=== PATIENT | female | born 1970 | race Caucasian/White ===

== ENCOUNTER 2018-03-23 13:20 | Emergency (ER) | payer MEDICAID, SELFPAY ==
--- NOTE | 2018-03-23 13:20 | DT_ITS ---
This patient was seen during an EMR downtime March 22, 2018 - March 29, 2018. This patient may have a combination of paper and electronic documentation or all paper documentation. All documentation is viewable within the e-chart portion of [employer] [facility] for each patient visit.
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
[2018-03-26 09:31] LABS: Anion Gap 4 (5-15); BUN 12 mg/dL (7-18); BUN/Creat Ratio 16.7 RATIO (10-20); Calcium,Total 8.9 mg/dL (8.5-10.1); Chloride 103 mmol/L (98-107); Creatinine, Serum 0.72 mg/dL (0.55-1.02); EST Glomerular Filtration Rate 91 mL/min (>60); Est Glom Filt Rate - Afr Amer 110 mL/min (>60); Glucose 98 mg/dL (74-106); Potassium 3.9 mmol/L (3.5-5.1); Sodium Level 139 mmol/L (136-145)
[2018-03-26 12:17] LABS: Hemoglobin 12.9 g/dl (12.0-15.0); Mean Corp Hgb Conc 32.3 g/gl (32-36); Mean Corpuscular Hgb 31.7 pg (27.0-32.0); Mean Corpuscular Volume 98.3 fL (81-99); Mean Platelet Vol. 9.1 fl (6.2-12.0); Platelet Count 253 K/mm3 (150-450); RBC Distribution Width CV 15.8 % (11.6-14.6); RBC Distribution Width SD 56.5 fl (35.1-43.9); Red Blood Count 4.07 M/mm3 (4.2-5.4); Scan Indicated on CBC? Y/N NO; White Blood Count 8.8 K/mm3 (4.4-11.0)
[2018-03-26 12:19] LABS: Partial Thromboplast Time 26.7 Seconds (24.1-36.2)
== END 2018-03-23 18:45 | disposition home or self-care (01) ==
LOC: ED 03-25 07:21
PROVIDERS: Emergency Provider Emergency Medicine
DX: S20.211A Contusion of right front wall of thorax, initial encounter (principal); S50.11XA Contusion of right forearm, initial encounter; Y04.0XXA Assault by unarmed brawl or fight, initial encounter; Y93.9 Activity, unspecified; Y92.009 Unspecified place in unspecified non-institutional (private) residence as the place of occurrence of the external cause; J44.9 Chronic obstructive pulmonary disease, unspecified; Z86.73 Personal history of transient ischemic attack (TIA), and cerebral infarction without residual deficits; E11.9 Type 2 diabetes mellitus without complications; I11.0 Hypertensive heart disease with heart failure; I50.9 Heart failure, unspecified; F17.210 Nicotine dependence, cigarettes, uncomplicated; Z79.899 Other long term (current) drug therapy; K21.9 Gastro-esophageal reflux disease without esophagitis; F41.9 Anxiety disorder, unspecified; F32.9 Major depressive disorder, single episode, unspecified; F10.20 Alcohol dependence, uncomplicated; Z99.81 Dependence on supplemental oxygen
CPT/HCPCS: 71101; 73030; 73090; 80048; 84484; 85027; 85610; 85730; 94640; 96374; 99285; A4216

== ENCOUNTER → 2019-10-17 11:47 | Outpatient (CLI) | payer MEDICAID, SELFPAY | PROVIDERS: Family Provider Family Medicine; PCP Family Medicine; Referring Provider Internal Medicine Pulmonary Disease; Visit Provider Internal Medicine Pulmonary Disease | DX: J40 Bronchitis, not specified as acute or chronic (principal); J45.909 Unspecified asthma, uncomplicated | CPT/HCPCS: 87070; 87205 ==

== ENCOUNTER → 2020-06-05 15:21 | Outpatient (CLI) | payer MEDICAID, SELFPAY ==
[2020-06-05 17:06] LABS: Absolute Lymphocyte Count 2.16 X10^3/uL (0.83-4.51); Absolute Neutrophil Count 5.8 X10^3/uL (2.0-7.7); Basophil# 0.05 X10^3/uL; Basophil% 0.6 % (0-1); Eosinophil# 0.42 X10^3/uL; Eosinophils% 4.7 % (0-5); Hematocrit 39.7 % (37-47); Lymphocyte # 2.16 X10^3/ul (4.0); Lymphocyte % 24.1 % (19-41); Mean Corp Hgb Conc 32.7 g/dL (32-36); Mean Corpuscular Volume 94.7 fL (81-99); Mean Platelet Vol. 9.2 fl (6.2-12.0); Monocyte# 0.48 X10^3/uL; Monocyte% 5.4 % (0-10); NRBC Flagged by Analyzer 0 % (0-5); Neutrophil # 5.81 X10^3/uL (2.7-7.7); Neutrophil % 64.9 % (47-70); Platelet Count 268 K/mm3 (150-450); RBC Distribution Width CV 16.4 % (11.6-14.6); RBC Distribution Width SD 57.1 fl (35.1-43.9); Red Blood Count 4.19 M/mm3 (4.2-5.4)
[2020-06-05 17:30] LABS: AST(SGOT) 13 U/L (15-37); Alanine Aminotransfer ALT/SGPT 19 U/L (13-56); Albumin, Serum 3.7 g/dL (3.2-5.0); Alkaline Phosphatase 62 U/L (45-117); Anion Gap 4 (5-15); BUN 14 mg/dL (7-18); BUN/Creat Ratio 17.3 RATIO (10-20); Calcium,Total 9.1 mg/dL (8.5-10.1); Chloride 102 mmol/L (98-107); Creatinine, Serum 0.81 mg/dL (0.55-1.02); EST Glomerular Filtration Rate 79 mL/min (>60); Est Glom Filt Rate - Afr Amer 95 mL/min (>60); Globulin 3.7 g/dL (2.2-4.2); Glucose 86 mg/dL (74-106); Potassium 3.9 mmol/L (3.5-5.1); Protein, Total 7.4 g/dL (6.4-8.2); Sodium Level 137 mmol/L (136-145); Thyroid Stim Hormone (TSH) 0.49 uIU/mL (0.358-3.74)
== END ==
PROVIDERS: PCP Family Medicine; Visit Provider Family Medicine
DX: E11.9 Type 2 diabetes mellitus without complications (principal); E03.9 Hypothyroidism, unspecified; I50.810 Right heart failure, unspecified
CPT/HCPCS: 36415; 80053; 84443; 85025

== ENCOUNTER 2021-03-16 22:48 | Observation (INO) | payer MEDICAID, SELFPAY ==
[2021-03-16 22:49] VITALS: BP 121/71; PULSE 94; RESP 20; TEMP 37.5; O2SAT 92; BMI 38.9
--- NOTE | 2021-03-16 23:08 | EKG12_ITS ---
Test Reason : SOB Blood Pressure : / mmHG Vent. Rate : 077 BPM Atrial Rate : 077 BPM P-R Int : 126 ms QRS Dur : 108 ms QT Int : 388 ms P-R-T Axes : 012 042 027 degrees QTc Int : 439 ms Normal sinus rhythm Low voltage QRS Right bundle branch block Abnormal ECG Confirmed by ELIZABETH MELO, CITLALY ([id number]), film editor supervisor MARIA SIFUENTES ([id number]) on 03/19/2021 1:50:40 PM Referred By: Confirmed By:CITLALY JOHNSON MD
[2021-03-16] MEDS: Ipratropium/Albuterol Sulfate 3 ML AMPUL.NEB INHALATION (23:14)
--- NOTE | 2021-03-16 23:15 | EDS_ITS ---
HPI History of Present Illness Chief Complaint: Shortness of Breath Informant: patient Narrative Narrative: 50-year-old female notes worsening shortness of breath over the past 3 days. Until recently patient will get most of her care at [facility]. She moved to [place]. She notes a history of COPD and CHF. She states that she started to have a runny nose developed cough and shortness of breath. Is progressively worsened. She notes subjective fever for which she has been taking Tylenol. She has had one Covid vaccination. She does wear home oxygen. She notes significant dyspnea on exertion. [facility] Medical History Chronic obstructive lung disease Chronic respiratory failure Congestive heart failure Coronary atherosclerosis of [place] coronary vessel Diabetes mellitus Dysthymic disorder Hypertension Obesity Tobacco use disorder Home Medications albuterol sulfate 2 puff INHALATION Q4H PRN 03/17/21 [History Last Taken Unknown] aspirin 81 mg DAILY 03/17/21 [History Last Taken Unknown] buspirone 30 mg BID 03/17/21 [History Last Taken Unknown] calcium carbonate [Calcium 600] 600 mg DAILY 03/17/21 [History Last Taken Unknown] cetirizine 10 mg DAILY 03/17/21 [History Last Taken Unknown] clopidogrel 75 mg DAILY 03/17/21 [History Last Taken Unknown] fluoxetine 40 mg DAILY 03/17/21 [History Last Taken Unknown] folic acid 1 mg PO DAILY 03/17/21 [History Last Taken Unknown] furosemide 40 mg PO DAILY 03/17/21 [History Last Taken Unknown] gabapentin 600 mg PO TID 03/17/21 [History Last Taken Unknown] ipratropium-albuterol [DuoNeb] 3 ml INHALATION TID 03/17/21 [History Last Taken Unknown] levothyroxine 75 mcg PO DAILY 03/17/21 [History Last Taken Unknown] losartan 25 mg PO DAILY 03/17/21 [History Last Taken Unknown] metformin 500 mg PO BID 03/17/21 [History Last Taken Unknown] mometasone-formoterol [Dulera] 1 inh INHALATION BID 03/17/21 [History Last Taken Unknown] montelukast 10 mg PO QHS 03/17/21 [History Last Taken Unknown] omeprazole 20 mg DAILY 03/17/21 [History Last Taken Unknown] pravastatin 10 mg PO DAILY 03/17/21 [History Last Taken Unknown] trazodone 200 mg QHS 03/17/21 [History Last Taken Unknown] umeclidinium [Incruse Ellipta] 1 inh INHALATION DAILY 03/17/21 [History Last Taken Unknown] Allergy/AdvReac Type Severity Reaction Status Date / Time alprazolam [From Xanax] AdvReac Other Verified 03/16/21 22:55 no surgical history (Noncontributory) Social History (Updated 03/16/21 @ 23:[address] [place] Mackey, DO) Smoking Status: Current every day smoker tobacco type: cigarettes substance use type: does not use ROS ROS ED Constitutional Constitutional ED: Reports chills and fever(s); Denies weight loss Eyes Eyes: Denies change in vision or diplopia ENT ENT ED: Denies ear pain, rhinorrhea or sore throat Cardiovascular Cardiovascular: Denies chest pain, orthopnea, palpitations or racing heartbeat Respiratory/Chest Respiratory/Chest: Reports cough, dyspnea, dyspnea on exertion and sputum; Denies orthopnea Gastrointestinal Gastrointestinal: Reports abdominal pain and nausea; Denies diarrhea or vomiting Genitourinary Genitourinary ED: Denies dysuria, hematuria or urinary frequency Musculoskeletal Musculoskeletal: Reports myalgias and other Details: Patient notes leg swelling 2 days ago but has improved ; Denies arthralgias Integumentary Denies abscess or rash Neurologic Neurologic: Denies headache(s) or weakness Psychiatric Psychiatric: Denies anxiety, depression, suicidal ideation or suicidal thoughts Endocrine Endocrinology: Denies polydipsia, polyphagia or polyuria Allergic/Immunologic Allergic/Immunologic ED: Denies mouth swelling, tongue swelling or urticaria EXAM Physical Exam Const Vital Signs: 03/16/21 22:49 03/16/21 23:23 03/16/21 23:51 Temperature 99.5 F H 100.0 F H Temperature Source Temporal Temporal Pulse Rate 94 99 87 Respiratory Rate 20 H 20 H 20 H Respiratory Effort Blood Pressure 121/71 H 110/67 Blood Pressure Mean 87 81 Pulse Ox 92 96 Oxygen Delivery Method Nasal Cannula Nasal Cannula Oxygen Flow Rate (L/min) 3 3 Fraction of Inspired Oxygen (FIO2) 03/17/21 00:11 03/17/21 00:15 03/17/21 00:49 Temperature 100.0 F H 101.5 F H Temperature Source Temporal Temporal Pulse Rate 88 87 Respiratory Rate 19 H 20 H Respiratory Effort Short of Breath Labored Blood Pressure 114/65 105/95 H Blood Pressure Mean 81 98 Pulse Ox 96 96 Oxygen Delivery Method Nasal Cannula Nasal Cannula Nasal Cannula Oxygen Flow Rate (L/min) 3 3 Fraction of Inspired Oxygen (FIO2) 3 03/17/21 01:07 03/17/21 02:20 Temperature 101.5 F H 98.9 F Temperature Source Temporal Temporal Pulse Rate 80 64 Respiratory Rate 22 H 16 Respiratory Effort Blood Pressure 109/59 L 103/67 Blood Pressure Mean 75 79 Pulse Ox 95 97 Oxygen Delivery Method Nasal Cannula Nasal Cannula Oxygen Flow Rate (L/min) 3 3 Fraction of Inspired Oxygen (FIO2) Positive well nourished, well developed and obese General Appearance ED: well developed Nutritional Appearance: obese HEENT Reports normocephalic, head/scalp atraumatic and moist mucous membranes HEENT Narrative: Rhinorrhea Eyes PERRL and EOMs intact bilaterally Neck no lymphadenopathy, supple and no JVD Resp Effort and Inspection: other Patient is tachypneic Auscultation: rhonchi and wheezes Cardio regular rate, regular rhythm and no murmurs GI normal to inspection, nondistended, normoactive bowel sounds and non-tender Palpation: soft Back/Spine no CVA tenderness and normal ROM Extremity normal to inspection General Extremety ED: Negative for edema General Extremity: Negative for edema Neuro oriented x3 and CN's II-XII intact bilaterally Sensorium / Orientation: alert Motor Exam: strength 5/5 throughout Psych mental status grossly normal Mood & Affect: Negative for depressed or tearful Skin no rashes or lesions noted and no wounds MDM MDM MDM Narrative Medical decision making narrative: My interpretation of the chest x-ray is no acute process. Patient's white count is 8.5 hemoglobin 11.9. Lactic acid is normal. Troponin is negative. Her temperature continued to rise now up to 101.5. With simple ambulation from the bed to bedside commode even while on supplemental oxygen she desaturates to around 84%. Patient received Solu-Medrol and breathing treatments. Rapid Covid and influenza were negative. Covid PCR was sent and negative. After her Covid PCR was negative we ambulated the patient on 3 L 1 L above her baseline of 2. Heart rate increased from 70-102. Respirations were 30 and her pulse ox 76%. Her lung sounds continue to be wheezing and rhonchorous. I will speak with her hospitalist regarding admission Lab Data Labs: Laboratory Results - last 24 hr 03/16/21 03/16/21 03/16/21 23:40 23:40 23:40 WBC 8.5 RBC 4.03 L Hgb 11.9 L Hct 37.8 MCV 93.8 MCH 29.5 MCHC 31.5 L RDW Std Deviation 59.1 H RDW Coeff of Kirstie 17.2 H Plt Count 265 MPV 8.7 Immature Gran % (Auto) 0.200 Neut % (Auto) 74.5 H Lymph % (Auto) 14.3 L [place] % (Auto) 7.6 Eos % (Auto) 2.9 Baso % (Auto) 0.5 Absolute Neuts (auto) 6.3 Absolute Lymphs (auto) 1.22 Nucleated RBC % 0 PT INR APTT Sodium 138 Potassium 3.8 Chloride 102 Carbon Dioxide 31.0 Anion Gap 5 BUN 7 Creatinine 0.83 Estim Creat Clear Calc 65.59 Est GFR (MDRD) Af Amer 92 Est GFR (MDRD) Non-Af 76 BUN/Creatinine Ratio 8.4 L Glucose 97 Lactic Acid 1.8 Calcium 9.2 Total Bilirubin 0.50 AST 16 ALT 14 Alkaline Phosphatase 88 Troponin I < 0.015 B-Natriuretic Peptide Total Protein 7.2 Albumin 3.3 Globulin 3.9 Albumin/Globulin Ratio 0.8 L Urine Color Urine Clarity Urine pH Ur Specific [place] Urine Protein Urine Glucose (UA) Urine Ketones Urine Occult Blood Urine Nitrite Urine Bilirubin Urine Urobilinogen Ur Leukocyte Esterase Urine RBC Urine WBC Ur Squamous Epith Cells Urine Bacteria Urine Mucus COVID-19 (ROSALIND) 03/16/21 03/16/21 03/17/21 23:40 23:40 00:25 WBC RBC Hgb Hct MCV MCH MCHC RDW Std Deviation RDW Coeff of Kirstie Plt Count MPV Immature Gran % (Auto) Neut % (Auto) Lymph % (Auto) [place] % (Auto) Eos % (Auto) Baso % (Auto) Absolute Neuts (auto) Absolute Lymphs (auto) Nucleated RBC % PT 12.9 INR 1.0 APTT 27.0 Sodium Potassium Chloride Carbon Dioxide Anion Gap BUN Creatinine Estim Creat Clear Calc Est GFR (MDRD) Af Amer Est GFR (MDRD) Non-Af BUN/Creatinine Ratio Glucose Lactic Acid Calcium Total Bilirubin AST ALT Alkaline Phosphatase Troponin I B-Natriuretic Peptide 46.3 Total Protein Albumin Globulin Albumin/Globulin Ratio Urine Color Yellow Urine Clarity Clear Urine pH 6.0 Ur Specific [place] 1.010 Urine Protein Negative Urine Glucose (UA) Normal Urine Ketones Negative Urine Occult Blood Negative Urine Nitrite Negative Urine Bilirubin Negative Urine Urobilinogen Normal Ur Leukocyte Esterase Negative Urine RBC 0 SEEN Urine WBC 0 SEEN Ur Squamous Epith Cells 0-5 SEEN Urine Bacteria 0 SEEN Urine Mucus 0 SEEN COVID-19 (ROSALIND) 03/17/21 01:05 WBC RBC Hgb Hct MCV MCH MCHC RDW Std Deviation RDW Coeff of Kirstie Plt Count MPV Immature Gran % (Auto) Neut % (Auto) Lymph % (Auto) [place] % (Auto) Eos % (Auto) Baso % (Auto) Absolute Neuts (auto) Absolute Lymphs (auto) Nucleated RBC % PT INR APTT Sodium Potassium Chloride Carbon Dioxide Anion Gap BUN Creatinine Estim Creat Clear Calc Est GFR (MDRD) Af Amer Est GFR (MDRD) Non-Af BUN/Creatinine Ratio Glucose Lactic Acid Calcium Total Bilirubin AST ALT Alkaline Phosphatase Troponin I B-Natriuretic Peptide Total Protein Albumin Globulin Albumin/Globulin Ratio Urine Color Urine Clarity Urine pH Ur Specific [place] Urine Protein Urine Glucose (UA) Urine Ketones Urine Occult Blood Urine Nitrite Urine Bilirubin Urine Urobilinogen Ur Leukocyte Esterase Urine RBC Urine WBC Ur Squamous Epith Cells Urine Bacteria Urine Mucus COVID-19 (ROSALIND) Not Detected Radiography Diagnostic Testing: Radiology Impression Chest X-Ray 03/16/21 23:49 IMPRESSION: Normal x-ray examination of the chest. Electronically Signed: Martin Yao MD at 0:50 EDT , Service support , EKG Initial EKG: Attestation: I personally reviewed and interpreted this EKG as follows: Comments: EKG demonstrates a normal sinus rhythm at a rate of 77. Noted right bundle anselmo block. Discharge Plan Dx/Rx/DC Orders Clinical Impression: Acute febrile illness, Asthma exacerbation in COPD, Acute on chronic respiratory failure with hypoxemia Disposition Disposition: [facility]
[2021-03-16] MEDS: Albuterol 2.5 MG/3 ML VIAL.NEB. INHALATION ×3 (23:16)
[2021-03-16 23:23] VITALS: PULSE 99; RESP 20
--- NOTE | 2021-03-16 23:49 | RAD_ITS ---
STUDY: X-RAY CHEST REASON FOR EXAM: Female, 50 years old. cough TECHNIQUE: AP portable chest. COMPARISON: March 23, 2018. FINDINGS: No focal infiltrates or effusions. No pneumothorax. Normal size heart. Normal mediastinum and lonny. Normal visualized pulmonary arteries. Normal visualized aortic arch and descending thoracic aorta. Normal visualized thoracic spine. Normal visualized ribs, clavicles, and shoulders. There is no demonstrated abnormality of the visualized soft tissue structures of the upper abdomen. RAD/Chest 1 View (Portable) IMPRESSION: Normal x-ray examination of the chest. Electronically Signed: Martin Yao MD at 0:50 EDT , Service support ,
[2021-03-16 23:51] VITALS: BP 110/67; PULSE 87; RESP 20; TEMP 37.8; O2SAT 96
[2021-03-16 23:56] LABS: Absolute Lymphocyte Count 1.22 X10^3/uL (0.83-4.51); Absolute Neutrophil Count 6.3 X10^3/uL (2.0-7.7); Basophil# 0.04 X10^3/uL; Basophil% 0.5 % (0-1); Eosinophil# 0.25 X10^3/uL; Eosinophils% 2.9 % (0-5); Hematocrit 37.8 % (37-47); Hemoglobin 11.9 g/dL (12.0-15.0); Lymphocyte # 1.22 X10^3/ul (0.83-4.51); Lymphocyte % 14.3 % (19-41); Mean Corp Hgb Conc 31.5 g/dL (32-36); Mean Corpuscular Hgb 29.5 pg (27.0-32.0); Mean Corpuscular Volume 93.8 fL (81-99); Mean Platelet Vol. 8.7 fl (6.2-12.0); Monocyte# 0.65 X10^3/uL; Monocyte% 7.6 % (0-10); NRBC Flagged by Analyzer 0 % (0-5); Neutrophil # 6.33 X10^3/uL (2.7-7.7); Neutrophil % 74.5 % (47-70); Platelet Count 265 K/mm3 (150-450); RBC Distribution Width CV 17.2 % (11.6-14.6); RBC Distribution Width SD 59.1 fl (35.1-43.9); Red Blood Count 4.03 M/mm3 (4.2-5.4); White Blood Count 8.5 K/mm3 (4.4-11.0)
[2021-03-17] VITALS (19 sets, daily range): BP systolic 89–114; BP diastolic 45–95; PULSE 55–88; RESP 15–22; TEMP 36.6–38.6; O2SAT 92–98; BMI 38.6
[2021-03-17 00:01] LABS: Prothrombin Time (Protime)PT. 12.9 SECONDS (11.7-14.9)
[2021-03-17] MEDS: MethylPREDNISolone 125 MG/2 ML Vial IV (00:09)
[2021-03-17 00:22] LABS: BNP,B-Type NATRIURETIC PEPTIDE 46.3 pg/mL (0-100)
[2021-03-17 00:25] LABS: ALB/GLOB Ratio 0.8 RATIO (0.9-2.4); AST(SGOT) 16 U/L (15-37); Alanine Aminotransfer ALT/SGPT 14 U/L (13-56); Albumin, Serum 3.3 g/dL (3.2-5.0); Alkaline Phosphatase 88 U/L (45-117); Anion Gap 5 (5-15); BUN 7 mg/dL (7-18); BUN/Creat Ratio 8.4 RATIO (10-20); Calcium,Total 9.2 mg/dL (8.5-10.1); Chloride 102 mmol/L (98-107); Creatinine, Serum 0.83 mg/dL (0.55-1.02); EST Glomerular Filtration Rate 76 mL/min (>60); Est Glom Filt Rate - Afr Amer 92 mL/min (>60); Estimated Creatinine Clearance 65.59 ml/min; Globulin 3.9 g/dL (2.2-4.2); Glucose 97 mg/dL (74-106); Lactic Acid 1.8 mmol/L (0.4-1.9); Potassium 3.8 mmol/L (3.5-5.1); Protein, Total 7.2 g/dL (6.4-8.2); Sodium Level 138 mmol/L (136-145)
--- NOTE | 2021-03-17 00:52 | NURSING ---
Patient up to bsc that was placed next to the bed. She became very labored with breathing while ambulating and taking her pants up and down and pulse ox dropped to 88% on 3L NC. Dr Mackey is aware. She was back to 94% in less than 4 minutes.
[2021-03-17] MEDS: Ketorolac 30 MG/ML Syringe IV (01:03)
[2021-03-17] MEDS: Acetaminophen 500 MG Tablet 1000 MG PO (01:03)
[2021-03-17 01:14] LABS: Bacteria 0 SEEN /hpf (None Seen); Mucous, Urine 0 SEEN /hpf (<or=2+); Red Blood Cells-Urine 0 SEEN /hpf (0-5); White Blood Cells 0 SEEN /hpf (0-5)
[2021-03-17 01:16] LABS: Color, Urine Yellow (Yellow); Glucose, Dipstick Normal (Normal); Ketone-Dipstick Negative (Negative); Leukocyte Esterase-Dipstick Negative /ul (Negative); Nitrite-Dipstick Negative (Negative); Occult Blood-Urine Negative /ul (Negative); Protein-Dipstick Negative (Negative); Urine Bilirubin Dipstick Negative (Negative); Urine Clarity Clear (Clear); Urine Urobilinogen Normal (Normal)
[2021-03-17 01:22] LABS: Squamous Epithelial Cells - UA 0-5 SEEN /hpf (5-10)
--- NOTE | 2021-03-17 03:48 | ED.RN ---
PT HR STARTED AT 75 AND ENDED AT 103 BY THE END OF AMBULATION WITH INCREASE IN WHEEZING/ SOB.
[2021-03-17] MEDS: Ipratropium/Albuterol Sulfate 3 ML AMPUL.NEB INHALATION ×6 (03:58→23:35)
--- NOTE | 2021-03-17 04:06 | PCM.HP.STD ---
HPI - General General Date of Admission: 03/17/21 Date of Service: 03/17/21 Chief Complaint: Shortness of breath. HPI Narrative TJ BIGGS, is a 51 F with past medical history as mentioned above presented to the emergency room because of shortness of breath. Her symptoms started 3 to 4 days ago, increasing shortness of breath, both at exertion and with rest, associated with dry cough, runny nose and significant wheezing, she need to go up on her oxygen up to 4 L without improvement and without aggravating or relieving factors. Also, she reported subjective fever. She received her cough vaccine first dose beginning of February and she is supposed to go for the second dose soon. In the emergency department, patient was febrile, blood pressure and heart rate were stable, she required oxygen of up to 3 L. Routine blood work was unremarkable. EKG revealed normal sinus rhythm, RBBB, no acute changes. Troponin was negative. Chest x-ray showed no acute findings. COVID-19 antigen and PCR both came back negative. Nasal swab for influenza a and B were negative. She received IV Solu-Medrol, DuoNeb x2 and albuterol x1 and she remained dyspneic, tachypneic and wheezing. Reportedly, pulse ox after treatment went down to mid 70s with ambulation. She is being admitted for acute COPD exacerbation and acute febrile illness. [facility] Medical History (Updated 03/17/21 @ 04:[address] Mckenna Dudley MD) Congestive heart failure Coronary atherosclerosis of [place] coronary vessel Dysthymic disorder Obesity Tobacco use disorder Home Medications albuterol sulfate 2 puff INHALATION Q4H PRN 03/17/21 [History Last Taken Unknown] aspirin 81 mg DAILY 03/17/21 [History Last Taken Unknown] buspirone 30 mg BID 03/17/21 [History Last Taken Unknown] calcium carbonate [Calcium 600] 600 mg DAILY 03/17/21 [History Last Taken Unknown] cetirizine 10 mg DAILY 03/17/21 [History Last Taken Unknown] clopidogrel 75 mg DAILY 03/17/21 [History Last Taken Unknown] fluoxetine 40 mg DAILY 03/17/21 [History Last Taken Unknown] folic acid 1 mg PO DAILY 03/17/21 [History Last Taken Unknown] furosemide 40 mg PO DAILY 03/17/21 [History Last Taken Unknown] gabapentin 600 mg PO TID 03/17/21 [History Last Taken Unknown] ipratropium-albuterol [DuoNeb] 3 ml INHALATION TID 03/17/21 [History Last Taken Unknown] levothyroxine 75 mcg PO DAILY 03/17/21 [History Last Taken Unknown] losartan 25 mg PO DAILY 03/17/21 [History Last Taken Unknown] metformin 500 mg PO BID 03/17/21 [History Last Taken Unknown] mometasone-formoterol [Dulera] 1 inh INHALATION BID 03/17/21 [History Last Taken Unknown] montelukast 10 mg PO QHS 03/17/21 [History Last Taken Unknown] omeprazole 20 mg DAILY 03/17/21 [History Last Taken Unknown] pravastatin 10 mg PO DAILY 03/17/21 [History Last Taken Unknown] trazodone 200 mg QHS 03/17/21 [History Last Taken Unknown] umeclidinium [Incruse Ellipta] 1 inh INHALATION DAILY 03/17/21 [History Last Taken Unknown] Allergy/AdvReac Type Severity Reaction Status Date / Time alprazolam [From Xanax] AdvReac Other Verified 03/16/21 22:55 no significant family history Surgical History (Updated 03/17/21 @ 04:[address] Mckenna Dudley MD) H/O tubal ligation History of cholecystectomy History of salpingo-oophorectomy Social History (Updated 03/16/21 @ 23:[address] Indio Mackey DO) Smoking Status: Current every day smoker tobacco type: cigarettes substance use type: does not use ROS Constitutional Constitutional: Reports fever(s); Denies anorexia, chills, fatigue or malaise Eyes Eyes: Denies blurry vision, change in eye color, change in vision, double vision or eye pain ENT HEENT: Reports other Details: Runny nose. ; Denies ear pain, epistaxis, headache(s), nasal congestion, post nasal drip or sore throat Cardiovascular Cardiovascular: Denies chest pain, dyspnea on exertion, edema, lightheadedness, orthopnea, palpitations, paroxysmal nocturnal dyspnea or syncope Respiratory/Chest Respiratory/Chest: Reports cough, shortness of breath at rest, shortness of breath with exertion and wheezing; Denies dyspnea, hemoptysis or productive cough Gastrointestinal Gastrointestinal: Denies abdominal pain, constipation, diarrhea, hematemesis, hematochezia, melena, nausea or vomiting Genitourinary Genitourinary: Denies burning urination, dysuria, hematuria, urinary hesitancy or urinary urgency Musculoskeletal Musculoskeletal: Denies arthralgias, back pain, joint pain, joint swelling, myalgias or neck pain Neurologic Neurologic: Denies confusion, dizziness, focal weakness, headache(s), numbness, paresthesias, seizures, tingling or tremor(s) Psychiatric Psychiatric: Reports depression; Denies anxiety, hallucinations, homicidal ideation or suicidal ideation Endocrine Endocrinology: Denies change in body appearance, cold intolerance, heat intolerance, polydipsia or polyuria Hematologic/Lymphatic Hematologic/Lymphatic: Denies easy bleeding, easy bruising or lymphadenopathy Allergic/Immunologic Allergic/Immunologic: Denies itchy eyes, rhinitis, throat swelling, tongue swelling, hives, urticaria or wheezing Vital Signs Vital Signs Vital Signs: 03/16/21 22:49 03/16/21 23:23 03/16/21 23:51 Temperature 99.5 F H 100.0 F H Temperature Source Temporal Temporal Pulse Rate 94 99 87 Respiratory Rate 20 H 20 H 20 H Respiratory Effort Blood Pressure 121/71 H 110/67 Blood Pressure Mean 87 81 Pulse Ox 92 96 Oxygen Delivery Method Nasal Cannula Nasal Cannula Oxygen Flow Rate (L/min) 3 3 Fraction of Inspired Oxygen (FIO2) 03/17/21 00:11 03/17/21 00:15 03/17/21 00:49 Temperature 100.0 F H 101.5 F H Temperature Source Temporal Temporal Pulse Rate 88 87 Respiratory Rate 19 H 20 H Respiratory Effort Short of Breath Labored Blood Pressure 114/65 105/95 H Blood Pressure Mean 81 98 Pulse Ox 96 96 Oxygen Delivery Method Nasal Cannula Nasal Cannula Nasal Cannula Oxygen Flow Rate (L/min) 3 3 Fraction of Inspired Oxygen (FIO2) 3 03/17/21 01:07 03/17/21 02:20 03/17/21 03:58 Temperature 101.5 F H 98.9 F Temperature Source Temporal Temporal Pulse Rate 80 64 72 Respiratory Rate 22 H 16 15 Respiratory Effort Blood Pressure 109/59 L 103/67 Blood Pressure Mean 75 79 Pulse Ox 95 97 Oxygen Delivery Method Nasal Cannula Nasal Cannula Oxygen Flow Rate (L/min) 3 3 Fraction of Inspired Oxygen (FIO2) Weight Weight: 219 lb 9.286 oz Body Mass Index (BMI) 38.9 Physical Exam Const alert, oriented x3 and no limitations Constitutional Narrative: Minimally short of breath. General Appearance: cooperative, comfortable and well kempt HEENT normocephalic, head/scalp atraumatic and moist oral mucous membranes Head and Scalp: normocephalic and atraumatic Eyes PERRL, EOMs intact bilaterally, conjunctivae normal and no scleral icterus General Eye: normal appearance of both eyes Periorbital: periorbital findings normal Neck no lymphadenopathy, supple, no meningeal signs, no JVD and no carotid bruits General: trachea midline Thyroid: thyroid normal Resp normal air movement Resp Narrative: Decreased breath sounds bilateral, bilateral expiratory wheezes. Auscultation: wheezes; Negative for rales or rhonchi Cardio regular rate, regular rhythm, S1 normal heart sound, S2 normal heart sound, no murmurs and no JVD Peripheral Pulses: pulses 2+ throughout GI normal to inspection, nondistended, normoactive bowel sounds, soft to palpation, non-tender and non-distended; Negative for hepatosplenomegaly Auscultation: normoactive bowel sounds Extremity normal to inspection, full ROM and no clubbing, cyanosis or edema Skin no rashes or lesions noted, no wounds and no petechiae Neuro oriented x3, CN's II-XII intact bilaterally and moves all extremities Sensorium / Orientation: alert Speech: speech normal Motor Exam: strength 5/5 throughout Psych mental status grossly normal, affect normal and denies hallucinations Lab / Micro Data Result Diagrams: 03/16/21 23:40 03/16/21 23:40 Labs: Laboratory Results - last 24 hr 03/16/21 03/16/21 03/16/21 23:40 23:40 23:40 WBC 8.5 RBC 4.03 L Hgb 11.9 L Hct 37.8 MCV 93.8 MCH 29.5 MCHC 31.5 L RDW Std Deviation 59.1 H RDW Coeff of Kirstie 17.2 H Plt Count 265 MPV 8.7 Immature Gran % (Auto) 0.200 Neut % (Auto) 74.5 H Lymph % (Auto) 14.3 L [place]comb % (Auto) 7.6 Eos % (Auto) 2.9 Baso % (Auto) 0.5 Absolute Neuts (auto) 6.3 Absolute Lymphs (auto) 1.22 Nucleated RBC % 0 PT INR APTT Sodium 138 Potassium 3.8 Chloride 102 Carbon Dioxide 31.0 Anion Gap 5 BUN 7 Creatinine 0.83 Estim Creat Clear Calc 65.59 Est GFR (MDRD) Af Amer 92 Est GFR (MDRD) Non-Af 76 BUN/Creatinine Ratio 8.4 L Glucose 97 Lactic Acid 1.8 Calcium 9.2 Total Bilirubin 0.50 AST 16 ALT 14 Alkaline Phosphatase 88 Troponin I < 0.015 B-Natriuretic Peptide Total Protein 7.2 Albumin 3.3 Globulin 3.9 Albumin/Globulin Ratio 0.8 L Urine Color Urine Clarity Urine pH Ur Specific [place] Urine Protein Urine Glucose (UA) Urine Ketones Urine Occult Blood Urine Nitrite Urine Bilirubin Urine Urobilinogen Ur Leukocyte Esterase Urine RBC Urine WBC Ur Squamous Epith Cells Urine Bacteria Urine Mucus COVID-19 (ROSALIND) 03/16/21 03/16/21 03/17/21 23:40 23:40 00:25 WBC RBC Hgb Hct MCV MCH MCHC RDW Std Deviation RDW Coeff of Kirstie Plt Count MPV Immature Gran % (Auto) Neut % (Auto) Lymph % (Auto) [place]comb % (Auto) Eos % (Auto) Baso % (Auto) Absolute Neuts (auto) Absolute Lymphs (auto) Nucleated RBC % PT 12.9 INR 1.0 APTT 27.0 Sodium Potassium Chloride Carbon Dioxide Anion Gap BUN Creatinine Estim Creat Clear Calc Est GFR (MDRD) Af Amer Est GFR (MDRD) Non-Af BUN/Creatinine Ratio Glucose Lactic Acid Calcium Total Bilirubin AST ALT Alkaline Phosphatase Troponin I B-Natriuretic Peptide 46.3 Total Protein Albumin Globulin Albumin/Globulin Ratio Urine Color Yellow Urine Clarity Clear Urine pH 6.0 Ur Specific [place] 1.010 Urine Protein Negative Urine Glucose (UA) Normal Urine Ketones Negative Urine Occult Blood Negative Urine Nitrite Negative Urine Bilirubin Negative Urine Urobilinogen Normal Ur Leukocyte Esterase Negative Urine RBC 0 SEEN Urine WBC 0 SEEN Ur Squamous Epith Cells 0-5 SEEN Urine Bacteria 0 SEEN Urine Mucus 0 SEEN COVID-19 (ROSALIND) 03/17/21 01:05 WBC RBC Hgb Hct MCV MCH MCHC RDW Std Deviation RDW Coeff of Kirstie Plt Count MPV Immature Gran % (Auto) Neut % (Auto) Lymph % (Auto) [place] % (Auto) Eos % (Auto) Baso % (Auto) Absolute Neuts (auto) Absolute Lymphs (auto) Nucleated RBC % PT INR APTT Sodium Potassium Chloride Carbon Dioxide Anion Gap BUN Creatinine Estim Creat Clear Calc Est GFR (MDRD) Af Amer Est GFR (MDRD) Non-Af BUN/Creatinine Ratio Glucose Lactic Acid Calcium Total Bilirubin AST ALT Alkaline Phosphatase Troponin I B-Natriuretic Peptide Total Protein Albumin Globulin Albumin/Globulin Ratio Urine Color Urine Clarity Urine pH Ur Specific [place] Urine Protein Urine Glucose (UA) Urine Ketones Urine Occult Blood Urine Nitrite Urine Bilirubin Urine Urobilinogen Ur Leukocyte Esterase Urine RBC Urine WBC Ur Squamous Epith Cells Urine Bacteria Urine Mucus COVID-19 (ROSALIND) Not Detected Micro: Microbiology 03/16/21 23:40 SARS-CoV-2 Antigen (Rapid) - Final Interface Orders 03/16/21 23:12 Influenza Types A,B Direct FA (ERIN) - Final Mucosa - Nasopharyngeal Radiology Impression Chest X-Ray 03/16/21 23:49 IMPRESSION: Normal x-ray examination of the chest. Electronically Signed: Martin Yao MD at 0:50 EDT , Service support , Assessment & Plan Assessment/Plan (1) Acute febrile illness: (2) COPD with acute exacerbation: (3) Depression: (4) Chronic respiratory failure with hypoxia: (5) COPD (chronic obstructive pulmonary disease): (6) Diabetes mellitus, type 2: (7) Hypothyroidism: (8) HTN (hypertension): (9) Hyperlipidemia: PLAN: This is a 51 years old female patient presented to the emergency room because of shortness of breath, wheezing, cough and subjective fever, tested negative for COVID-19 both by antigen and PCR and she was found to have acute COPD exacerbation as well as acute febrile illness. #1 acute COPD exacerbation: Patient received DuoNeb nebulizer x2, albuterol x1 in the ED and she remained with significant wheezing, pulse ox dropped down to mid 70s upon ambulation reportedly. She has spiked a fever in the ED. Chest x-ray showed no acute findings. EKG reviewed as above, no acute findings. COVID-19 antigen and PCR were negative. Nasal swab for influenza a and B were negative. Plan: Admit to Med[facility] floor, DuoNeb every 4 hours, albuterol as needed, start IV Solu-Medrol, Robitussin as needed, incentive spirometer, chest physiotherapy, PT OT evaluation and treatment. #2 acute febrile illness: Probably due to viral illness. Chest x-ray showed no acute findings. Urinalysis was unremarkable. As mentioned above, COVID-19 antigen and PCR was negative. Nasal swab for influenza a and B were negative. Plan: Blood culture, monitor. At this time, no indication for IV antibiotics. #3 COPD/chronic respiratory failure: On home oxygen at 2 L. Plan as above. #4 type 2 diabetes mellitus: ADA diet, Accu-Cheks, insulin sliding scale, continue metformin. #5 CAD: Without prior cardiac interventions. Stable, EKG showed no acute changes. Continue aspirin, Plavix, statins and losartan. #6 hypertension: Blood pressure stable, continue losartan, Lasix. #7 hypothyroidism: Continue levothyroxine. #8 hyperlipidemia: Continue statins. #9 depression: Continue BuSpar and trazodone. #10 DVT prophylaxis: Subcu Lovenox. This note was generated with [employer] dictation software. It may contain incorrect words, spelling, and punctuation that were not noted in checking the note before signing. Visit Charges Inpatient E&M: 25581 Init Hosp L2
--- NOTE | 2021-03-17 04:25 | ED.RN ---
PAtient sleeping for bp check and dr lara aware. Patient stable overall and given okay to take her to floor by doctor.
[2021-03-17] MEDS: Levothyroxine 75 MCG Tablet PO (05:35)
[2021-03-17] MEDS: Insulin Lispro 100 UNIT/ML INSULN.PEN SC ×3 (05:35→23:31)
[2021-03-17] MEDS: Gabapentin 600 MG Tablet PO ×3 (05:35→23:30)
[2021-03-17 05:46] LABS: Bedside Glucose 175 mg/dL (70-110)
[2021-03-17] MEDS: Pantoprazole Sodium 20 MG Tablet PO (10:04)
[2021-03-17] MEDS: busPIRone 15 MG TABLET 30 MG PO ×2 (10:04→23:27)
[2021-03-17] MEDS: Loratadine 10 MG Tablet PO (10:04)
[2021-03-17] MEDS: Enoxaparin 40 MG/0.4 ML Syringe SC (10:04)
[2021-03-17] MEDS: Furosemide 40 MG Tablet PO (10:04)
[2021-03-17] MEDS: FLUoxetine 20 MG Capsule 40 MG PO (10:04)
[2021-03-17] MEDS: Clopidogrel Bisulfate 75 MG Tablet PO (10:05)
[2021-03-17] MEDS: metFORMIN HCl 500 MG Tablet PO ×2 (10:05→17:07)
[2021-03-17] MEDS: Aspirin E.C. 81 MG Tablet PO (10:05)
[2021-03-17] MEDS: Folic Acid 1 MG Tablet PO (10:05)
[2021-03-17] MEDS: Losartan Potassium 25 MG Tablet PO (10:06)
--- NOTE | 2021-03-17 11:34 | PN.HOSP_ITS ---
Hospitalist Note Mrs. Alvarado is a 51-year-old female with past medical history of COPD O2 dependent on 2 L who presented to the emergency department secondary to sh ortness of breath. She had symptoms for 3 to 4 days and had the need to increase her oxygen to 4 L. Given the fact that she had not improved she came to the emergency department. She was febrile in the emergency room but was otherwise stable. Oxygen saturations were stable on 3 L nasal cannula. Covid antigen and PCR were negative. Nasal swab for influenza was negative. Her oxygenation was poor with ambulation despite supplemental oxygen with sats in the mid 70s in the ED after treatment with steroids and nebulizer. She was therefore admitted for an acute exacerbation of COPD OPD and acute febrile illness. Her chest x-ray was unremarkable. Blood cultures are pending. Respiratory PCR is pending. We will continue to hold antimicrobials at this time and treat for acute exacerbation of COPD with increased supplemental oxygen, pulmonary toilet, and IV steroids.
[2021-03-17 17:05] LABS: Bedside Glucose 271 mg/dL (70-110)
[2021-03-17] MEDS: 0.9% Saline Lock 10 ML Syringe IV ×2 (17:08→23:41)
[2021-03-17 17:16] LABS: Bedside Glucose 144 mg/dL (70-110)
[2021-03-17] MEDS: Acetaminophen 325 MG Tablet 650 MG PO (19:25)
[2021-03-17] MEDS: Pravastatin 20 MG Tablet 10 MG PO (23:27)
[2021-03-17] MEDS: traZODone 100 MG Tablet 200 MG PO (23:28)
[2021-03-17] MEDS: Montelukast 10 MG Tablet PO (23:30)
[2021-03-18 00:05] LABS: Bedside Glucose 158 mg/dL (70-110)
[2021-03-18 02:04] VITALS: BP 103/67; PULSE 58; RESP 18; TEMP 37; O2SAT 96
[2021-03-18 02:11] VITALS: RESP 18
[2021-03-18 03:34] VITALS: PULSE 60; RESP 18
[2021-03-18] MEDS: Ipratropium/Albuterol Sulfate 3 ML AMPUL.NEB INHALATION ×3 (03:34→11:36)
[2021-03-18 06:23] LABS: Absolute Lymphocyte Count 0.49 X10^3/uL (0.83-4.51); Absolute Neutrophil Count 5.9 X10^3/uL (2.0-7.7); Basophil# 0.01 X10^3/uL; Basophil% 0.1 % (0-1); Hematocrit 36.4 % (37-47); Hemoglobin 11.4 g/dL (12.0-15.0); Lymphocyte # 0.49 X10^3/ul (0.83-4.51); Lymphocyte % 7.3 % (19-41); Mean Corp Hgb Conc 31.3 g/dL (32-36); Mean Corpuscular Hgb 29.3 pg (27.0-32.0); Mean Corpuscular Volume 93.6 fL (81-99); Mean Platelet Vol. 9.2 fl (6.2-12.0); Monocyte# 0.24 X10^3/uL; Monocyte% 3.6 % (0-10); NRBC Flagged by Analyzer 0 % (0-5); Neutrophil # 5.91 X10^3/uL (2.7-7.7); Neutrophil % 88.7 % (47-70); POSITIVE DIFFERENTIAL YES; Platelet Count 248 K/mm3 (150-450); RBC Distribution Width CV 16.7 % (11.6-14.6); RBC Distribution Width SD 57.9 fl (35.1-43.9); Red Blood Count 3.89 M/mm3 (4.2-5.4); White Blood Count 6.7 K/mm3 (4.4-11.0)
[2021-03-18 06:27] LABS: Differential Indicated SCAN CRITERIA MET
[2021-03-18] MEDS: Gabapentin 600 MG Tablet PO (06:39)
[2021-03-18] MEDS: Levothyroxine 75 MCG Tablet PO (06:40)
[2021-03-18] MEDS: Insulin Lispro 100 UNIT/ML INSULN.PEN SC (06:41)
[2021-03-18] MEDS: 0.9% Saline Lock 10 ML Syringe IV (06:42)
[2021-03-18 06:52] LABS: Anion Gap 4 (5-15); BUN 16 mg/dL (7-18); BUN/Creat Ratio 21.8 RATIO (10-20); Calcium,Total 9.5 mg/dL (8.5-10.1); Chloride 102 mmol/L (98-107); Creatinine, Serum 0.74 mg/dL (0.55-1.02); EST Glomerular Filtration Rate 88 mL/min (>60); Est Glom Filt Rate - Afr Amer 106 mL/min (>60); Estimated Creatinine Clearance 72.73 ml/min; Glucose 195 mg/dL (74-106); Potassium 4.5 mmol/L (3.5-5.1); Sodium Level 137 mmol/L (136-145)
[2021-03-18 07:06] LABS: Bedside Glucose 190 mg/dL (70-110)
[2021-03-18 07:07] VITALS: PULSE 65; RESP 18; O2SAT 98
[2021-03-18] MEDS: Clopidogrel Bisulfate 75 MG Tablet PO (08:34)
[2021-03-18] MEDS: FLUoxetine 20 MG Capsule 40 MG PO (08:34)
[2021-03-18] MEDS: Furosemide 40 MG Tablet PO (08:35)
[2021-03-18] MEDS: Pantoprazole Sodium 20 MG Tablet PO (08:35)
[2021-03-18] MEDS: Folic Acid 1 MG Tablet PO (08:35)
[2021-03-18] MEDS: metFORMIN HCl 500 MG Tablet PO (08:35)
[2021-03-18] MEDS: busPIRone 15 MG TABLET 30 MG PO (08:35)
[2021-03-18] MEDS: Aspirin E.C. 81 MG Tablet PO (08:36)
[2021-03-18] MEDS: Loratadine 10 MG Tablet PO (08:36)
[2021-03-18] MEDS: Enoxaparin 40 MG/0.4 ML Syringe SC (08:36)
--- NOTE | 2021-03-18 09:11 | PCM.DC.SUM ---
Providers Date of Admission: 03/17/21 Primary Care Physician: Dr. Jeanne Lagunas MD Reason For Visit: ACUTE COPD EXACERBATION Diagnosis Discharge Diagnosis (1) Acute febrile illness: Status: Acute Code(s): R50.9 - Fever, unspecified (2) COPD with acute exacerbation: Status: Acute Code(s): J44.1 - Chronic obstructive pulmonary disease with (acute) exacerbation (3) Depression: Status: Chronic Code(s): F32.9 - Major depressive disorder, single episode, unspecified (4) Chronic respiratory failure with hypoxia: Status: Chronic Code(s): J96.11 - Chronic respiratory failure with hypoxia (5) COPD (chronic obstructive pulmonary disease): Status: Chronic Code(s): J44.9 - Chronic obstructive pulmonary disease, unspecified (6) Diabetes mellitus, type 2: Status: Chronic Code(s): E11.9 - Type 2 diabetes mellitus without complications (7) Hypothyroidism: Status: Chronic Code(s): E03.9 - Hypothyroidism, unspecified (8) HTN (hypertension): Status: Chronic Code(s): I10 - Essential (primary) hypertension (9) Hyperlipidemia: Status: Chronic Code(s): E78.5 - Hyperlipidemia, unspecified Medications at Discharge Home Medications Dulera 2 inh INHALATION BID 03/17/21 Incruse Ellipta 1 inh INHALATION DAILY 03/17/21 albuterol sulfate 2 puff INHALATION Q4H PRN 03/17/21 aspirin 81 mg PO DAILY 03/17/21 buspirone 30 mg PO BID 03/17/21 calcium carbonate [Calcium 600] 600 mg PO DAILY 03/17/21 cetirizine 10 mg PO DAILY 03/17/21 clopidogrel 75 mg PO DAILY 03/17/21 fluoxetine 60 mg PO DAILY 03/17/21 folic acid 1 mg PO DAILY 03/17/21 furosemide 40 mg PO DAILY 03/17/21 gabapentin 600 mg PO TID 03/17/21 ipratropium-albuterol 3 ml INHALATION TID 03/17/21 levothyroxine 75 mcg PO DAILY 03/17/21 losartan 25 mg PO DAILY 03/17/21 metformin 500 mg PO BID 03/17/21 montelukast 10 mg PO QHS 03/17/21 omeprazole 20 mg PO DAILY 03/17/21 pravastatin 10 mg PO DAILY 03/17/21 trazodone 200 mg PO QHS 03/17/21 doxycycline hyclate [Vibramycin] 100 mg PO DAILY #7 cap 03/18/21 prednisone 40 mg PO DAILY #10 tab 03/18/21 Hospital Course Summary of Care Provided Minutes Spent on Discharge: 35 Hospital Course: Patient is a 51-year-old lady with history of COPD on baseline home O2 presented with progressive shortness of breath 1. COPD with acute exacerbation ?Patient admitted to monitored bed managed with bronchodilator treatment, supplemental oxygen and systemic steroid. Patient condition did improve 2. Chronic hypoxic respiratory failure ?Secondary to COPD patient is on Baseline home oxygen 3. Diabetes mellitus type II -patient's oral hypoglycemics held. Placed on long acting insulin, Accu-Cheks a.c. and at bedtime and covered with sliding scale insulin 4. Hypertension - Blood pressure controlled, home medications continued with dose adjustment as needed 5. Dyslipidemia -Patient is on statin therapy, continued at home dose 6. Hypothyroidism - Patient is on levothyroxine home dose continued 7. Chronic congestive heart failure with preserved ejection fraction ?Patient is on diuretics did continue Physical Exam Narrative GENERAL: cooperative HEENT: Atraumatic; EYES; Anicteric, Normal Conjunctiva NECK; supple, normal thyroid, RESPIRATORY: Diminished to auscultation CARDIOVASCULAR: Regular S1 S2, EXTREMITIES: No edema, no clubbing, MUSCULOSKELETAL: no muscle waisting NEURO: Awake; no lateralizing signs. SKIN: No Rash PSYCH; Flat affect ABG / Lab / Microbiology Data Result Diagrams: 03/18/21 05:41 03/18/21 05:41 Laboratory: Laboratory Results - last 24 hr 03/17/21 03/17/21 03/17/21 12:06 17:03 23:33 WBC RBC Hgb Hct MCV MCH MCHC RDW Std Deviation RDW Coeff of Kirstie Plt Count MPV Immature Gran % (Auto) Neut % (Auto) Lymph % (Auto) [place] % (Auto) Eos % (Auto) Baso % (Auto) Absolute Neuts (auto) Absolute Lymphs (auto) Nucleated RBC % Sodium Potassium Chloride Carbon Dioxide Anion Gap BUN Creatinine Estim Creat Clear Calc Est GFR (MDRD) Af Amer Est GFR (MDRD) Non-Af BUN/Creatinine Ratio Glucose Calcium POC Glucose 271 H 144 H 158 H 03/18/21 03/18/21 03/18/21 05:41 05:41 06:37 WBC 6.7 RBC 3.89 L Hgb 11.4 L Hct 36.4 L MCV 93.6 MCH 29.3 MCHC 31.3 L RDW Std Deviation 57.9 H RDW Coeff of Kirstie 16.7 H Plt Count 248 MPV 9.2 Immature Gran % (Auto) 0.300 Neut % (Auto) 88.7 H Lymph % (Auto) 7.3 L [place] % (Auto) 3.6 Eos % (Auto) 0.0 Baso % (Auto) 0.1 Absolute Neuts (auto) 5.9 Absolute Lymphs (auto) 0.49 L Nucleated RBC % 0 Sodium 137 Potassium 4.5 Chloride 102 Carbon Dioxide 31.0 Anion Gap 4 L BUN 16 Creatinine 0.74 Estim Creat Clear Calc 72.73 Est GFR (MDRD) Af Amer 106 Est GFR (MDRD) Non-Af 88 BUN/Creatinine Ratio 21.8 H Glucose 195 H Calcium 9.5 POC Glucose 190 H Microbiology: Microbiology 03/16/21 23:40 Respiratory Panel (PCR) - Final Mucosa - Nose Microbiology 03/16/21 23:40 Mucosa - Nose Respiratory Panel (PCR) - Final 03/16/21 23:40 Interface Orders SARS-CoV-2 Antigen (Rapid) - Final 03/16/21 23:12 Mucosa - Nasopharyngeal Influenza Types A,B Direct FA (ERIN) - Final D/C Instructions Discharge Diet: 1800 Calorie Control Diet Discharge Activity: Return to Normal Activity Call your doctor if you observe: Fever of 101 or Higher, Shortness of breath, Fainting spells and Chest pain Meaningful Use Info Meaningful Use Diagnoses (Choose all that apply): None applicable Discharge Plan Admission Admit Date/Time: 03/17/21 04:02 Primary Reason for Your Visit: COPD with acute exacerbation Attending Provider: Craig Horner Primary Care Provider: Jeanne Lagunas Discharge Orders/Prescriptions Prescriptions: New prednisone 20 mg tablet 40 mg PO DAILY Qty: 10 RF: 0 doxycycline hyclate [Vibramycin] 100 mg capsule 100 mg PO DAILY Qty: 7 RF: 0 Continued pravastatin 10 mg Tablet 10 mg PO DAILY RF: 0 omeprazole 20 mg capsule,delayed release(DR/EC) 20 mg PO DAILY RF: 0 trazodone 100 mg tablet 200 mg PO QHS RF: 0 aspirin 81 mg tablet,delayed release (DR/EC) 81 mg PO DAILY RF: 0 buspirone 30 mg tablet 30 mg PO BID RF: 0 cetirizine 10 mg tablet 10 mg PO DAILY RF: 0 clopidogrel 75 mg tablet 75 mg PO DAILY RF: 0 calcium carbonate [Calcium 600] 600 mg calcium (1,500 mg) Tablet 600 mg PO DAILY RF: 0 fluoxetine 20 mg capsule 60 mg PO DAILY RF: 0 furosemide 40 mg Tablet 40 mg PO DAILY RF: 0 metformin 500 mg Tablet 500 mg PO BID RF: 0 gabapentin 600 mg Tablet 600 mg PO TID RF: 0 ipratropium-albuterol 0.5 mg-3 mg(2.5 mg base)/3 mL Solution For Nebulization 3 ml INHALATION TID RF: 0 levothyroxine 75 mcg Tablet 75 mcg PO DAILY RF: 0 losartan 25 mg Tablet 25 mg PO DAILY RF: 0 folic acid 1 mg Tablet 1 mg PO DAILY RF: 0 montelukast 10 mg Tablet 10 mg PO QHS RF: 0 albuterol sulfate 90 mcg/actuation HFA aerosol inhaler 2 puff INHALATION Q4H PRN (Reason: Shortness Of Breath Or Wheezing) RF: 0 Dulera 200-5 mcg/actuation HFA aerosol inhaler 2 inh INHALATION BID RF: 0 Incruse Ellipta 62.5 mcg/actuation blister with device 1 inh INHALATION DAILY RF: 0 Referrals / Follow Up: Jeanne Lagunas MD [Primary Care Provider] - In 1 Week Disposition Disposition (needs filled in before D/C Order can be placed): Home, self care Visit Charges Inpatient E&M: 74940 Disch Hosp
--- NOTE | 2021-03-18 09:21 | PCM.DC ---
Discharge Instructions Diet Discharge Diet: 1800 Calorie Control Diet Activity Discharge Activity: Return to Normal Activity Dressing / Incision Call your doctor if you observe: Fever of 101 or Higher, Shortness of breath, Fainting spells and Chest pain Follow Up Care Test Results: Test results from this visit will be discussed in further detail at your follow-up appointment, if applicable. Discharge Plan Admission Admit Date/Time: 03/17/21 04:02 Primary Reason for Your Visit: COPD with acute exacerbation Attending Provider: Craig Horner Primary Care Provider: Jeanne Lagunas Discharge Orders/Prescriptions Prescriptions: New prednisone 20 mg tablet 40 mg PO DAILY Qty: 10 RF: 0 doxycycline hyclate [Vibramycin] 100 mg capsule 100 mg PO DAILY Qty: 7 RF: 0 Continued pravastatin 10 mg Tablet 10 mg PO DAILY RF: 0 omeprazole 20 mg capsule,delayed release(DR/EC) 20 mg PO DAILY RF: 0 trazodone 100 mg tablet 200 mg PO QHS RF: 0 aspirin 81 mg tablet,delayed release (DR/EC) 81 mg PO DAILY RF: 0 buspirone 30 mg tablet 30 mg PO BID RF: 0 cetirizine 10 mg tablet 10 mg PO DAILY RF: 0 clopidogrel 75 mg tablet 75 mg PO DAILY RF: 0 calcium carbonate [Calcium 600] 600 mg calcium (1,500 mg) Tablet 600 mg PO DAILY RF: 0 fluoxetine 20 mg capsule 60 mg PO DAILY RF: 0 furosemide 40 mg Tablet 40 mg PO DAILY RF: 0 metformin 500 mg Tablet 500 mg PO BID RF: 0 gabapentin 600 mg Tablet 600 mg PO TID RF: 0 ipratropium-albuterol 0.5 mg-3 mg(2.5 mg base)/3 mL Solution For Nebulization 3 ml INHALATION TID RF: 0 levothyroxine 75 mcg Tablet 75 mcg PO DAILY RF: 0 losartan 25 mg Tablet 25 mg PO DAILY RF: 0 folic acid 1 mg Tablet 1 mg PO DAILY RF: 0 montelukast 10 mg Tablet 10 mg PO QHS RF: 0 albuterol sulfate 90 mcg/actuation HFA aerosol inhaler 2 puff INHALATION Q4H PRN (Reason: Shortness Of Breath Or Wheezing) RF: 0 Dulera 200-5 mcg/actuation HFA aerosol inhaler 2 inh INHALATION BID RF: 0 Incruse Ellipta 62.5 mcg/actuation blister with device 1 inh INHALATION DAILY RF: 0 Referrals / Follow Up: Jeanne Lagunas MD [Primary Care Provider] - In 1 Week Disposition Disposition (needs filled in before D/C Order can be placed): Home, self care
[2021-03-18 10:04] VITALS: BP 92/76; PULSE 65; RESP 20; TEMP 36.8; O2SAT 96
--- NOTE | 2021-03-18 10:39 | NURSING ---
during discharge instructions, pt informs said nurse that [facility] wont be able to get me my medications until at least a week, they mail them to me. [facility] retial pharmacy is closed, aware. per ER charge nurse, no CM/SW agronomy manager today. Spoke with nursing commissary production supervisor Elias delacruz to ask perforator operator oil well to page whomever was agronomy manager yesterday and see if they can provide assistance.
--- NOTE | 2021-03-18 10:45 | NURSING ---
spoke with pharmacist at [facility] pharmacy- states pt receives her scripts from the mail in pharmacy service. Pharmacist states that they can mail pt her scripts and she would get them in a day or two but they do not offer any delievery service for today.
--- NOTE | 2021-03-18 10:47 | NURSING ---
spoke with female pharmacist at [facility] pt receives her scripts via mail order, states [facility] itself can mail them and she would recieve them in a day or two, inquired if have medication delievery service and pharmacist states no there is nothing like that today, so no, she would not be able to get her medications today. asked for suggestions- she states to try [facility].
--- NOTE | 2021-03-18 10:53 | NURSING ---
pt states her brother is coming to pick her up and would be able to go through drive through and sheepskin pickler her medications at [facility] pharmacy. spoke with pharmacist and updated and states pt scripts can be picked up through the drive through, texted MD and informed to send scripts through to [facility] pharmacy
[2021-03-18 11:38] VITALS: PULSE 68; RESP 18
== END 2021-03-18 13:38 | disposition home or self-care (01) | DRG 140 ==
LOC: ED 03-17 00:55 → MS3 03-17 06:47
PROVIDERS: Internal Medicine; Admitting Provider Hospitalist; Emergency Provider Emergency Medicine; PCP Family Medicine; Visit Provider Internal Medicine
DX: J44.1 Chronic obstructive pulmonary disease with (acute) exacerbation (principal); I11.0 Hypertensive heart disease with heart failure; I50.9 Heart failure, unspecified; J96.11 Chronic respiratory failure with hypoxia; E11.9 Type 2 diabetes mellitus without complications; F32.9 Major depressive disorder, single episode, unspecified; E78.5 Hyperlipidemia, unspecified; Z79.899 Other long term (current) drug therapy; Z79.82 Long term (current) use of aspirin; Z79.02 Long term (current) use of antithrombotics/antiplatelets; Z79.890 Hormone replacement therapy; Z79.84 Long term (current) use of oral hypoglycemic drugs; Z99.81 Dependence on supplemental oxygen; F17.210 Nicotine dependence, cigarettes, uncomplicated; E66.9 Obesity, unspecified; Z68.38 Body mass index [BMI] 38.0-38.9, adult; E03.9 Hypothyroidism, unspecified
CPT/HCPCS: 87635; 96366; 36415; 71045; 80048; 80053; 81001; 82962; 83605; 83880; 84484; 85025; 85610; 85730; 87040; 87426; 87633; 87804; 93005; 94640; 94667; 94668; 96372; 96374; 96375; 96376; 97162; 97165; 99221; 99251; 99285; U0005; A4216; G0378; G0463; U0003

== ENCOUNTER → 2021-05-09 17:08 | Outpatient (CLI) | payer MEDICAID, SELFPAY ==
[2021-03-17 04:32] VITALS: BMI 38.6
--- NOTE | 2021-05-09 17:11 | RAD_ITS ---
STUDY: X-RAY - LEFT FOOT CLINICAL: Female, 51 years old. Injury TECHNIQUE: 3 view(s) of the foot. COMPARISON: None. FINDINGS: Normal talus, calcaneus, and tarsal bones. Normal visualized subtalar, talonavicular, calcaneocuboid, tarsal and tarsometatarsal articulations. Normal metatarsi. There is degenerative arthrosis of the metatarsophalangeal joint of the hallux with a hallux valgus deformity. Normal tibial and fibular sesamoid bones. Normal interphalangeal joint of the great toe. Normal phalanges of the great toe. Normal second through fifth metatarsophalangeal joints. Normal interphalangeal joints and phalanges of the lesser toes. The soft tissue structures are unremarkable. RAD/Foot min 3 Views IMPRESSION: No acute osseous injury. Degenerative changes of the first MTP joint associated with a hallux valgus deformity. Electronically Signed: Lynne Palmer MD at 17:41 EDT Tel , Service support ,
--- NOTE | 2021-05-09 17:15 | RAD_ITS ---
STUDY: X-RAY - LEFT ANKLE REASON FOR EXAM: Female, 51 years old. Injury TECHNIQUE: 3 view(s) of the ankle. COMPARISON: None. FINDINGS: Normal visualized distal tibia and fibula. Normal medial and lateral malleoli. Normal tibiotalar articulation and ankle mortise. Normal visualized talus and calcaneus. The visualized subtalar, talonavicular, calcaneocuboid and tarsal articulations are normal. The soft tissue structures are unremarkable. RAD/Ankle min 3 Views IMPRESSION: No acute osseous injury. Electronically Signed: Lynne Palmer MD at 17:36 EDT Tel , Service support ,
== END ==
PROVIDERS: PCP Family Medicine; Referring Provider Physician Assistant; Visit Provider Physician Assistant
DX: S99.912A Unspecified injury of left ankle, initial encounter (principal); S99.922A Unspecified injury of left foot, initial encounter; X58.XXXA Exposure to other specified factors, initial encounter; Y93.9 Activity, unspecified; Y92.9 Unspecified place or not applicable; Y99.9 Unspecified external cause status
CPT/HCPCS: 73610; 73630

== ENCOUNTER 2021-07-14 01:09 | Observation (INO) | payer MEDICAID, SELFPAY ==
[2021-07-14] VITALS (13 sets, daily range): BP systolic 107–123; BP diastolic 72–91; PULSE 61–100; RESP 12–24; TEMP 36.2–36.8; O2SAT 2–95; BMI 35.6; BMI 36.1
--- NOTE | 2021-07-14 01:37 | EKG12_ITS ---
Test Reason : SOB Blood Pressure : / mmHG Vent. Rate : 097 BPM Atrial Rate : 097 BPM P-R Int : 114 ms QRS Dur : 122 ms QT Int : 382 ms P-R-T Axes : 040 019 016 degrees QTc Int : 485 ms Normal sinus rhythm Indeterminate axis Right bundle branch block Abnormal ECG Confirmed by JASS MELO, BROWN ([id number]), manager editorial MARIA SIFUENTES ([id number]) on 07/15/2021 1:31:19 PM Referred By: GONSALO Confirmed By:BROWN REGAN MD
--- NOTE | 2021-07-14 01:40 | RAD_ITS ---
STUDY: X-RAY CHEST REASON FOR EXAM: Female, 51 years old. cough TECHNIQUE: Cough COMPARISON: 03/16/2021 FINDINGS: Cardiomediastinal silhouette is unremarkable. Costophrenic angles are sharp. Lungs are hyperinflated but clear. The trachea is midline. There is no pneumothorax. The bones are grossly intact. RAD/Chest 1 View (Portable) IMPRESSION: No acute cardiopulmonary process. Electronically Signed: Gab Ann MD at 2:14 EDT Tel , Service support ,
--- NOTE | 2021-07-14 01:47 | EDS_ITS ---
HPI History of Present Illness Chief Complaint: Shortness of Breath Informant: patient Narrative Narrative: 51-year-old female with a history of CHF and COPD on 2 L of home oxygen at baseline presents to the emergency department for shortness of breath. Patient notes that for the past couple days she has had a runny nose and productive cough. She states that symptoms got worse today. She states that EMS told her that she had a fever. She reports that she is only able to take about 5 steps without requiring rest. PFSH PFS Medical History Anxiety Asthma Bipolar disorder Chronic pain Congestive heart failure Congestive heart failure (CHF) Coronary atherosclerosis of [place] coronary vessel Diabetes Dysthymic disorder GERD (gastroesophageal reflux disease) Irregular heart beat Left ankle sprain Obesity On home oxygen therapy Osteopenia Pulmonary embolism Smoker Sprain of left foot Stroke/cerebrovascular accident Tobacco use disorder Home Medications Dulera 2 inh INHALATION BID 03/17/21 [History Last Taken 03/16/21 09:00] Incruse Ellipta 1 inh INHALATION DAILY 03/17/21 [History Last Taken 03/16/21 09:00] albuterol sulfate 2 puff INHALATION Q4H PRN 03/17/21 [History Last Taken 03/16/21 18:00] aspirin 81 mg PO DAILY 03/17/21 [History Last Taken 03/16/21 09:00] buspirone 30 mg PO BID 03/17/21 [History Last Taken 03/16/21 09:00] calcium carbonate [Calcium 600] 600 mg PO DAILY 03/17/21 [History Last Taken 03/16/21 09:00] cetirizine 10 mg PO DAILY 03/17/21 [History Last Taken Unknown] clopidogrel 75 mg PO DAILY 03/17/21 [History Last Taken 03/16/21 09:00] fluoxetine 60 mg PO DAILY 03/17/21 [History Last Taken 03/16/21 09:00] folic acid 1 mg PO DAILY 03/17/21 [History Last Taken 03/16/21 09:00] furosemide 40 mg PO DAILY 03/17/21 [History Last Taken 03/16/21 09:00] gabapentin 600 mg PO TID 03/17/21 [History Last Taken 03/16/21 17:30] ipratropium-albuterol 3 ml INHALATION TID 03/17/21 [History Last Taken 03/16/21 14:00] levothyroxine 75 mcg PO DAILY 03/17/21 [History Last Taken 03/16/21 07:00] losartan 25 mg PO DAILY 03/17/21 [History Last Taken 03/16/21 09:00] metformin 500 mg PO BID 03/17/21 [History Last Taken 03/16/21 09:00] montelukast 10 mg PO QHS 03/17/21 [History Last Taken 03/15/21 21:00] omeprazole 20 mg PO DAILY 03/17/21 [History Last Taken 03/16/21 09:00] pravastatin 10 mg PO DAILY 03/17/21 [History Last Taken Unknown] trazodone 200 mg PO QHS 03/17/21 [History Last Taken 03/15/21 21:00] cyclobenzaprine 10 mg tablet 10 mg PO TID PRN #20 tab 05/09/21 [Rx Last Taken Unknown] clonazepam 0.5 mg PO DAILY PRN 07/14/21 [History Last Taken Unknown] tramadol 50 mg PO Q6H PRN 07/14/21 [History Last Taken Unknown] Allergy/AdvReac Type Severity Reaction Status Date / Time alprazolam [From Xanax] AdvReac makes pt Verified 07/14/21 01:22 violent Surgical History H/O tubal ligation History of cholecystectomy History of cholecystectomy History of salpingo-oophorectomy Social History Smoking Status: Current every day smoker tobacco type: cigarettes substance use type: does not use ROS ROS ED Constitutional Constitutional ED: Denies chills or weight loss Eyes Eyes: Denies change in vision or diplopia ENT ENT ED: Denies ear pain, rhinorrhea or sore throat Cardiovascular Cardiovascular: Denies chest pain, orthopnea, palpitations or racing heartbeat Respiratory/Chest Respiratory/Chest: Reports cough, dyspnea, dyspnea on exertion and sputum; Denies orthopnea Gastrointestinal Gastrointestinal: Denies abdominal pain, diarrhea, nausea or vomiting Genitourinary Genitourinary ED: Denies dysuria, hematuria or urinary frequency Musculoskeletal Musculoskeletal: Denies arthralgias or myalgias Integumentary Denies abscess or rash Neurologic Neurologic: Denies headache(s) or weakness Psychiatric Psychiatric: Denies anxiety, depression, suicidal ideation or suicidal thoughts Endocrine Endocrinology: Denies polydipsia, polyphagia or polyuria Allergic/Immunologic Allergic/Immunologic ED: Denies mouth swelling, tongue swelling or urticaria EXAM Physical Exam Const Vital Signs: 07/14/21 01:10 07/14/21 01:21 07/14/21 02:01 Temperature 97.8 F Temperature Source Temporal Pulse Rate 96 100 Respiratory Rate 12 Respiratory Effort Respiratory Pattern Normal Blood Pressure 123/91 H Blood Pressure Mean 101 Pulse Ox 2 86 Oxygen Delivery Method Nasal Cannula Room Air Oxygen Flow Rate (L/min) 07/14/21 02:08 07/14/21 02:09 Temperature Temperature Source Pulse Rate Respiratory Rate Respiratory Effort Short of Breath Respiratory Pattern Blood Pressure Blood Pressure Mean Pulse Ox 88 Oxygen Delivery Method Nasal Cannula Nasal Cannula Oxygen Flow Rate (L/min) 3 4 Positive well nourished and well developed General Appearance ED: well developed HEENT Reports normocephalic, head/scalp atraumatic, TM's clear and moist mucous membranes atraumatic Tympanic Membrane ED: Yes TM's clear Eyes PERRL and EOMs intact bilaterally Neck no lymphadenopathy, supple and no JVD Resp Auscultation: rhonchi, wheezes and diminished lung sounds Cardio regular rate, regular rhythm and no murmurs GI normal to inspection, nondistended, normoactive bowel sounds and non-tender Palpation: soft Back/Spine no CVA tenderness and normal ROM Extremity normal to inspection General Extremety ED: Negative for edema General Extremity: Negative for edema Neuro oriented x3 and CN's II-XII intact bilaterally Sensorium / Orientation: alert Motor Exam: strength 5/5 throughout Psych mental status grossly normal Mood & Affect: Negative for depressed or tearful Skin no rashes or lesions noted and no wounds MDM MDM MDM Narrative Medical decision making narrative: My interpretation of the chest x-ray is no acute process. White count 8.7. Troponin VII BNP at 29.3. CMP otherwise negative. Covid 19 - lactic acid is 3. Patient received some IV fluids aerosol s and Solu-Medrol. I believe the patient has having an exacerbation of her underlying COPD. She is requiring 3 L at the current time one more than her normal 2 L. With any type of movement greater than 4 steps the patient becomes hypoxemic. I will speak with our hospitalist regarding admission. Lab Data Attestation: I reviewed the patient's lab results. Labs: Laboratory Results - last 24 hr 07/14/21 07/14/21 07/14/21 01:38 01:38 01:38 WBC 8.7 RBC 4.39 Hgb 12.7 Hct 40.1 MCV 91.3 MCH 28.9 MCHC 31.7 L RDW Std Deviation 61.1 H RDW Coeff of Kirstie 18.1 H Plt Count 246 MPV 9.0 Immature Gran % (Auto) 0.300 Neut % (Auto) 72.4 H Lymph % (Auto) 17.1 L [place] % (Auto) 7.3 Eos % (Auto) 2.2 Baso % (Auto) 0.7 Absolute Neuts (auto) 6.3 Absolute Lymphs (auto) 1.49 Nucleated RBC % 0 Sodium Potassium Chloride Carbon Dioxide Anion Gap BUN Creatinine Estim Creat Clear Calc Est GFR (MDRD) Af Amer Est GFR (MDRD) Non-Af BUN/Creatinine Ratio Glucose Lactic Acid Calcium Total Bilirubin AST ALT Alkaline Phosphatase Troponin I High Sens 7 B-Natriuretic Peptide 29.3 Total Protein Albumin Globulin Albumin/Globulin Ratio 07/14/21 07/14/21 01:38 01:42 WBC RBC Hgb Hct MCV MCH MCHC RDW Std Deviation RDW Coeff of Kirstie Plt Count MPV Immature Gran % (Auto) Neut % (Auto) Lymph % (Auto) [place] % (Auto) Eos % (Auto) Baso % (Auto) Absolute Neuts (auto) Absolute Lymphs (auto) Nucleated RBC % Sodium 139 Potassium 3.5 Chloride 102 Carbon Dioxide 30.0 Anion Gap 7 BUN 10 Creatinine 0.80 Estim Creat Clear Calc 73.18 Est GFR (MDRD) Af Amer 97 Est GFR (MDRD) Non-Af 80 BUN/Creatinine Ratio 12.5 Glucose 102 Lactic Acid 3.0 H* Calcium 8.8 Total Bilirubin 0.30 AST 13 L ALT 19 Alkaline Phosphatase 80 Troponin I High Sens B-Natriuretic Peptide Total Protein 7.0 Albumin 3.3 Globulin 3.7 Albumin/Globulin Ratio 0.9 Radiography Diagnostic Testing: Radiology Impression Chest X-Ray 07/14/21 01:40 IMPRESSION: No acute cardiopulmonary process. Electronically Signed: Gab Ann MD at 2:14 EDT Tel , Service support , EKG Initial EKG: Attestation: I personally reviewed and interpreted this EKG as follows: Comments: Sinus rhythm with a ventricular rate of 97 with a right bundle branch block noted Discharge Plan Dx/Rx/DC Orders Clinical Impression: Acute exacerbation of chronic obstructive pulmonary disease Disposition Disposition: Acute Care Hospital [facility]
[2021-07-14 01:57] LABS: Absolute Lymphocyte Count 1.49 X10^3/uL (0.83-4.51); Absolute Neutrophil Count 6.3 X10^3/uL (2.0-7.7); Basophil# 0.06 X10^3/uL; Basophil% 0.7 % (0-1); Eosinophil# 0.19 X10^3/uL; Eosinophils% 2.2 % (0-5); Hematocrit 40.1 % (37-47); Hemoglobin 12.7 g/dL (12.0-15.0); Lymphocyte # 1.49 X10^3/ul (0.83-4.51); Lymphocyte % 17.1 % (19-41); Mean Corp Hgb Conc 31.7 g/dL (32-36); Mean Corpuscular Hgb 28.9 pg (27.0-32.0); Mean Corpuscular Volume 91.3 fL (81-99); Monocyte# 0.64 X10^3/uL; Monocyte% 7.3 % (0-10); NRBC Flagged by Analyzer 0 % (0-5); Neutrophil % 72.4 % (47-70); Platelet Count 246 K/mm3 (150-450); RBC Distribution Width CV 18.1 % (11.6-14.6); RBC Distribution Width SD 61.1 fl (35.1-43.9); Red Blood Count 4.39 M/mm3 (4.2-5.4); White Blood Count 8.7 K/mm3 (4.4-11.0)
[2021-07-14] MEDS: Albuterol 2.5 MG/3 ML VIAL.NEB. INHALATION (02:00)
[2021-07-14] MEDS: Ipratropium/Albuterol Sulfate 3 ML AMPUL.NEB INHALATION ×4 (02:00→14:28)
[2021-07-14] MEDS: MethylPREDNISolone 125 MG/2 ML Vial IV (02:03)
[2021-07-14 02:06] LABS: Troponin-I HS 7 pg/mL (3.0-54.0)
[2021-07-14 02:39] LABS: BNP,B-Type NATRIURETIC PEPTIDE 29.3 pg/mL (0-100)
[2021-07-14 02:56] LABS: ALB/GLOB Ratio 0.9 RATIO (0.9-2.4); AST(SGOT) 13 U/L (15-37); Alanine Aminotransfer ALT/SGPT 19 U/L (13-56); Albumin, Serum 3.3 g/dL (3.2-5.0); Alkaline Phosphatase 80 U/L (45-117); Anion Gap 7 (5-15); BUN 10 mg/dL (7-18); BUN/Creat Ratio 12.5 RATIO (10-20); Calcium,Total 8.8 mg/dL (8.5-10.1); Chloride 102 mmol/L (98-107); EST Glomerular Filtration Rate 80 mL/min (>60); Est Glom Filt Rate - Afr Amer 97 mL/min (>60); Estimated Creatinine Clearance 73.18 ml/min; Globulin 3.7 g/dL (2.2-4.2); Glucose 102 mg/dL (74-106); Potassium 3.5 mmol/L (3.5-5.1); Sodium Level 139 mmol/L (136-145)
--- NOTE | 2021-07-14 03:08 | PCM.HP.STD ---
HPI - General General Date of Admission: 07/14/21 Date of Service: 07/14/21 Chief Complaint: Dyspnea, Hypoxia HPI Narrative The patient is a 51 y/o F w/ PMHx: Anxiety and Depression/Bipolar disorder, Asthma/COPD w/ Chronic Hypoxic Respiratory Failure (2-3L NC), Chronic CHF unclear type, Hx CVA, Tobacco use, GERD, Diabetes mellitus type II, Nonobstructive CAD, Chronic pain syndrome, Hx PE who presents to the [facility] ED on 07/13/21 with history of mild recent congestion, rhinorrhea and productive cough with dyspnea, worse with exertion x2 to 3 days, worse on day of ED presentation with subjective fever prompting ED evaluation. Patient has been COVID vaccinated with Moderna series. The ED included T 97.8, heart rate 96, BP 123/91, respiratory rate 12, noted to be 86% on room air with improvement to 88% on 3 L, CBC with WBC 8.7, hemoglobin 12.7, platelet 246 without marked shift, CMP unremarkable, lactic acid 3, BNP 29.3, high-sensitivity troponin 7, chest x-ray with no acute cardiopulmonary findings, rapid Covid testing negative, blood culture x2 pending per ED. In the ED patient administered normal saline bolus, albuterol and DuoNeb therapies as well as Solu-Medrol 125 mg IV x1. [facility] Medical History Anxiety Asthma Bipolar disorder Chronic pain Congestive heart failure Congestive heart failure (CHF) Coronary atherosclerosis of [place] coronary vessel Diabetes Dysthymic disorder GERD (gastroesophageal reflux disease) Irregular heart beat Left ankle sprain Obesity On home oxygen therapy Osteopenia Pulmonary embolism Smoker Sprain of left foot Stroke/cerebrovascular accident Tobacco use disorder Home Medications Dulera 2 inh INHALATION BID 03/17/21 [History Last Taken 03/16/21 09:00] Incruse Ellipta 1 inh INHALATION DAILY 03/17/21 [History Last Taken 03/16/21 09:00] albuterol sulfate 2 puff INHALATION Q4H PRN 03/17/21 [History Last Taken 03/16/21 18:00] aspirin 81 mg PO DAILY 03/17/21 [History Last Taken 03/16/21 09:00] buspirone 30 mg PO BID 03/17/21 [History Last Taken 03/16/21 09:00] calcium carbonate [Calcium 600] 600 mg PO DAILY 03/17/21 [History Last Taken 03/16/21 09:00] cetirizine 10 mg PO DAILY 03/17/21 [History Last Taken Unknown] clopidogrel 75 mg PO DAILY 03/17/21 [History Last Taken 03/16/21 09:00] fluoxetine 60 mg PO DAILY 03/17/21 [History Last Taken 03/16/21 09:00] folic acid 1 mg PO DAILY 03/17/21 [History Last Taken 03/16/21 09:00] furosemide 40 mg PO DAILY 03/17/21 [History Last Taken 03/16/21 09:00] gabapentin 600 mg PO TID 03/17/21 [History Last Taken 03/16/21 17:30] ipratropium-albuterol 3 ml INHALATION TID 03/17/21 [History Last Taken 03/16/21 14:00] levothyroxine 75 mcg PO DAILY 03/17/21 [History Last Taken 03/16/21 07:00] losartan 25 mg PO DAILY 03/17/21 [History Last Taken 03/16/21 09:00] metformin 500 mg PO BID 03/17/21 [History Last Taken 03/16/21 09:00] montelukast 10 mg PO QHS 03/17/21 [History Last Taken 03/15/21 21:00] omeprazole 20 mg PO DAILY 03/17/21 [History Last Taken 03/16/21 09:00] pravastatin 10 mg PO DAILY 03/17/21 [History Last Taken Unknown] trazodone 200 mg PO QHS 03/17/21 [History Last Taken 03/15/21 21:00] cyclobenzaprine 10 mg tablet 10 mg PO TID PRN #20 tab 05/09/21 [Rx Last Taken Unknown] clonazepam 0.5 mg PO DAILY PRN 07/14/21 [History Last Taken Unknown] tramadol 50 mg PO Q6H PRN 07/14/21 [History Last Taken Unknown] Allergy/AdvReac Type Severity Reaction Status Date / Time alprazolam [From Xanax] AdvReac makes pt Verified 07/14/21 01:22 violent Family History (Updated 07/14/21 @ 06:[address] Arlene Dooley MD) Mother COPD (chronic obstructive pulmonary disease) Father Hypertension Surgical History H/O tubal ligation History of cholecystectomy History of cholecystectomy History of salpingo-oophorectomy Social History (Updated 07/14/21 @ 06:[address] Arlene Dooley MD) household members: none Smoking Status: Current every day smoker tobacco type: cigarettes Smoking packs per day: 0.5 Smoking cigarettes per day: 10.0 alcohol intake: current alcohol intake frequency: a few times a month substance use type: does not use ROS ROS Narrative Admission Review of Systems: CONSTITUTIONAL: No weight loss, fever, chills, + weakness or fatigue. HEENT: Eyes: No visual loss, blurred vision, double vision or yellow sclerae. Ears, Nose, Throat: No hearing loss, sneezing, congestion, runny nose or sore throat. SKIN: No rash or itching, lesions, wounds. CARDIOVASCULAR: No chest pain, chest pressure or chest discomfort, palpitations, edema, orthopnea, syncopal events. RESPIRATORY: + shortness of breath, cough with sputum, wheezing, No hemoptysis. GASTROINTESTINAL: No anorexia, nausea, vomiting or diarrhea, abdominal pain, melena, BRBPR. GENITOURINARY: No dysuria, frequency, urgency or retention. NEUROLOGICAL: No headache, dizziness, syncope, paralysis, ataxia, numbness or tingling in the extremities, focal weakness, change in bowel or bladder control, seizure. MUSCULOSKELETAL: + muscle, back pain, joint pain or stiffness. HEMATOLOGIC: No anemia, bleeding or bruising. LYMPHATICS: No enlarged nodes. No history of splenectomy. PSYCHIATRIC: + history of depression or anxiety. ENDOCRINOLOGIC: No reports of sweating, cold or heat intolerance. No polyuria or polydipsia. ALLERGIES: No history of asthma, hives, eczema or rhinitis. Vital Signs Vital Signs Vital Signs: 07/14/21 01:10 07/14/21 01:21 07/14/21 02:01 Temperature 97.8 F Temperature Source Temporal Pulse Rate 96 100 Respiratory Rate 12 Respiratory Effort Respiratory Pattern Normal Blood Pressure 123/91 H Blood Pressure Mean 101 Pulse Ox 2 86 Oxygen Delivery Method Nasal Cannula Room Air Oxygen Flow Rate (L/min) 07/14/21 02:08 07/14/21 02:09 Temperature Temperature Source Pulse Rate Respiratory Rate Respiratory Effort Short of Breath Respiratory Pattern Blood Pressure Blood Pressure Mean Pulse Ox 88 Oxygen Delivery Method Nasal Cannula Nasal Cannula Oxygen Flow Rate (L/min) 3 4 Weight Weight: 214 lb 4.629 oz Body Mass Index (BMI) 35.6 Physical Exam Narrative Physical Examination: General: Awake, alert, oriented x 3 and cooperative, laying in the ED bed, fatigued, increased work of breathing, accessory muscle usage, moderate distress noted. Skin: Normal color, normal turgor, no icterus, no cyanosis. HEENT: AT/NC, EOMI, PERRLA, dry MM, no carotid bruits or JVD noted. Lungs: Extremely diminished, tight, diffuse wheezing, increased work of breathing with accessory muscle usage, moderate distress noted, no rales or rhonchi. Heart: Mildly tachycardic with regular rhythm; no gallop, rub audible. Abdomen: Soft, obese, NTTP, ND, distant normal BS, no obvious evidence of HSM. Extremities: No cyanosis, clubbing, or edema. Neurological: Patient awake, alert, oriented as noted, cognitive function intact; pupils equally reactive to light and accommodation, cranial nerves II-XII grossly normal, moving all 4 extremities, no focal deficits, strength severely global decrease secondary to acute presentation. Psychiatric: Affect appears fatigued, evidence of respiratory moderate distress, no acute evidence of depressive or anxiety feelings. Results Lab / Micro Data Result Diagrams: 07/14/21 01:38 07/14/21 01:38 Labs: Laboratory Results - last 24 hr 07/14/21 01:38: WBC 8.7, RBC 4.39, Hgb 12.7, Hct 40.1, MCV 91.3, MCH 28.9, MCHC 31.7 L, RDW Std Deviation 61.1 H, RDW Coeff of Kirstie 18.1 H, Plt Count 246, MPV 9.0, Immature Gran % (Auto) 0.300, Neut % (Auto) 72.4 H, Lymph % (Auto) 17.1 L, [place] % (Auto) 7.3, Eos % (Auto) 2.2, Baso % (Auto) 0.7, Absolute Neuts (auto) 6.3, Absolute Lymphs (auto) 1.49, Nucleated RBC % 0 07/14/21 01:38: Troponin I High Sens 7 07/14/21 01:38: B-Natriuretic Peptide 29.3 07/14/21 01:38: Sodium 139, Potassium 3.5, Chloride 102, Carbon Dioxide 30.0, Anion Gap 7, BUN 10, Creatinine 0.80, Estim Creat Clear Calc 73.18, Est GFR (MDRD) Af Amer 97, Est GFR (MDRD) Non-Af 80, BUN/Creatinine Ratio 12.5, Glucose 102, Calcium 8.8, Total Bilirubin 0.30, AST 13 L, ALT 19, Alkaline Phosphatase 80, Total Protein 7.0, Albumin 3.3, Globulin 3.7, Albumin/Globulin Ratio 0.9 07/14/21 01:42: Lactic Acid 3.0 H* Micro: Microbiology 07/14/21 01:54 Nasal Secretion SARS-CoV-2 Antigen (Rapid) - Final Radiology Impression Chest X-Ray 07/14/21 01:40 IMPRESSION: No acute cardiopulmonary process. Electronically Signed: Gab Ann MD at 2:14 EDT Tel , Service support , Assessment & Plan Assessment/Plan (1) Acute exacerbation of chronic obstructive pulmonary disease: PLAN: The patient is a 51 y/o F w/ PMHx: Anxiety and Depression/Bipolar disorder, Asthma/COPD w/ Chronic Hypoxic Respiratory Failure (2-3L NC), Chronic CHF unclear type, Hx CVA, Tobacco use, GERD, Diabetes mellitus type II, Nonobstructive CAD, Chronic pain syndrome, Hx PE who presents to the [facility] ED on 07/13/21 with history of mild recent congestion, rhinorrhea and productive cough with dyspnea, worse with exertion x2 to 3 days, worse on day of ED presentation with subjective fever prompting ED evaluation. 1. Acute on Chronic Hypoxic Respiratory Failure secondary to Acute on chronic COPD exacerbation: Will admit to MS telemetry, given presentation will obtain ABG and place patient on BIPAP, continue ATC duonebs, PRN albuterol, IV methylprednisolone, HOB, IS parameters, defer antibiotic therapy given afebrile upon current ED presentation, no WBC elevation or left shift pending procalcitonin, will request sputum culture as well as respiratory viral panel and alter interventions pending results. 2. Lactic acidosis: Likely secondary to #1 with hypoxemia, administered 1 L bolus in the ED, will continue judicious hydration given unclear CHF history, trend lactic acid per facility protocol. 3. Chronic CHF, unclear type: BNP normal, high-sensitivity troponin 7, will continue patient home aspirin, Plavix, Lasix, losartan, statin therapy, not on beta-donna therapy likely secondary to underlying pulmonary disease, BNP normal, CXR without acute findings. No ECHO noted in system. 4. Hypertension: Continue home regimen including losartan, Lasix with hold parameters as needed, PRN hydralazine. 5. Hyperlipidemia: We will continue patient on statin therapy. 6. Nonobstructive CAD: We will continue patient home aspirin, statin, losartan, not on beta-donna therapy likely secondary to underlying pulmonary disease. 7. History CVA: We will continue patient home aspirin, Plavix, statin, hypertensive regimen. 8. Tobacco Abuse: Encouraged cessation, inpatient consultation per RT, NR if desired. 9. Diabetes mellitus type II: Hold oral home regimen, ADA diet, accu checks w/ ISS. 10. Anxiety and depression: We will continue patient home buspirone, clonazepam, fluoxetine and trazodone regimen. 11. Obesity: Weight loss and lifestyle changes encouraged. 12. Hypothyroidism: Continue home synthroid regimen. 13. History of PE: We will continue chemoprophylaxis as noted below. 14. GERD: We will continue patient home PPI. 15. DVT prophylaxis: SCDs, Lovenox. 16. CODE status: Patient DARREL is her brother Gene and living will is currently in place. Discussed CODE status at length including difference between FULL code, DNR-CCA and DNR-CC status. Following discussions about the differences in these status, requested Full Code status. Amenable to BIPAP usage. Advanced Care Planning Face to Face Time: 16 minutes. Charges/Coding Visit Charges Inpatient E&M: 75672 Init Hosp L3 Procedures Hospitalists Procedures: 41534 Advncd Care Plan 30 Min
[2021-07-14 04:22] LABS: Procalcitonin < 0.04 ng/mL (0.00-0.09)
[2021-07-14 05:52] LABS: Reflex Lactate? Y
[2021-07-14 06:15] LABS: Allen Test Positive; Base Excess 7 mmol/L (-2 to +2); Blood Gas Specimen Type ART; O2 Delivery Device Cannula; PO2 137 mmHG (75-100); SITE R Radial; SO2 99 % (95-99); Total Carbon Dioxide 34 mmol/L; pCO2 57.7 mmHg (35-45); pH 7.35 (7.35-7.45)
[2021-07-14] MEDS: Gabapentin 600 MG Tablet PO ×2 (06:26→14:05)
[2021-07-14 06:31] LABS: Bedside Glucose 170 mg/dL (70-110)
[2021-07-14] MEDS: Insulin Lispro 100 UNIT/ML INSULN.PEN SC ×3 (06:31→15:59)
[2021-07-14 06:54] LABS: Absolute Lymphocyte Count 0.47 X10^3/uL (0.83-4.51); Absolute Neutrophil Count 6.9 X10^3/uL (2.0-7.7); Basophil# 0.02 X10^3/uL; Basophil% 0.3 % (0-1); Eosinophil# 0.01 X10^3/uL; Eosinophils% 0.1 % (0-5); Hematocrit 39.8 % (37-47); Hemoglobin 12.6 g/dL (12.0-15.0); Lymphocyte # 0.47 X10^3/ul (0.83-4.51); Lymphocyte % 6.2 % (19-41); Mean Corp Hgb Conc 31.7 g/dL (32-36); Mean Corpuscular Volume 91.7 fL (81-99); Monocyte# 0.11 X10^3/uL; Monocyte% 1.5 % (0-10); NRBC Flagged by Analyzer 0 % (0-5); Neutrophil # 6.92 X10^3/uL (2.7-7.7); Neutrophil % 91.5 % (47-70); POSITIVE DIFFERENTIAL YES; Platelet Count 223 K/mm3 (150-450); RBC Distribution Width CV 17.9 % (11.6-14.6); RBC Distribution Width SD 60.9 fl (35.1-43.9); Red Blood Count 4.34 M/mm3 (4.2-5.4); White Blood Count 7.6 K/mm3 (4.4-11.0)
[2021-07-14 06:56] LABS: Differential Indicated SCAN CRITERIA MET
[2021-07-14 07:16] LABS: Differential Comment D
[2021-07-14 07:18] LABS: Lactic Acid 1.7 mmol/L (0.4-1.9)
[2021-07-14 07:26] LABS: ALB/GLOB Ratio 0.8 RATIO (0.9-2.4); AST(SGOT) 10 U/L (15-37); Alanine Aminotransfer ALT/SGPT 18 U/L (13-56); Albumin, Serum 3.1 g/dL (3.2-5.0); Alkaline Phosphatase 80 U/L (45-117); Anion Gap 5 (5-15); BUN 13 mg/dL (7-18); BUN/Creat Ratio 16.3 RATIO (10-20); Calcium,Total 8.4 mg/dL (8.5-10.1); Chloride 98 mmol/L (98-107); EST Glomerular Filtration Rate 80 mL/min (>60); Est Glom Filt Rate - Afr Amer 97 mL/min (>60); Estimated Creatinine Clearance 70.23 ml/min; Globulin 3.7 g/dL (2.2-4.2); Glucose 154 mg/dL (74-106); Potassium 4.2 mmol/L (3.5-5.1); Protein, Total 6.8 g/dL (6.4-8.2); Sodium Level 136 mmol/L (136-145)
[2021-07-14] MEDS: busPIRone 15 MG TABLET 30 MG PO (08:55)
[2021-07-14] MEDS: Acetaminophen 325 MG Tablet 650 MG PO (08:55)
[2021-07-14] MEDS: Loratadine 10 MG Tablet PO (08:55)
[2021-07-14] MEDS: Aspirin E.C. 81 MG Tablet PO (08:56)
[2021-07-14] MEDS: Clopidogrel Bisulfate 75 MG Tablet PO (08:56)
[2021-07-14] MEDS: FLUoxetine 20 MG Capsule 60 MG PO (08:56)
[2021-07-14] MEDS: Folic Acid 1 MG Tablet PO (08:56)
[2021-07-14] MEDS: Enoxaparin 40 MG/0.4 ML Syringe SC (08:57)
[2021-07-14] MEDS: Losartan Potassium 25 MG Tablet PO (08:57)
[2021-07-14] MEDS: Furosemide 40 MG Tablet PO (08:57)
[2021-07-14] MEDS: Pantoprazole Sodium 20 MG Tablet PO (08:58)
[2021-07-14] MEDS: Levothyroxine 75 MCG Tablet PO (08:58)
[2021-07-14 11:11] LABS: Bedside Glucose 195 mg/dL (70-110)
--- NOTE | 2021-07-14 13:54 | PCM.DC ---
Discharge Instructions Diet Discharge Diet: 1800 Calorie Control Diet Activity Discharge Activity: Return to Normal Activity Weight Bearing Status: Full weight bearing Follow Up Care Test Results: Test results from this visit will be discussed in further detail at your follow-up appointment, if applicable. Discharge Plan Admission Admit Date/Time: 07/14/21 03:20 Primary Reason for Your Visit: Rhino virus infection Attending Provider: Juve Kwong Primary Care Provider: Jeanne Lagunas Discharge Orders/Prescriptions Prescriptions: New prednisone 20 mg tablet 40 mg PO DAILY Qty: 14 RF: 0 azithromycin [Zithromax] 500 mg tablet 500 mg PO DAILY 3 Days Qty: 3 RF: 0 Continued cyclobenzaprine 10 mg tablet 10 mg PO TID PRN (Reason: muscle spasm) Qty: 20 RF: 0 pravastatin 10 mg Tablet 10 mg PO DAILY RF: 0 omeprazole 20 mg capsule,delayed release(DR/EC) 20 mg PO DAILY RF: 0 trazodone 100 mg tablet 200 mg PO QHS RF: 0 aspirin 81 mg tablet,delayed release (DR/EC) 81 mg PO DAILY RF: 0 buspirone 30 mg tablet 30 mg PO BID RF: 0 cetirizine 10 mg tablet 10 mg PO DAILY RF: 0 clopidogrel 75 mg tablet 75 mg PO DAILY RF: 0 calcium carbonate [Calcium 600] 600 mg calcium (1,500 mg) Tablet 600 mg PO DAILY RF: 0 fluoxetine 20 mg capsule 60 mg PO DAILY RF: 0 furosemide 40 mg Tablet 40 mg PO DAILY RF: 0 metformin 500 mg Tablet 500 mg PO BID RF: 0 gabapentin 600 mg Tablet 600 mg PO TID RF: 0 ipratropium-albuterol 0.5 mg-3 mg(2.5 mg base)/3 mL Solution For Nebulization 3 ml INHALATION TID RF: 0 levothyroxine 75 mcg Tablet 75 mcg PO DAILY RF: 0 losartan 25 mg Tablet 25 mg PO DAILY RF: 0 folic acid 1 mg Tablet 1 mg PO DAILY RF: 0 montelukast 10 mg Tablet 10 mg PO QHS RF: 0 albuterol sulfate 90 mcg/actuation HFA aerosol inhaler 2 puff INHALATION Q4H PRN (Reason: Shortness Of Breath Or Wheezing) RF: 0 Dulera 200-5 mcg/actuation HFA aerosol inhaler 2 inh INHALATION BID RF: 0 Incruse Ellipta 62.5 mcg/actuation blister with device 1 inh INHALATION DAILY RF: 0 clonazepam 0.5 mg Tablet 0.5 mg PO DAILY PRN (Reason: Anxiety) RF: 0 tramadol 50 mg Tablet 50 mg PO Q6H PRN (Reason: Pain) RF: 0 Referrals / Follow Up: Jeanne Lagunas MD [Primary Care Provider] - Within 2 Weeks Disposition Disposition (needs filled in before D/C Order can be placed): Home, Self Care
[2021-07-14] MEDS: 0.9% Saline Lock 10 ML Syringe IV (14:05)
[2021-07-14 16:07] LABS: Bedside Glucose 172 mg/dL (70-110)
--- NOTE | 2021-07-14 18:52 | DS.PCM_ITS ---
Providers Date of Admission: 07/14/21 Date of Discharge: 07/14/21 Primary Care Physician: Dr. Jeanne Lagunas MD Reason For Visit: ACUTE COPD EXACERBATION Diagnosis Discharge Diagnosis (1) Acute exacerbation of chronic obstructive pulmonary disease: Status: Chronic Code(s): J44.1 - Chronic obstructive pulmonary disease with (acute) exacerbation Plan: 1. Rhinovirus tracheobronchitis with reactive airway disease #2 chronic obstructive pulmonary disease #3 acute on chronic hypoxic respiratory failure #4 essential hypertension #5 type 2 diabetes #6 hyperlipidemia #7 chronic depression Medications at Discharge Home Medications Dulera 2 inh INHALATION BID 03/17/21 Incruse Ellipta 1 inh INHALATION DAILY 03/17/21 albuterol sulfate 2 puff INHALATION Q4H PRN 03/17/21 aspirin 81 mg PO DAILY 03/17/21 buspirone 30 mg PO BID 03/17/21 calcium carbonate [Calcium 600] 600 mg PO DAILY 03/17/21 cetirizine 10 mg PO DAILY 03/17/21 clopidogrel 75 mg PO DAILY 03/17/21 fluoxetine 60 mg PO DAILY 03/17/21 folic acid 1 mg PO DAILY 03/17/21 furosemide 40 mg PO DAILY 03/17/21 gabapentin 600 mg PO TID 03/17/21 ipratropium-albuterol 3 ml INHALATION TID 03/17/21 levothyroxine 75 mcg PO DAILY 03/17/21 losartan 25 mg PO DAILY 03/17/21 metformin 500 mg PO BID 03/17/21 montelukast 10 mg PO QHS 03/17/21 omeprazole 20 mg PO DAILY 03/17/21 pravastatin 10 mg PO DAILY 03/17/21 trazodone 200 mg PO QHS 03/17/21 cyclobenzaprine 10 mg tablet 10 mg PO TID PRN #20 tab 05/09/21 azithromycin [Zithromax] 500 mg PO DAILY 3 Days #3 tab 07/14/21 clonazepam 0.5 mg PO DAILY PRN 07/14/21 prednisone 40 mg PO DAILY #14 tab 07/14/21 tramadol 50 mg PO Q6H PRN 07/14/21 Hospital Course Operations None Procedures None Summary of Care Provided Minutes Spent on Discharge: 31 Hospital Course: This 51-year-old white female was seen in the emergency room at [facility] with chief complaint of shortness of breath and cough productive of green sputum. Patient is on chronic oxygen at home at 3 L/min. Evaluation in the emergency room revealed the patient to require oxygen at 4 L/min, chest x-ray showed no acute cardiopulmonary process, patient's CBC was unremarkable. Patient was given IV Solu-Medrol and aerosol treatments, she was admitted to [place] [id number], her respiratory panel resulted in being positive for rhinovirus. Patient was seen and examined in the late morning of 07/14/2021, she was on 3 L of oxygen and seemed comfortable at rest. On examination, patient had no expiratory wheezing. She was examined on 07/14/2021 by myself: On examination she appeared in good health and spirits, she does not appear to be in any distress. Vital signs as documented. Skin warm and dry and without overt rashes. Neck without JVD, thyroid appears normal, trachea is midline, neck is supple. Lungs clear, normal air movement was noted. Heart exam notable for regular rhythm, normal sounds and absence of murmurs, rubs or gallops. Abdomen unremarkable and without evidence of organomegaly, masses, or abdominal aortic enlargement, bowel sounds are pres ent in all 4 quadrants, no abdominal tenderness was noted. Extremities nonedematous, no cyanosis was noted, no clubbing was noted. Neuro: Cranial nerves II through XII are grossly intact, no focal motor deficits were noted, sensation to light touch and pinprick is intact, motor exam 5/5 throughout. Psych: Patient is alert and oriented x3, she does not appear anxious or depressed, she does not appear agitated. Patient appears stable for discharge home on 07/14/2021, she only required 2 L of oxygen at rest and on ambulation. Weight / BMI Weight Weight: 95.4 kg Body Mass Index (BMI) 36.1 ABG / Lab / Microbiology Data Result Diagrams: 07/14/21 06:42 07/14/21 06:42 Laboratory: Laboratory Results - last 24 hr 07/14/21 01:38: WBC 8.7, RBC 4.39, Hgb 12.7, Hct 40.1, MCV 91.3, MCH 28.9, MCHC 31.7 L, RDW Std Deviation 61.1 H, RDW Coeff of Kirstie 18.1 H, Plt Count 246, MPV 9.0, Immature Gran % (Auto) 0.300, Neut % (Auto) 72.4 H, Lymph % (Auto) 17.1 L, Coleman % (Auto) 7.3, Eos % (Auto) 2.2, Baso % (Auto) 0.7, Absolute Neuts (auto) 6.3, Absolute Lymphs (auto) 1.49, Nucleated RBC % 0 07/14/21 01:38: Troponin I High Sens 7 07/14/21 01:38: B-Natriuretic Peptide 29.3 07/14/21 01:38: Sodium 139, Potassium 3.5, Chloride 102, Carbon Dioxide 30.0, Anion Gap 7, BUN 10, Creatinine 0.80, Estim Creat Clear Calc 73.18, Est GFR (MDRD) Af Amer 97, Est GFR (MDRD) Non-Af 80, BUN/Creatinine Ratio 12.5, Glucose 102, Calcium 8.8, Total Bilirubin 0.30, AST 13 L, ALT 19, Alkaline Phosphatase 80, Total Protein 7.0, Albumin 3.3, Globulin 3.7, Albumin/Globulin Ratio 0.9 07/14/21 01:38: Procalcitonin < 0.04 07/14/21 01:42: Lactic Acid 3.0 H* 07/14/21 06:28: POC Glucose 170 H 07/14/21 06:42: WBC 7.6, RBC 4.34, Hgb 12.6, Hct 39.8, MCV 91.7, MCH 29.0, MCHC 31.7 L, RDW Std Deviation 60.9 H, RDW Coeff of Kirstie 17.9 H, Plt Count 223, MPV 9.0, Immature Gran % (Auto) 0.400, Neut % (Auto) 91.5 H, Lymph % (Auto) 6.2 L, Coleman % (Auto) 1.5, Eos % (Auto) 0.1, Baso % (Auto) 0.3, Absolute Neuts (auto) 6.9, Absolute Lymphs (auto) 0.47 L, Nucleated RBC % 0, Differential Comment D 07/14/21 06:42: Sodium 136, Potassium 4.2, Chloride 98, Carbon Dioxide 33.0 H, Anion Gap 5, BUN 13, Creatinine 0.80, Estim Creat Clear Calc 70.23, Est GFR (MDRD) Af Amer 97, Est GFR (MDRD) Non-Af 80, BUN/Creatinine Ratio 16.3, Glucose 154 H, Calcium 8.4 L, Total Bilirubin 0.30, AST 10 L, ALT 18, Alkaline Phosphatase 80, Total Protein 6.8, Albumin 3.1 L, Globulin 3.7, Albumin/Globulin Ratio 0.8 L 07/14/21 06:42: Lactic Acid 1.7 07/14/21 11:03: POC Glucose 195 H 07/14/21 15:58: POC Glucose 172 H Microbiology: Microbiology 07/14/21 04:30 Mucosa - Nasopharyngeal Respiratory Panel (PCR) - Final Rhinovirus 07/14/21 04:35 Urine, Random Legionella Antigen - Final 07/14/21 04:35 Urine, Random Streptococcus pneumoniae Antigen (M - Final 07/14/21 01:54 Nasal Secretion SARS-CoV-2 Antigen (Rapid) - Final ABG: ABG 07/14/21 06:03 Specimen Type ART Sample Site R Radial pH 7.35 Bicarbonate Actual 32.0 H Total CO2 34 Base Excess 7 H O2 Saturation 99 ABG pCO2 57.7 H ABG pO2 137 H Rafael Test Positive O2 Delivery Device Cannula Liter Flow 4.0 Radiography Diagnostic Testing: Radiology Impression Chest X-Ray 07/14/21 01:40 IMPRESSION: No acute cardiopulmonary process. Electronically Signed: Gab Ann MD at 2:14 EDT Tel , Service support , D/C Instructions Discharge Diet: 1800 Calorie Control Diet Weight Bearing Status: Full weight bearing Meaningful Use Info Meaningful Use Diagnoses (Choose all that apply): None applicable Discharge Plan Admission Admit Date/Time: 07/14/21 03:20 Primary Reason for Your Visit: Rhino virus infection Attending Provider: Juve Kwong Primary Care Provider: Jeanne Lagunas Discharge Orders/Prescriptions Prescriptions: New prednisone 20 mg tablet 40 mg PO DAILY Qty: 14 RF: 0 azithromycin [Zithromax] 500 mg tablet 500 mg PO DAILY 3 Days Qty: 3 RF: 0 Continued cyclobenzaprine 10 mg tablet 10 mg PO TID PRN (Reason: muscle spasm) Qty: 20 RF: 0 pravastatin 10 mg Tablet 10 mg PO DAILY RF: 0 omeprazole 20 mg capsule,delayed release(DR/EC) 20 mg PO DAILY RF: 0 trazodone 100 mg tablet 200 mg PO QHS RF: 0 aspirin 81 mg tablet,delayed release (DR/EC) 81 mg PO DAILY RF: 0 buspirone 30 mg tablet 30 mg PO BID RF: 0 cetirizine 10 mg tablet 10 mg PO DAILY RF: 0 clopidogrel 75 mg tablet 75 mg PO DAILY RF: 0 calcium carbonate [Calcium 600] 600 mg calcium (1,500 mg) Tablet 600 mg PO DAILY RF: 0 fluoxetine 20 mg capsule 60 mg PO DAILY RF: 0 furosemide 40 mg Tablet 40 mg PO DAILY RF: 0 metformin 500 mg Tablet 500 mg PO BID RF: 0 gabapentin 600 mg Tablet 600 mg PO TID RF: 0 ipratropium-albuterol 0.5 mg-3 mg(2.5 mg base)/3 mL Solution For Nebulization 3 ml INHALATION TID RF: 0 levothyroxine 75 mcg Tablet 75 mcg PO DAILY RF: 0 losartan 25 mg Tablet 25 mg PO DAILY RF: 0 folic acid 1 mg Tablet 1 mg PO DAILY RF: 0 montelukast 10 mg Tablet 10 mg PO QHS RF: 0 albuterol sulfate 90 mcg/actuation HFA aerosol inhaler 2 puff INHALATION Q4H PRN (Reason: Shortness Of Breath Or Wheezing) RF: 0 Dulera 200-5 mcg/actuation HFA aerosol inhaler 2 inh INHALATION BID RF: 0 Incruse Ellipta 62.5 mcg/actuation blister with device 1 inh INHALATION DAILY RF: 0 clonazepam 0.5 mg Tablet 0.5 mg PO DAILY PRN (Reason: Anxiety) RF: 0 tramadol 50 mg Tablet 50 mg PO Q6H PRN (Reason: Pain) RF: 0 Referrals / Follow Up: Jeanne Lagunas MD [Primary Care Provider] - Within 2 Weeks Disposition Disposition (needs filled in before D/C Order can be placed): Home, Self Care Charges/Coding Visit Charges Inpatient E&M: [id number] [facility] Hosp
--- NOTE | 2021-07-15 14:39 | CASEMGMT ---
KYLEIGH BERNSTEIN Discharge Follow-up Phone Call: JIN: Marquita Strata: 3 Call Date: 07/15/21 Discharge Date: 07/14/21 Time of Call: 1435 Duration: 3 min Admitting Diagnosis: COPD exacerbation KYLEIGH BERNSTEIN completed follow-up phone call after recent hospitalization. Patient states she is doing better. Patient states she is wearing her oxygen and breathing ok. Patient was able to fill prescriptions without any issues. Patient aware to schedule follow-up appts. Patient had no further questions or concerns.
== END 2021-07-14 17:03 | disposition home or self-care (01) | DRG 140 ==
LOC: ED 03:07 → MS2 07:31
PROVIDERS: Admitting Provider Family Medicine; Emergency Provider Emergency Medicine; PCP Family Medicine; Visit Provider Internal Medicine
DX: J44.1 Chronic obstructive pulmonary disease with (acute) exacerbation (principal); J20.6 Acute bronchitis due to rhinovirus; J44.0 Chronic obstructive pulmonary disease with (acute) lower respiratory infection; J96.21 Acute and chronic respiratory failure with hypoxia; I11.0 Hypertensive heart disease with heart failure; I50.9 Heart failure, unspecified; Z20.822 Contact with and (suspected) exposure to COVID-19; Z23 Encounter for immunization; I25.10 Atherosclerotic heart disease of native coronary artery without angina pectoris; E11.9 Type 2 diabetes mellitus without complications; E78.5 Hyperlipidemia, unspecified; E03.9 Hypothyroidism, unspecified; K21.9 Gastro-esophageal reflux disease without esophagitis; G89.4 Chronic pain syndrome; F34.1 Dysthymic disorder; F31.9 Bipolar disorder, unspecified; F41.9 Anxiety disorder, unspecified; F17.210 Nicotine dependence, cigarettes, uncomplicated; E66.9 Obesity, unspecified; Z68.36 Body mass index [BMI] 36.0-36.9, adult; Z99.81 Dependence on supplemental oxygen; Z79.02 Long term (current) use of antithrombotics/antiplatelets; Z79.84 Long term (current) use of oral hypoglycemic drugs; Z79.82 Long term (current) use of aspirin; Z79.890 Hormone replacement therapy; Z79.899 Other long term (current) drug therapy; Z86.711 Personal history of pulmonary embolism; Z86.73 Personal history of transient ischemic attack (TIA), and cerebral infarction without residual deficits
CPT/HCPCS: 36415; 36600; 71045; 80053; 82803; 82962; 83605; 83880; 84145; 84484; 85025; 87040; 87149; 87426; 87449; 87633; 93005; 94640; 96372; 96374; 96376; 97802; 99218; 99251; 99285; 99406; 90686; A4216; G0378; G0463

== ENCOUNTER 2021-11-17 18:07 | Inpatient (IN) | payer MEDICAID, SELFPAY ==
[2021-11-17] VITALS (8 sets, daily range): BP systolic 121–202; BP diastolic 91–163; PULSE 84–104; RESP 18–23; TEMP 36.2–37.9; O2SAT 92–947; BMI 38.5; BMI 33.5
--- NOTE | 2021-11-17 18:20 | EKG12_ITS ---
Test Reason : UNRESPONSIVE Blood Pressure : / mmHG Vent. Rate : 090 BPM Atrial Rate : 090 BPM P-R Int : 130 ms QRS Dur : 120 ms QT Int : 394 ms P-R-T Axes : 076 013 029 degrees QTc Int : 481 ms Normal sinus rhythm Low voltage QRS Right bundle branch block Abnormal ECG Confirmed by ELIZABETH MELO, CITLALY ([id number]), photographic editor MARIA SIFUENTES ([id number]) on 11/18/2021 11:04:30 AM Referred By: DC Confirmed By:CITLALY JOHNSON MD
--- NOTE | 2021-11-17 18:27 | EX.ED.DYSGE1 ---
HPI History of Present Illness Chief Complaint: Unresponsive Informant: patient and EMS Narrative Narrative: Patient presents via EMS after unresponsive episode. EMS notes patient unresponsive with low O2 sats on their arrival. After 8 mg of Narcan patient became alert and more combative. On arrival to the emergency room she is on a nonrebreather. With sternal rub she will open her eyes and answer questions. She denies taking any drugs today. She denies taking any medications other than what she is prescribed. [facility] Medical History Anxiety Asthma Bipolar disorder Chronic pain Congestive heart failure (CHF) COPD (chronic obstructive pulmonary disease) Coronary atherosclerosis of [place] coronary vessel Diabetes Dysthymic disorder GERD (gastroesophageal reflux disease) Irregular heart beat Obesity On home oxygen therapy Osteopenia Pulmonary embolism Smoker Sprain of left foot Stroke/cerebrovascular accident Tobacco use disorder Home Medications Dulera 2 inh INHALATION BID 03/17/21 [History Last Taken 03/16/21 09:00] Incruse Ellipta 1 inh INHALATION DAILY 03/17/21 [History Last Taken 03/16/21 09:00] albuterol sulfate 2 puff INHALATION Q4H PRN 03/17/21 [History Last Taken 03/16/21 18:00] aspirin 81 mg PO DAILY 03/17/21 [History Last Taken 03/16/21 09:00] buspirone 30 mg PO BID 03/17/21 [History Last Taken 03/16/21 09:00] calcium carbonate [Calcium 600] 600 mg PO DAILY 03/17/21 [History Last Taken 03/16/21 09:00] cetirizine 10 mg PO DAILY 03/17/21 [History Last Taken Unknown] clopidogrel 75 mg PO DAILY 03/17/21 [History Last Taken 03/16/21 09:00] fluoxetine 60 mg PO DAILY 03/17/21 [History Last Taken 03/16/21 09:00] folic acid 1 mg PO DAILY 03/17/21 [History Last Taken 03/16/21 09:00] furosemide 40 mg PO DAILY 03/17/21 [History Last Taken 03/16/21 09:00] gabapentin 600 mg PO TID 03/17/21 [History Last Taken 03/16/21 17:30] ipratropium-albuterol 3 ml INHALATION TID 03/17/21 [History Last Taken 03/16/21 14:00] levothyroxine 75 mcg PO DAILY 03/17/21 [History Last Taken 03/16/21 07:00] losartan 25 mg PO DAILY 03/17/21 [History Last Taken 03/16/21 09:00] metformin 500 mg PO BID 03/17/21 [History Last Taken 03/16/21 09:00] montelukast 10 mg PO QHS 03/17/21 [History Last Taken 03/15/21 21:00] omeprazole 20 mg PO DAILY 03/17/21 [History Last Taken 03/16/21 09:00] pravastatin 10 mg PO DAILY 03/17/21 [History Last Taken Unknown] trazodone 200 mg PO QHS 03/17/21 [History Last Taken 03/15/21 21:00] cyclobenzaprine 10 mg tablet 10 mg PO TID PRN #20 tab 05/09/21 [Rx Last Taken Unknown] clonazepam 0.5 mg PO DAILY PRN 07/14/21 [History Last Taken Unknown] prednisone 40 mg PO DAILY #14 tab 07/14/21 [Rx Last Taken Unknown] tramadol 50 mg PO Q6H PRN 07/14/21 [History Last Taken Unknown] Allergy/AdvReac Type Severity Reaction Status Date / Time alprazolam [From Xanax] AdvReac makes pt Verified 07/14/21 01:22 violent Family History Mother COPD (chronic obstructive pulmonary disease) Father Hypertension Surgical History H/O tubal ligation History of cholecystectomy History of salpingo-oophorectomy Social History household members: none Smoking Status: Current every day smoker tobacco type: cigarettes alcohol intake: current alcohol intake frequency: a few times a month substance use type: does not use ROS ROS ED Review of Systems ROS Unobtainable: due to mental status Constitutional Constitutional ED: Denies chills or fever(s) Eyes Eyes: Denies change in vision ENT ENT ED: Denies sore throat Cardiovascular Cardiovascular: Reports chest pain Respiratory/Chest Respiratory/Chest: Reports dyspnea; Denies cough Gastrointestinal Gastrointestinal: Denies abdominal pain, diarrhea, nausea or vomiting Integumentary Denies rash Neurologic Neurologic: Denies headache(s) or weakness Allergic/Immunologic Allergic/Immunologic ED: Denies urticaria EXAM Physical Exam Const Vital Signs: 11/17/21 18:10 11/17/21 18:17 11/17/21 18:57 Temperature 97.7 F L 97.7 F L Temperature Source Temporal Temporal Pulse Rate 91 104 H 92 Respiratory Rate 18 23 H 20 H Respiratory Pattern Tachypnea Blood Pressure 202/163 H 202/163 H Blood Pressure Mean 176 176 Pulse Ox 93 96 Oxygen Delivery Method Non-Rebreather Non-Rebreather Oxygen Flow Rate (L/min) 11/17/21 19:34 Temperature Temperature Source Pulse Rate Respiratory Rate Respiratory Pattern Blood Pressure Blood Pressure Mean Pulse Ox 92 Oxygen Delivery Method High Flow Oxygen Flow Rate (L/min) 8 Positive well nourished and well developed General Appearance ED: well developed HEENT Reports moist mucous membranes Eyes PERRL and EOMs intact bilaterally Neck supple Chest Wall inspection of chest normal and palpation of chest normal Resp Resp Narrative: Expiratory wheezes noted throughout. Cardio Rate: tachycardic GI non-tender Auscultation: hypoactive bowel sounds Palpation: soft Extremity normal to inspection Neuro Neuro Narrative: Moves all 4 extremities. Sensorium / Orientation: alert Skin no rashes or lesions noted MDM MDM MDM Narrative Medical decision making narrative: Patient given aerosol treatments. Lab work, EKG, chest x-ray, head CT ordered. Covid swab obtained. Lab Data Attestation: I reviewed the patient's lab results. Labs: Laboratory Results - last 24 hr 11/17/21 11/17/21 11/17/21 18:20 18:20 18:20 WBC 9.6 RBC 4.39 Hgb 13.3 Hct 44.1 MCV 100.5 H MCH 30.3 MCHC 30.2 L RDW Std Deviation 57.3 H RDW Coeff of Kirstie 15.3 H Plt Count 360 MPV 9.3 Immature Gran % (Auto) 0.400 Neut % (Auto) 85.8 H Lymph % (Auto) 7.4 L Wagoner % (Auto) 6.0 Eos % (Auto) 0.1 Baso % (Auto) 0.3 Absolute Neuts (auto) 8.2 H Absolute Lymphs (auto) 0.71 L Nucleated RBC % 0 Sodium 137 Potassium 5.1 Chloride 104 Carbon Dioxide 28.0 Anion Gap 5 BUN 18 Creatinine 2.27 H Estim Creat Clear Calc 23.71 Est GFR (MDRD) Af Amer 29 L Est GFR (MDRD) Non-Af 24 L BUN/Creatinine Ratio 7.9 L Glucose 163 H Calcium 8.8 Total Bilirubin 0.30 Direct Bilirubin 0.13 AST 72 H ALT 30 Alkaline Phosphatase 82 Troponin I High Sens 206 H* Total Protein 7.7 Albumin 3.7 Globulin 4.0 Ur Drug Screen Comment Ethyl Alcohol < 3.0 11/17/21 19:51 WBC RBC Hgb Hct MCV MCH MCHC RDW Std Deviation RDW Coeff of Kirstie Plt Count MPV Immature Gran % (Auto) Neut % (Auto) Lymph % (Auto) Wagoner % (Auto) Eos % (Auto) Baso % (Auto) Absolute Neuts (auto) Absolute Lymphs (auto) Nucleated RBC % Sodium Potassium Chloride Carbon Dioxide Anion Gap BUN Creatinine Estim Creat Clear Calc Est GFR (MDRD) Af Amer Est GFR (MDRD) Non-Af BUN/Creatinine Ratio Glucose Calcium Total Bilirubin Direct Bilirubin AST ALT Alkaline Phosphatase Troponin I High Sens Total Protein Albumin Globulin Ur Drug Screen Comment Ethyl Alcohol Radiography Chest X-Ray - ED: 1 View, Read by ED Physician and No Infiltrates Diagnostic Testing: Clinical Impression(s) from Imaging Studies Chest X-Ray 11/17/21 18:50 IMPRESSION: No acute cardiopulmonary process. Electronically Signed: Gab Ann MD at 19:28 EST , Brain CT 11/17/21 18:52 IMPRESSION: 1. No acute findings. 2. Chronic infarcts. 3. Right temporal arachnoid cyst, mildly increased from the prior study. Electronically Signed: Pau Alexandre MD at 19:59 EST Reading Location ID and State: [id number] / Tel , Service support , EKG Initial EKG: Attestation: I personally reviewed and interpreted this EKG as follows: Interpretation: Sinus Rhythm (Sinus at 90 with right bundle branch block. No acute ischemia. No significant change when compared to prior study of June 2021.) Treatment and Re-Evaluation Comments:: Patient's lab work is reviewed. Chest x-ray shows no infiltrate. CBC normal. Chemistry studies significant for elevated creatinine at 2.27. Troponin elevated at 206. EtOH is negative. Tox screen currently pending. Patient was given p.o. aspirin. Although she is complaining of some chest pain this is reproducible as she had significant sternal rubs trying to awaken her when she was unresponsive. Patient denies any known history of cardiac disease, but also does not ever having a pulmonary embolism in the past which is documented in her history. She still remains quite confused. I will speak with hospitalist regarding admission for cycling of enzymes. Patient has been transition down to 8 L nasal cannula with O2 sat of 95%. Blood pressure is 111/81 with a heart rate of 88. Discharge Plan Dx/Rx/DC Orders Clinical Impression: Episode of unresponsiveness, Elevated troponin, Acute renal insufficiency, Confusion Disposition Disposition: Acute Care Hospital [facility]
[2021-11-17] MEDS: Albuterol 2.5 MG/3 ML VIAL.NEB. INHALATION ×3 (18:30→18:56)
[2021-11-17] MEDS: Ipratropium/Albuterol Sulfate 3 ML AMPUL.NEB INHALATION (18:30)
[2021-11-17 18:42] LABS: Absolute Lymphocyte Count 0.71 X10^3/uL (0.83-4.51); Absolute Neutrophil Count 8.2 X10^3/uL (2.0-7.7); Basophil# 0.03 X10^3/uL; Basophil% 0.3 % (0-1); Eosinophil# 0.01 X10^3/uL; Eosinophils% 0.1 % (0-5); Hematocrit 44.1 % (37-47); Hemoglobin 13.3 g/dL (12.0-15.0); Lymphocyte # 0.71 X10^3/ul (0.83-4.51); Lymphocyte % 7.4 % (19-41); Mean Corp Hgb Conc 30.2 g/dL (32-36); Mean Corpuscular Hgb 30.3 pg (27.0-32.0); Mean Corpuscular Volume 100.5 fL (81-99); Mean Platelet Vol. 9.3 fl (6.2-12.0); Monocyte# 0.58 X10^3/uL; NRBC Flagged by Analyzer 0 % (0-5); Neutrophil # 8.24 X10^3/uL (2.7-7.7); Neutrophil % 85.8 % (47-70); Platelet Count 360 K/mm3 (150-450); RBC Distribution Width CV 15.3 % (11.6-14.6); RBC Distribution Width SD 57.3 fl (35.1-43.9); Red Blood Count 4.39 M/mm3 (4.2-5.4); White Blood Count 9.6 K/mm3 (4.4-11.0)
--- NOTE | 2021-11-17 18:50 | RAD_ITS ---
STUDY: X-RAY CHEST REASON FOR EXAM: Female, 51 years old. sob TECHNIQUE: 1 view COMPARISON: 07/14/2021 FINDINGS: Cardiomediastinal silhouette is unremarkable. Costophrenic angles are sharp. Lungs are hyperinflated but clear. The trachea is midline. There is no pneumothorax. The bones are grossly intact. RAD/Chest 1 View (Portable) IMPRESSION: No acute cardiopulmonary process. Electronically Signed: Gab Ann MD at 19:28 EST ,
--- NOTE | 2021-11-17 18:52 | CT_ITS ---
STUDY: CT BRAIN WITHOUT CONTRAST REASON FOR EXAM: Female, 51 years old. confusion RADIATION DOSAGE (If Supplied By Facility): CTDIvol = ( 44.99 ) mGy, DLP = ( 796.11 ) mGycm TECHNIQUE: Transaxial CT imaging of the brain was performed without administration of intravenous contrast material. Individualized dose optimization techniques were used for this CT. COMPARISON: 05/28/2012. FINDINGS: Normal soft tissue structures. Normal calvarium. Normal size ventricles and extra-axial spaces for the patient''s age. Normal white matter tracts of the cerebral hemispheres. There is no intracranial hemorrhage. No acute territorial infarct. Chronic right temporoparietal and left parietal infarcts. 5.8 x 2.3 x 3 cm right middle cranial fossa arachnoid cyst is mildly increased from 2012. Normal visualized paranasal sinuses. CT/Brain/Head without Contrast IMPRESSION: 1. No acute findings. 2. Chronic infarcts. 3. Right temporal arachnoid cyst, mildly increased from the prior study. Electronically Signed: Pau Alexandre MD at 19:59 EST Reading Location ID and State: [id number] / Tel , Service support ,
[2021-11-17 19:05] LABS: AST(SGOT) 72 U/L (15-37); Alanine Aminotransfer ALT/SGPT 30 U/L (13-56); Albumin, Serum 3.7 g/dL (3.2-5.0); Alcohol, Blood (Medical)-Serum < 3.0 mg/dL; Alkaline Phosphatase 82 U/L (45-117); Anion Gap 5 (5-15); BUN 18 mg/dL (7-18); BUN/Creat Ratio 7.9 RATIO (10-20); Bilirubin, Direct 0.13 mg/dL (0.00-0.30); Calcium,Total 8.8 mg/dL (8.5-10.1); Chloride 104 mmol/L (98-107); Creatinine, Serum 2.27 mg/dL (0.55-1.02); EST Glomerular Filtration Rate 24 mL/min (>60); Est Glom Filt Rate - Afr Amer 29 mL/min (>60); Estimated Creatinine Clearance 23.71 ml/min; Glucose 163 mg/dL (74-106); Potassium 5.1 mmol/L (3.5-5.1); Protein, Total 7.7 g/dL (6.4-8.2); Sodium Level 137 mmol/L (136-145); Troponin-I HS 206 pg/mL (3.0-54.0)
[2021-11-17] MEDS: Aspirin 81 MG TAB.CHEW 324 MG PO (19:25)
--- NOTE | 2021-11-17 20:30 | PCM.HP.STD ---
Documented by User: ALFRED Villatoro 11/17/21 20:48 HPI - General General Date of Admission: 11/17/21 Date of Service: 11/17/21 Chief Complaint: Unresponsive HPI Narrative TJ BIGGS, is a 51 F who presents to the ER unresponsive. Patient received 8 mg of Narcan and became more alert and combative at that point. Patient will open eyes and answer questions to painful stimuli however patient quickly falls back asleep. Patient is unable to contribute medical history at this time. Patient currently on 8 L high flow nasal cannula oxygen. Patient also noted to be hypertensive. [facility] Medical History Anxiety Asthma Bipolar disorder Chronic pain Congestive heart failure (CHF) COPD (chronic obstructive pulmonary disease) Coronary atherosclerosis of [place] coronary vessel Diabetes Dysthymic disorder GERD (gastroesophageal reflux disease) Irregular heart beat Obesity On home oxygen therapy Osteopenia Pulmonary embolism Smoker Sprain of left foot Stroke/cerebrovascular accident Tobacco use disorder Home Medications Dulera 2 inh INHALATION BID 03/17/21 [History Last Taken 03/16/21 09:00] Incruse Ellipta 1 inh INHALATION DAILY 03/17/21 [History Last Taken 03/16/21 09:00] albuterol sulfate 2 puff INHALATION Q4H PRN 03/17/21 [History Last Taken 03/16/21 18:00] aspirin 81 mg PO DAILY 03/17/21 [History Last Taken 03/16/21 09:00] buspirone 30 mg PO BID 03/17/21 [History Last Taken 03/16/21 09:00] calcium carbonate [Calcium 600] 600 mg PO DAILY 03/17/21 [History Last Taken 03/16/21 09:00] cetirizine 10 mg PO DAILY 03/17/21 [History Last Taken Unknown] clopidogrel 75 mg PO DAILY 03/17/21 [History Last Taken 03/16/21 09:00] fluoxetine 60 mg PO DAILY 03/17/21 [History Last Taken 03/16/21 09:00] folic acid 1 mg PO DAILY 03/17/21 [History Last Taken 03/16/21 09:00] furosemide 40 mg PO DAILY 03/17/21 [History Last Taken 03/16/21 09:00] gabapentin 600 mg PO TID 03/17/21 [History Last Taken 03/16/21 17:30] ipratropium-albuterol 3 ml INHALATION TID 03/17/21 [History Last Taken 03/16/21 14:00] levothyroxine 75 mcg PO DAILY 03/17/21 [History Last Taken 03/16/21 07:00] losartan 25 mg PO DAILY 03/17/21 [History Last Taken 03/16/21 09:00] metformin 500 mg PO BID 03/17/21 [History Last Taken 03/16/21 09:00] montelukast 10 mg PO QHS 03/17/21 [History Last Taken 03/15/21 21:00] omeprazole 20 mg PO DAILY 03/17/21 [History Last Taken 03/16/21 09:00] pravastatin 10 mg PO DAILY 03/17/21 [History Last Taken Unknown] trazodone 200 mg PO QHS 03/17/21 [History Last Taken 03/15/21 21:00] cyclobenzaprine 10 mg tablet 10 mg PO TID PRN #20 tab 05/09/21 [Rx Last Taken Unknown] clonazepam 0.5 mg PO DAILY PRN 07/14/21 [History Last Taken Unknown] prednisone 40 mg PO DAILY #14 tab 07/14/21 [Rx Last Taken Unknown] tramadol 50 mg PO Q6H PRN 07/14/21 [History Last Taken Unknown] Allergy/AdvReac Type Severity Reaction Status Date / Time alprazolam [From Xanax] AdvReac makes pt Verified 07/14/21 01:22 violent Family History Mother COPD (chronic obstructive pulmonary disease) Father Hypertension Surgical History H/O tubal ligation History of cholecystectomy History of salpingo-oophorectomy Social History (Updated 11/17/21 @ 20:[address] Arlene Dooley MD) household members: family Smoking Status: Current every day smoker tobacco type: cigarettes alcohol intake: current alcohol intake frequency: a few times a month substance use type: does not use ROS Review of Systems ROS Unobtainable: due to mental status Vital Signs Vital Signs Vital Signs: 11/17/21 18:10 11/17/21 18:17 11/17/21 18:57 Temperature 97.7 F L 97.7 F L Temperature Source Temporal Temporal Pulse Rate 91 104 H 92 Respiratory Rate 18 23 H 20 H Respiratory Pattern Tachypnea Blood Pressure 202/163 H 202/163 H Blood Pressure Mean 176 176 Pulse Ox 93 96 Oxygen Delivery Method Non-Rebreather Non-Rebreather Oxygen Flow Rate (L/min) 11/17/21 19:34 Temperature Temperature Source Pulse Rate Respiratory Rate Respiratory Pattern Blood Pressure Blood Pressure Mean Pulse Ox 92 Oxygen Delivery Method High Flow Oxygen Flow Rate (L/min) 8 Weight Weight: 217 lb 2.485 oz Body Mass Index (BMI) 38.5 Physical Exam Const General Appearance: uncooperative and lethargic Orientation / Consciousness: obtunded HEENT normocephalic and head/scalp atraumatic Eyes conjunctivae normal and no scleral icterus Neck no lymphadenopathy and supple General: trachea midline Resp normal respiratory effort and normal air movement Auscultation: wheezes expiratory wheezes, scattered wheezes and throughout Cardio regular rate, regular rhythm, S1 normal heart sound, S2 normal heart sound and peripheral pulses 2+ throughout GI normal to inspection, nondistended, normoactive bowel sounds, soft to palpation and non-tender Extremity normal capillary refill and no clubbing, cyanosis or edema General Extremity: no tenderness to palpation of joints or extremities Skin General Skin Exam: no breakdown and turgor normal Lesions: no lesions Rashes: no rashes Neuro moves all extremities Sensorium / Orientation: lethargic and obtunded Speech: speech abnormal Details: Positive for garbled Psych Attitude: uncooperative Speech: incoherent Thought Process: incoherent and confused Results Lab / Micro Data Result Diagrams: 11/17/21 18:20 11/17/21 18:20 Labs: Laboratory Results - last 24 hr 11/17/21 18:20: WBC 9.6, RBC 4.39, Hgb 13.3, Hct 44.1, MCV 100.5 H, MCH 30.3, MCHC 30.2 L, RDW Std Deviation 57.3 H, RDW Coeff of [place]kr[place] 15.3 H, Plt Count 360, MPV 9.3, Immature Gran % (Auto) 0.400, Neut % (Auto) 85.8 H, Lymph % (Auto) 7.4 L, [place] % (Auto) 6.0, Eos % (Auto) 0.1, Baso % (Auto) 0.3, Absolute Neuts (auto) 8.2 H, Absolute Lymphs (auto) 0.71 L, Nucleated RBC % 0 11/17/21 18:20: Sodium 137, Potassium 5.1, Chloride 104, Carbon Dioxide 28.0, Anion Gap 5, BUN 18, Creatinine 2.27 H, Estim Creat Clear Calc 23.71, Est GFR (MDRD) Af Amer 29 L, Est GFR (MDRD) Non-Af 24 L, BUN/Creatinine Ratio 7.9 L, Glucose 163 H, Calcium 8.8, Total Bilirubin 0.30, Direct Bilirubin 0.13, AST 72 H, ALT 30, Alkaline Phosphatase 82, Troponin I High Sens 206 H*, Total Protein 7.7, Albumin 3.7, Globulin 4.0 11/17/21 18:20: Ethyl Alcohol < 3.0 11/17/21 19:51: Ur Drug Screen Comment Micro: Microbiology 11/17/21 18:30 Nasal Secretion SARS-CoV-2 Antigen (Rapid) - Final Radiology Impression Chest X-Ray 11/17/21 18:50 IMPRESSION: No acute cardiopulmonary process. Electronically Signed: Gab Ann MD at 19:28 EST , Brain CT 11/17/21 18:52 IMPRESSION: 1. No acute findings. 2. Chronic infarcts. 3. Right temporal arachnoid cyst, mildly increased from the prior study. Electronically Signed: Pau Alexandre MD at 19:59 EST Reading Location ID and State: [id number] / Tel , Service support , Assessment & Plan Assessment/Plan (1) Acute kidney injury: (2) Elevated troponin: (3) COPD with acute exacerbation: (4) Opiate overdose: QUALIFIERS: Encounter type: initial encounter Injury intent: undetermined intent Qualified Code(s): T40.604A - Poisoning by unspecified narcotics, undetermined, initial encounter PLAN: 1. Opiate overdose -Admit to PCU for continuous cardiac monitoring -Patient positive on urine drug screen for methamphetamines and opiates, unknown intent at this time -Patient became responsive following dose of Narcan in ER -Patient is currently taking care of her mother who is on hospice and on morphine, Case management consulted for concern of medication diversion 2. Acute kidney injury -Creatinine 2.21, baseline 0.8 -Judicious IV hydration ordered -Daily CMP -Will hold nephrotoxic medications at this time 3. Acute COPD exacerbation with hypoxia, multifactorial -Scheduled DuoNeb with as needed albuterol nebulizer treatments ordered -Oxygen per protocol, currently on 8 L nasal cannula high flow -Encourage incentive spirometry when patient is alert enough to use it -IV Solu-Medrol ordered 4. Elevated troponin -Patient initiated on heparin drip, PTT per protocol -Echocardiogram ordered -CBC, CMP, mag, Phos, lipid panel ordered for a.m. -Continue to trend cardiac enzymes 5. Depression and anxiety -Continue fluoxetine, will hold remaining home medications due to sedating effect 6. Hypothyroidism -Continue levothyroxine 7. Hypertension -Vital signs per protocol, patient currently hypertensive -Continue patient's home medication regimen -As needed hydralazine ordered for systolic blood pressure greater than 160 8. Diabetes mellitus type 2 -AC at bedtime blood sugars with sliding scale insulin ordered -Hold Metformin DVT prophylaxis-SCDs This patient was seen by ALFRED Villatoro under the supervision of Dr. Dooley 32 minutes spent in clinical coordination of patient's plan of care. Documented by User: Dr. Arlene Dooley MD 11/17/21 20:57 HPI - General General Date of Admission: 11/17/21 [facility] Medical History Anxiety Asthma Bipolar disorder Chronic pain Congestive heart failure (CHF) COPD (chronic obstructive pulmonary disease) Coronary atherosclerosis of [place] coronary vessel Diabetes Dysthymic disorder GERD (gastroesophageal reflux disease) Irregular heart beat Obesity On home oxygen therapy Osteopenia Pulmonary embolism Smoker Sprain of left foot Stroke/cerebrovascular accident Tobacco use disorder Home Medications Dulera 2 inh INHALATION BID 03/17/21 [History Last Taken 03/16/21 09:00] Incruse Ellipta 1 inh INHALATION DAILY 03/17/21 [History Last Taken 03/16/21 09:00] albuterol sulfate 2 puff INHALATION Q4H PRN 03/17/21 [History Last Taken 03/16/21 18:00] aspirin 81 mg PO DAILY 03/17/21 [History Last Taken 03/16/21 09:00] buspirone 30 mg PO BID 03/17/21 [History Last Taken 03/16/21 09:00] calcium carbonate [Calcium 600] 600 mg PO DAILY 03/17/21 [History Last Taken 03/16/21 09:00] cetirizine 10 mg PO DAILY 03/17/21 [History Last Taken Unknown] clopidogrel 75 mg PO DAILY 03/17/21 [History Last Taken 03/16/21 09:00] fluoxetine 60 mg PO DAILY 03/17/21 [History Last Taken 03/16/21 09:00] folic acid 1 mg PO DAILY 03/17/21 [History Last Taken 03/16/21 09:00] furosemide 40 mg PO DAILY 03/17/21 [History Last Taken 03/16/21 09:00] gabapentin 600 mg PO TID 03/17/21 [History Last Taken 03/16/21 17:30] ipratropium-albuterol 3 ml INHALATION TID 03/17/21 [History Last Taken 03/16/21 14:00] levothyroxine 75 mcg PO DAILY 03/17/21 [History Last Taken 03/16/21 07:00] losartan 25 mg PO DAILY 03/17/21 [History Last Taken 03/16/21 09:00] metformin 500 mg PO BID 03/17/21 [History Last Taken 03/16/21 09:00] montelukast 10 mg PO QHS 03/17/21 [History Last Taken 03/15/21 21:00] omeprazole 20 mg PO DAILY 03/17/21 [History Last Taken 03/16/21 09:00] pravastatin 10 mg PO DAILY 03/17/21 [History Last Taken Unknown] trazodone 200 mg PO QHS 03/17/21 [History Last Taken 03/15/21 21:00] cyclobenzaprine 10 mg tablet 10 mg PO TID PRN #20 tab 05/09/21 [Rx Last Taken Unknown] clonazepam 0.5 mg PO DAILY PRN 07/14/21 [History Last Taken Unknown] prednisone 40 mg PO DAILY #14 tab 07/14/21 [Rx Last Taken Unknown] tramadol 50 mg PO Q6H PRN 07/14/21 [History Last Taken Unknown] Allergy/AdvReac Type Severity Reaction Status Date / Time alprazolam [From Xanax] AdvReac makes pt Verified 07/14/21 01:22 violent Family History Mother COPD (chronic obstructive pulmonary disease) Father Hypertension Surgical History H/O tubal ligation History of cholecystectomy History of salpingo-oophorectomy Social History (Updated 11/17/21 @ 20:[address] Arlene Dooley MD) household members: family Smoking Status: Current every day smoker tobacco type: cigarettes alcohol intake: current alcohol intake frequency: a few times a month substance use type: does not use Results Lab / Micro Data Result Diagrams: 11/17/21 18:20 11/17/21 18:20
[2021-11-17 20:36] LABS: Prothrombin Time (Protime)PT. 12.2 SECONDS (11.7-14.9)
[2021-11-17 20:36] LABS: Amphetamine Urine VISTA NEGATIVE (<1000 ng/mL); Barbiturate Urine VISTA NEGATIVE (< 200 ng/mL); Benzodiazepine Urine VISTA NEGATIVE (< 200 ng/mL); Cocaine Urine VISTA NEGATIVE (< 300 ng/mL); Ecstacy Urine VISTA POSITIVE (< 500 ng/mL); Methadone Urine VISTA NEGATIVE (< 300 ng/mL); PCP Urine VISTA NEGATIVE (< 25 ng/mL); THC Urine VISTA NEGATIVE (< 50 ng/mL); Vista UDS pH Range 6
[2021-11-17] MEDS: Heparin Injection (Vial) 5,000 UNIT/ML VIAL 7500 UNIT IV (20:54)
[2021-11-17] MEDS: HEPARIN/D5w 25,000 UNITS 25,000 UNITS/250 ML IV.SOLN. 14 UNITS IV (20:54)
[2021-11-17] MEDS: 0.9% Normal Saline 1,000 ML 150 ML IV (20:55)
--- NOTE | 2021-11-17 21:04 | ED.RN ---
attempting to obtain delta troponin and 2nd set of bc.
--- NOTE | 2021-11-17 21:22 | ECHOCS_ITS ---
Reason For Study: NSTEMI Procedure This was a 2D Doppler, Color Flow transthoracic echocardiogram. Contrast injection was performed. Exam performed portable in patient room. Left Ventricle Normal LV size. Left ventricular systolic function is normal. The estimated ejection fraction is 55 %. Stage 1 diastolic dysfunction. No regional wall motion abnormalities noted. Right Ventricle Normal RV size. Mild global right ventricular systolic dysfunction. Atria Normal left atrium. Normal right atrium. Mitral Valve Normal mitral valve. Tricuspid Valve Normal tricuspid valve. Mild (1+) tricuspid valve insufficiency. Pulmonary artery systolic pressure is 37 mmHg. Aortic Valve Trisinus/trileaflet aortic valve. Pulmonic Valve Normal pulmonic valve. Great Vessels Normal aortic root. The pulmonary artery is normal size. The inferior vena cava is dilated. and does not collapse. Pericardium/Pleural No pericardial effusion. Medication Diluted definity 5ml given slow IV push to enhance endocardial definition. MMode/2D Measurements & Calculations LVIDd: 4.3 cm IVSd: 1.2 cm Ao root diam: 3.2 cm LVIDs: 3.1 cm LVPWd: 0.98 cm RVDd: 4.2 cm FS: 27.5 % LAV(MOD-bp): 32.0 ml LVAd ap4: 27.0 cm2 SV(MOD-sp4): 53.5 ml LAV(MOD-bp) Indexed: 16.4 ml/m2 LVLd ap4: 7.6 cm LAV(MOD-sp2): 35.3 ml EDV(MOD-sp4): 79.5 ml LAV(MOD-sp4): 25.0 ml EDV(sp4-el): 81.8 ml LVAs ap4: 13.7 cm2 LVLs ap4: 6.0 cm ESV(MOD-sp4): 26.1 ml ESV(sp4-el): 26.7 ml EF(MOD-sp4): 67.2 % EF(sp4-el): 67.4 % SV(sp4-el): 55.1 ml LA A4 area: 12.1 cm2 LA dimension(2D): 3.2 cm RA A4 area: 18.2 cm2 Doppler Measurements & Calculations MV E max triston: 89.9 cm/sec Lat Peak E' Triston: 11.6 cm/sec Med Peak E' Triston: 12.5 cm/sec MV A max triston: 101.7 cm/sec E/E' lat: 7.8 E/E' med: 7.2 MV E/A: 0.88 Ao V2 max: 141.2 cm/sec LV V1 max: 121.3 cm/sec PA V2 max: 102.1 cm/sec Ao max P.0 mmHg LV V1 max P.9 mmHg Ao V2 mean: 100.7 cm/sec Ao mean P.5 mmHg Ao V2 VTI: 29.0 cm TR max triston: 271.4 cm/sec TR max P.5 mmHg ECHO/Echo Complete W/ Contrast Interpretation Summary Normal LV size. Left ventricular systolic function is normal. The estimated ejection fraction is 55 %. Stage 1 diastolic dysfunction. Pulmonary artery systolic pressure is 37 mmHg. Contrast injection was performed. Ordering Physician: Arlene Dooley Referring Physician: Jeanne Lagunas Performed By: Patt Paul, GIGI, RVT
--- NOTE | 2021-11-17 21:23 | EKG12_ITS ---
Test Reason : CP Blood Pressure : / mmHG Vent. Rate : 085 BPM Atrial Rate : 085 BPM P-R Int : 150 ms QRS Dur : 106 ms QT Int : 386 ms P-R-T Axes : 069 041 043 degrees QTc Int : 459 ms Normal sinus rhythm with sinus arrhythmia Low voltage QRS Nonspecific ST and T wave abnormality Abnormal ECG When compared with ECG of 14-JUL-2021 01:57, Right bundle branch block is no longer Present Confirmed by ELIZABETH MELO, CITLALY ([id number]), make up editor MARIA SIFUENTES ([id number]) on 11/19/2021 8:45:02 AM Referred By: LIZ Confirmed By:CITLALY JOHNSON MD
[2021-11-17 21:24] LABS: Procalcitonin 0.13 ng/mL (0.00-0.09)
[2021-11-17 21:46] LABS: Magnesium 2.3 mg/dL (1.6-2.6); Troponin-I HS 430 pg/mL (3.0-54.0)
--- NOTE | 2021-11-17 21:54 | PCS.PANDOC ---
PANDEMIC DOCUMENTATION INITIATED: Date: 06/03/2021 Time: 190
[2021-11-17] MEDS: 0.9% Saline Lock 10 ML Syringe IV (22:37)
[2021-11-17 22:50] LABS: Bedside Glucose 133 mg/dL (70-110)
[2021-11-18] VITALS (15 sets, daily range): BP systolic 112–141; BP diastolic 77–98; PULSE 78–95; RESP 12–20; TEMP 36.2–37.2; O2SAT 91–96
[2021-11-18 01:19] LABS: Troponin-I HS 588 pg/mL (3.0-54.0)
[2021-11-18 04:05] LABS: ALB/GLOB Ratio 0.9 RATIO (0.9-2.4); AST(SGOT) 181 U/L (15-37); Alanine Aminotransfer ALT/SGPT 58 U/L (13-56); Albumin, Serum 3.3 g/dL (3.2-5.0); Alkaline Phosphatase 77 U/L (45-117); Anion Gap 5 (5-15); BUN 20 mg/dL (7-18); BUN/Creat Ratio 13.2 RATIO (10-20); Calcium,Total 8.3 mg/dL (8.5-10.1); Chloride 108 mmol/L (98-107); Cholesterol 138 mg/dL (200); Creatinine, Serum 1.51 mg/dL (0.55-1.02); EST Glomerular Filtration Rate 38 mL/min (>60); Est Glom Filt Rate - Afr Amer 46 mL/min (>60); Estimated Creatinine Clearance 38.77 ml/min; Globulin 3.5 g/dL (2.2-4.2); Glucose 163 mg/dL (74-106); High Density Lipoprotein 61 mg/dL; Potassium 4.7 mmol/L (3.5-5.1); Protein, Total 6.8 g/dL (6.4-8.2); Sodium Level 139 mmol/L (136-145); Triglycerides 56 mg/dL; Very Low Density Lipoprotein 11 mg/dL (5-40)
[2021-11-18] MEDS: 0.9% Normal Saline 1,000 ML 100 ML IV ×2 (04:26→14:07)
[2021-11-18] MEDS: Albuterol 2.5 MG/3 ML VIAL.NEB. INHALATION (04:46)
[2021-11-18] MEDS: Levothyroxine 75 MCG Tablet PO (05:29)
[2021-11-18 05:56] LABS: Bedside Glucose 165 mg/dL (70-110)
[2021-11-18] MEDS: Insulin Lispro 100 UNIT/ML INSULN.PEN SC ×4 (06:31→21:45)
[2021-11-18 06:36] LABS: Bedside Glucose 175 mg/dL (70-110)
[2021-11-18] MEDS: Ipratropium/Albuterol Sulfate 3 ML AMPUL.NEB INHALATION ×4 (07:09→19:10)
[2021-11-18 08:05] LABS: Absolute Neutrophil Count 10.4 X10^3/uL (2.0-7.7); Basophil# 0.01 X10^3/uL; Basophil% 0.1 % (0-1); Hematocrit 30.2 % (37-47); Hemoglobin 9.6 g/dL (12.0-15.0); Lymphocyte % 2.6 % (19-41); Mean Corp Hgb Conc 31.8 g/dL (32-36); Mean Corpuscular Hgb 30.1 pg (27.0-32.0); Mean Corpuscular Volume 94.7 fL (81-99); Mean Platelet Vol. 9.4 fl (6.2-12.0); Monocyte# 0.83 X10^3/uL; Monocyte% 7.2 % (0-10); NRBC Flagged by Analyzer 0 % (0-5); Neutrophil # 10.36 X10^3/uL (2.7-7.7); Neutrophil % 89.6 % (47-70); POSITIVE DIFFERENTIAL YES; Platelet Count 204 K/mm3 (150-450); RBC Distribution Width CV 14.9 % (11.6-14.6); RBC Distribution Width SD 52.4 fl (35.1-43.9); Red Blood Count 3.19 M/mm3 (4.2-5.4); White Blood Count 11.6 K/mm3 (4.4-11.0)
[2021-11-18 08:09] LABS: Differential Indicated SCAN CRITERIA MET
[2021-11-18 08:36] LABS: Troponin-I HS 456 pg/mL (3.0-54.0)
--- NOTE | 2021-11-18 09:16 | PCM.CONS.C ---
Assessment & Plan Assessment/Plan (1) Elevated troponin: PLAN: Patient was noted to have elevated cardiac enzymes. The etiology of which is unclear. I suspect the above is demand ischemia. I would recommend that we obtain an echocardiogram to assess her ventricular function and look for any wall motion abnormalities. In the meantime she should be rehydrated until her renal function is improved. At that time I would consider a left heart catheterization to definitively exclude obstructive coronary disease. I have discussed this with her and she understands and agrees to proceed. We will institute statin use. (2) HTN (hypertension): PLAN: She appears to have a history of hypertension. Due to her renal dysfunction I would recommend the use of a calcium channel donna dihydropyridine. An echocardiogram is being performed to assess her left ventricular function and depending on the findings further recommendations will be made. Thank you for allowing me to participate in the care of your patient. Please don't hesitate to call if any issues arise. HPI Consult Data Date of Consult: 11/18/21 HPI Narrative HPI Narrative: TJ BIGGS, is a 51 F who presented to the emergency room unresponsive and a suspected drug overdose was confirmed with Narcan administration and performed recovery of most function. Patient had not complained of any chest pain. EKG was performed which did not demonstrate any significant abnormalities but cardiac enzymes were obtained which were noted to be abnormal. Patient was also noted to have renal dysfunction which has improved with intravenous fluids. She does have a history of obstructive lung disease but no previous cardiac disease other than possible congestive heart failure. Cardiology was consulted due to the abnormal cardiac enzyme pattern. On discussion with her this morning she denies any chest pain paroxysmal nocturnal dyspnea pedal edema no neck arm or jaw discomfort to suggest angina. [facility] Medical History Anxiety Asthma Bipolar disorder Chronic pain Congestive heart failure (CHF) COPD (chronic obstructive pulmonary disease) Coronary atherosclerosis of [place] coronary vessel Diabetes Dysthymic disorder GERD (gastroesophageal reflux disease) Irregular heart beat Obesity On home oxygen therapy Osteopenia Pulmonary embolism Smoker Sprain of left foot Stroke/cerebrovascular accident Tobacco use disorder Medical History unable to obtain Home Medications Dulera 2 inh INHALATION BID 03/17/21 [History Last Taken 03/16/21 09:00] Incruse Ellipta 1 inh INHALATION DAILY 03/17/21 [History Last Taken 03/16/21 09:00] albuterol sulfate 2 puff INHALATION Q4H PRN 03/17/21 [History Last Taken 03/16/21 18:00] aspirin 81 mg PO DAILY 03/17/21 [History Last Taken 03/16/21 09:00] buspirone 30 mg PO BID 03/17/21 [History Last Taken 03/16/21 09:00] calcium carbonate [Calcium 600] 600 mg PO DAILY 03/17/21 [History Last Taken 03/16/21 09:00] cetirizine 10 mg PO DAILY 03/17/21 [History Last Taken Unknown] clopidogrel 75 mg PO DAILY 03/17/21 [History Last Taken 03/16/21 09:00] fluoxetine 60 mg PO DAILY 03/17/21 [History Last Taken 03/16/21 09:00] folic acid 1 mg PO DAILY 03/17/21 [History Last Taken 03/16/21 09:00] furosemide 40 mg PO DAILY 03/17/21 [History Last Taken 03/16/21 09:00] gabapentin 600 mg PO TID 03/17/21 [History Last Taken 03/16/21 17:30] ipratropium-albuterol 3 ml INHALATION TID 03/17/21 [History Last Taken 03/16/21 14:00] levothyroxine 75 mcg PO DAILY 03/17/21 [History Last Taken 03/16/21 07:00] losartan 25 mg PO DAILY 03/17/21 [History Last Taken 03/16/21 09:00] metformin 500 mg PO BID 03/17/21 [History Last Taken 03/16/21 09:00] montelukast 10 mg PO QHS 03/17/21 [History Last Taken 03/15/21 21:00] omeprazole 20 mg PO DAILY 03/17/21 [History Last Taken 03/16/21 09:00] pravastatin 10 mg PO DAILY 03/17/21 [History Last Taken Unknown] trazodone 200 mg PO QHS 03/17/21 [History Last Taken 03/15/21 21:00] cyclobenzaprine 10 mg tablet 10 mg PO TID PRN #20 tab 05/09/21 [Rx Last Taken Unknown] clonazepam 0.5 mg PO DAILY PRN 07/14/21 [History Last Taken Unknown] prednisone 40 mg PO DAILY #14 tab 07/14/21 [Rx Last Taken Unknown] tramadol 50 mg PO Q6H PRN 07/14/21 [History Last Taken Unknown] Allergy/AdvReac Type Severity Reaction Status Date / Time alprazolam [From Xanax] AdvReac makes pt Verified 11/17/21 21:51 violent Family History Mother COPD (chronic obstructive pulmonary disease) Father Hypertension Surgical History H/O tubal ligation History of cholecystectomy History of salpingo-oophorectomy Social History household members: family Smoking Status: Current every day smoker tobacco type: cigarettes alcohol intake: current alcohol intake frequency: a few times a month substance use type: does not use ROS Constitutional Constitutional: Denies fever(s) or weight loss Eyes Eyes: Reports systems reviewed and no addt'l complaints, except as documented ENT HEENT: Reports systems reviewed and no addt'l complaints, except as documented Cardiovascular Cardiovascular: Denies chest pain at rest, chest pain with activity, dyspnea at rest, dyspnea on exertion, edema, palpitations or paroxysmal nocturnal dyspnea Respiratory/Chest Respiratory/Chest: Denies dyspnea on exertion, productive cough, shortness of breath at rest or shortness of breath with exertion Gastrointestinal Gastrointestinal: Denies change in bowel habits, nausea, vomiting or weight changes Genitourinary Genitourinary: Denies difficulty urinating Musculoskeletal Musculoskeletal: Denies joint stiffness or muscle weakness Integumentary Integumentary: Denies lesions Neurologic Neurologic: Denies dizziness or syncope Psychiatric Psychiatric: Denies anxiety Endocrine Endocrinology: Denies excessive sweating or fatigue Hematologic/Lymphatic Hematologic/Lymphatic: Denies anemia Allergic/Immunologic Allergic/Immunologic: Denies seasonal rhinorrhea Physical Exam Const alert, oriented x3 and no apparent distress General Appearance: cooperative HEENT hearing grossly normal bilaterally Head and Scalp: atraumatic Eyes EOMs intact bilaterally Neck General: normal visual inspection Chest inspection of chest normal and palpation of chest normal Resp normal respiratory effort Auscultation: clear to auscultation bilaterally Cardio regular rate, regular rhythm, S1 normal heart sound and S2 normal heart sound Jugular Venous Distention: JVD GI normal to inspection, nondistended, normoactive bowel sounds Extremity normal capillary refill and no pedal edema Peripheral Pulses: Yes pulses 2+ throughout and femoral pulses present Skin no rashes or lesions noted Neuro oriented x3 and CN's II-XII intact bilaterally Psych Appearance: grossly normal and appropriate Risk Stratification Risk Stratification Applicable: Yes Age >/= 65: No >/= 3 CAD Risk Factors (HTN, HLD, DM, family hx of CAD, or current smoker): No Aspirin Use in the Past 7 Days: No Severe Angina (>/= episodes in 24 hours): No EKG ST Changes >/= 0.5mm: No Positive Cardiac Marker: Yes LAUREANO Risk Stratification Score: 1 LAUREANO % Risk: 5% Risk Objective Data Vital Signs: Vital Signs Temp Pulse Resp BP Pulse Ox 97.9 F 86 14 112/85 H 96 11/18/21 06:23 11/18/21 07:12 11/18/21 07:09 11/18/21 06:23 11/18/21 07:09 Oxygen Flow Rate (L/min) 6 Oxygen Delivery Method Nasal Cannula Weight: 203 lb 4.259 oz Body Mass Index (BMI) 33.5 Intake & Output: Intake and Output for Last 24 Hours 11/16/21 11/17/21 11/18/21 23:59 23:59 23:59 Intake Total 500 / 500 1105.23 / 1105.23 Output Total 60 / 60 Balance 500 / 500 1045.23 / 1045.23 Lab / Micro Data Result Diagrams: 11/18/21 07:55 11/18/21 02:54 Labs: Laboratory Results - last 24 hr 11/17/21 18:20: WBC 9.6, RBC 4.39, Hgb 13.3, Hct 44.1, MCV 100.5 H, MCH 30.3, MCHC 30.2 L, RDW Std Deviation 57.3 H, RDW Coeff of Kirstie 15.3 H, Plt Count 360, MPV 9.3, Immature Gran % (Auto) 0.400, Neut % (Auto) 85.8 H, Lymph % (Auto) 7.4 L, [place] % (Auto) 6.0, Eos % (Auto) 0.1, Baso % (Auto) 0.3, Absolute Neuts (auto) 8.2 H, Absolute Lymphs (auto) 0.71 L, Nucleated RBC % 0 11/17/21 18:20: Sodium 137, Potassium 5.1, Chloride 104, Carbon Dioxide 28.0, Anion Gap 5, BUN 18, Creatinine 2.27 H, Estim Creat Clear Calc 23.71, Est GFR (MDRD) Af Amer 29 L, Est GFR (MDRD) Non-Af 24 L, BUN/Creatinine Ratio 7.9 L, Glucose 163 H, Calcium 8.8, Total Bilirubin 0.30, Direct Bilirubin 0.13, AST 72 H, ALT 30, Alkaline Phosphatase 82, Troponin I High Sens 206 H*, Total Protein 7.7, Albumin 3.7, Globulin 4.0 11/17/21 18:20: Ethyl Alcohol < 3.0 11/17/21 18:20: PT 12.2, INR 1.0, APTT 24.0 L 11/17/21 18:25: Procalcitonin 0.13 H 11/17/21 19:51: Urine Opiates Screen POSITIVE H, Urine Methadone Screen NEGATIVE, Ur Barbiturates Screen NEGATIVE, Ur Phencyclidine Scrn NEGATIVE, Ur Amphetamines Screen NEGATIVE, U Methamphetamin-MDMA POSITIVE H, U Benzodiazepines Scrn NEGATIVE, Urine Cocaine Screen NEGATIVE, U Cannabinoids Screen NEGATIVE, Ur Drug Screen Comment 11/17/21 21:09: Magnesium 2.3, Troponin I High Sens 430 H* 11/17/21 22:36: POC Glucose 133 H 11/18/21 00:28: Troponin I High Sens 588 H* 11/18/21 02:54: Sodium 139, Potassium 4.7, Chloride 108 H, Carbon Dioxide 26.0, Anion Gap 5, BUN 20 H, Creatinine 1.51 H, Estim Creat Clear Calc 38.77, Est GFR (MDRD) Af Amer 46 L, Est GFR (MDRD) Non-Af 38 L, BUN/Creatinine Ratio 13.2, Glucose 163 H, Calcium 8.3 L, Total Bilirubin 0.30, AST 181 H, ALT 58 H, Alkaline Phosphatase 77, Total Protein 6.8, Albumin 3.3, Globulin 3.5, Albumin/Globulin Ratio 0.9, Triglycerides 56, Cholesterol 138, LDL Cholesterol 66, VLDL Cholesterol 11, HDL Cholesterol 61 11/18/21 02:54: APTT 179.0 H* 11/18/21 05:48: POC Glucose 165 H 11/18/21 06:29: POC Glucose 175 H 11/18/21 07:55: WBC 11.6 H, RBC 3.19 L, Hgb 9.6 L, Hct 30.2 L, MCV 94.7 D, MCH 30.1, MCHC 31.8 L D, RDW Std Deviation 52.4 H, RDW Coeff of Kirstie 14.9 H, Plt Count 204, MPV 9.4, Immature Gran % (Auto) 0.500, Neut % (Auto) 89.6 H, Lymph % (Auto) 2.6 L, [place] % (Auto) 7.2, Eos % (Auto) 0.0, Baso % (Auto) 0.1, Absolute Neuts (auto) 10.4 H, Absolute Lymphs (auto) 0.30 L, Nucleated RBC % 0, Differential Comment COMMENT 11/18/21 07:55: Troponin I High Sens 456 H* Micro: Microbiology 11/17/21 18:30 Nasal Secretion SARS-CoV-2 Antigen (Rapid) - Final Cardiology Labs/Tests 11/17/21 18:20: WBC 9.6, RBC 4.39, Hgb 13.3, Hct 44.1, MCV 100.5 H, MCH 30.3, MCHC 30.2 L, Plt Count 360, MPV 9.3, Immature Gran % (Auto) 0.400, Neut % (Auto) 85.8 H, Lymph % (Auto) 7.4 L, [place] % (Auto) 6.0, Eos % (Auto) 0.1, Baso % (Auto) 0.3, Absolute Neuts (auto) 8.2 H, Nucleated RBC % 0 11/17/21 18:20: Sodium 137, Potassium 5.1, Chloride 104, Carbon Dioxide 28.0, Anion Gap 5, BUN 18, Creatinine 2.27 H, Est GFR (MDRD) Af Amer 29 L, Est GFR (MDRD) Non-Af 24 L, BUN/Creatinine Ratio 7.9 L, Glucose 163 H, Calcium 8.8, Total Bilirubin 0.30, Direct Bilirubin 0.13 11/17/21 18:20: PT 12.2, INR 1.0, APTT 24.0 L 11/17/21 21:09: Magnesium 2.3 11/18/21 02:54: Sodium 139, Potassium 4.7, Chloride 108 H, Carbon Dioxide 26.0, Anion Gap 5, BUN 20 H, Creatinine 1.51 H, Est GFR (MDRD) Af Amer 46 L, Est GFR (MDRD) Non-Af 38 L, BUN/Creatinine Ratio 13.2, Glucose 163 H, Calcium 8.3 L, Total Bilirubin 0.30, Triglycerides 56, Cholesterol 138, LDL Cholesterol 66, VLDL Cholesterol 11, HDL Cholesterol 61 11/18/21 02:54: APTT 179.0 H* 11/18/21 07:55: WBC 11.6 H, RBC 3.19 L, Hgb 9.6 L, Hct 30.2 L, MCV 94.7 D, MCH 30.1, MCHC 31.8 L D, Plt Count 204, MPV 9.4, Immature Gran % (Auto) 0.500, Neut % (Auto) 89.6 H, Lymph % (Auto) 2.6 L, [place] % (Auto) 7.2, Eos % (Auto) 0.0, Baso % (Auto) 0.1, Absolute Neuts (auto) 10.4 H, Nucleated RBC % 0 Rhythm: EKG: ECHO: Stress Test: Cardiac Cath: PCI: CT Surgery: Holter monitor: EPS: PPM: CXR: Chest CT Scan: Radiography Diagnostic Testing: Radiology Impression Chest X-Ray 11/17/21 18:50 IMPRESSION: No acute cardiopulmonary process. Electronically Signed: Gab Ann MD at 19:28 EST , Brain CT 11/17/21 18:52 IMPRESSION: 1. No acute findings. 2. Chronic infarcts. 3. Right temporal arachnoid cyst, mildly increased from the prior study. Electronically Signed: Pau Alexandre MD at 19:59 EST Reading Location ID and State: [id number] / Tel , Service support ,
[2021-11-18 11:21] LABS: Bedside Glucose 208 mg/dL (70-110)
[2021-11-18] MEDS: FLUoxetine 20 MG Capsule 60 MG PO (11:22)
[2021-11-18] MEDS: Pantoprazole Sodium 20 MG Tablet PO (11:28)
--- NOTE | 2021-11-18 11:38 | CASEMGMT ---
This RN CM to room to complete CM assessment and pt is lethargic, unable to complete assessment. CM to follow. SStaten RN CM
--- NOTE | 2021-11-18 11:40 | PN.HOSP_ITS ---
Documented by User: Jackie Steinberg NP, [employer]UCLE[employer] ENRICHMENT TECHNICIAN-C 11/18/21 12:11 Subjective Subjective Patient seen and examined. Drowsy during assessment. Awakens briefly during conversation/exam. Objective Data Objective Data Vital Signs: Vital Signs Temp Pulse Resp BP Pulse Ox 98.1 F 90 16 120/90 H 94 11/18/21 11:28 11/18/21 11:28 11/18/21 11:28 11/18/21 11:28 11/18/21 11:28 Oxygen Flow Rate (L/min) 7 Oxygen Delivery Method Nasal Cannula Weight: 203 lb 4.259 oz Body Mass Index (BMI) 33.5 Intake & Output: Intake and Output for Last 24 Hours 11/16/21 11/17/21 11/18/21 23:59 23:59 23:59 Intake Total 500 / 500 1286.95 / 1286.95 Output Total 60 / 60 Balance 500 / 500 1226.95 / 1226.95 Lab / Micro Data Result Diagrams: 11/18/21 07:55 11/18/21 02:54 Labs: Laboratory Results - last 24 hr 11/17/21 18:20: WBC 9.6, RBC 4.39, Hgb 13.3, Hct 44.1, MCV 100.5 H, MCH 30.3, MCHC 30.2 L, RDW Std Deviation 57.3 H, RDW Coeff of Kirstie 15.3 H, Plt Count 360, MPV 9.3, Immature Gran % (Auto) 0.400, Neut % (Auto) 85.8 H, Lymph % (Auto) 7.4 L, [place] % (Auto) 6.0, Eos % (Auto) 0.1, Baso % (Auto) 0.3, Absolute Neuts (auto) 8.2 H, Absolute Lymphs (auto) 0.71 L, Nucleated RBC % 0 11/17/21 18:20: Sodium 137, Potassium 5.1, Chloride 104, Carbon Dioxide 28.0, Anion Gap 5, BUN 18, Creatinine 2.27 H, Estim Creat Clear Calc 23.71, Est GFR (MDRD) Af Amer 29 L, Est GFR (MDRD) Non-Af 24 L, BUN/Creatinine Ratio 7.9 L, Glucose 163 H, Calcium 8.8, Total Bilirubin 0.30, Direct Bilirubin 0.13, AST 72 H, ALT 30, Alkaline Phosphatase 82, Troponin I High Sens 206 H*, Total Protein 7.7, Albumin 3.7, Globulin 4.0 11/17/21 18:20: Ethyl Alcohol < 3.0 11/17/21 18:20: PT 12.2, INR 1.0, APTT 24.0 L 11/17/21 18:25: Procalcitonin 0.13 H 11/17/21 19:51: Urine Opiates Screen POSITIVE H, Urine Methadone Screen NEGATIVE, Ur Barbiturates Screen NEGATIVE, Ur Phencyclidine Scrn NEGATIVE, Ur Amphetamines Screen NEGATIVE, U Methamphetamin-MDMA POSITIVE H, U Benzodiazepines Scrn NEGATIVE, Urine Cocaine Screen NEGATIVE, U Cannabinoids Screen NEGATIVE, Ur Drug Screen Comment 11/17/21 21:09: Magnesium 2.3, Troponin I High Sens 430 H* 11/17/21 22:36: POC Glucose 133 H 11/18/21 00:28: Troponin I High Sens 588 H* 11/18/21 02:54: Sodium 139, Potassium 4.7, Chloride 108 H, Carbon Dioxide 26.0, Anion Gap 5, BUN 20 H, Creatinine 1.51 H, Estim Creat Clear Calc 38.77, Est GFR (MDRD) Af Amer 46 L, Est GFR (MDRD) Non-Af 38 L, BUN/Creatinine Ratio 13.2, Glucose 163 H, Calcium 8.3 L, Total Bilirubin 0.30, AST 181 H, ALT 58 H, Alkaline Phosphatase 77, Total Protein 6.8, Albumin 3.3, Globulin 3.5, Albumin/Globulin Ratio 0.9, Triglycerides 56, Cholesterol 138, LDL Cholesterol 66, VLDL Cholesterol 11, HDL Cholesterol 61 11/18/21 02:54: APTT 179.0 H* 11/18/21 05:48: POC Glucose 165 H 11/18/21 06:29: POC Glucose 175 H 11/18/21 07:55: WBC 11.6 H, RBC 3.19 L, Hgb 9.6 L, Hct 30.2 L, MCV 94.7 D, MCH 30.1, MCHC 31.8 L D, RDW Std Deviation 52.4 H, RDW Coeff of Kirstie 14.9 H, Plt C ount 204, MPV 9.4, Immature Gran % (Auto) 0.500, Neut % (Auto) 89.6 H, Lymph % (Auto) 2.6 L, [place] % (Auto) 7.2, Eos % (Auto) 0.0, Baso % (Auto) 0.1, Absolute Neuts (auto) 10.4 H, Absolute Lymphs (auto) 0.30 L, Nucleated RBC % 0, Differential Comment COMMENT 11/18/21 07:55: Troponin I High Sens 456 H* 11/18/21 11:17: POC Glucose 208 H Micro: Microbiology 11/17/21 18:30 Nasal Secretion SARS-CoV-2 Antigen (Rapid) - Final Radiography Diagnostic Testing: Radiology Impression Chest X-Ray 11/17/21 18:50 IMPRESSION: No acute cardiopulmonary process. Electronically Signed: Gab Ann MD at 19:28 EST , Brain CT 11/17/21 18:52 IMPRESSION: 1. No acute findings. 2. Chronic infarcts. 3. Right temporal arachnoid cyst, mildly increased from the prior study. Electronically Signed: Pau Alexandre MD at 19:59 EST Reading Location ID and State: [id number] / Tel , Service support , Echocardiogram 11/17/21 21:22 Interpretation Summary Normal LV size. Left ventricular systolic function is normal. The estimated ejection fraction is 55 %. Stage 1 diastolic dysfunction. Pulmonary artery systolic pressure is 37 mmHg. Contrast injection was performed. Ordering Physician: Arlene Dooley Referring Physician: Jeanne Lagunas Performed By: Patt Paul, RDCS, RVT Physical Exam Const no apparent distress Orientation / Consciousness: awake, oriented to person, oriented to place, oriented to time and lethargic HEENT normocephalic Mouth: dry mucous membranes Eyes PERRL, EOMs intact bilaterally and conjunctivae normal Neck no lymphadenopathy Resp clear to auscultation bilaterally Auscultation: diminished lung sounds Cardio regular rate, regular rhythm and no murmurs Peripheral Pulses: pulses 2+ throughout GI normal to inspection, nondistended, normoactive bowel sounds, non-tender and non-distended Extremity normal to inspection Skin no rashes or lesions noted Lesions: no lesions Rashes: no rashes Trauma: no lacerations or abrasions Neuro CN's II-XII intact bilaterally, no focal motor deficits, no sensory deficits noted and deep tendon reflexes 2+ bilaterally Psych mental status grossly normal and affect normal Assessment & Plan Assessment/Plan (1) Episode of unresponsiveness: (2) Elevated troponin: PLAN: 1. Acute on chronic hypoxic respiratory failure secondary to exacerbation of COPD-unclear baseline O2 requirements however patient is prescribed chronic oxygen. IV Solu-Medrol. Albuterol and DuoNeb aerosols. Continue supplement oxygen to maintain O2 above 90%. Obtain ABG due to ongoing lethargy. 2. Indeterminate cardiac enzyme-cardiology following. Plan for heart cath 11/19/2021. On heparin drip. 3. Acute kidney injury-nephrotoxic regimen on hold. Improving with IV fluids. Trend BMP. 4. Metabolic encephalopathy-secondary to #1/#3. Treat underlying processes. ABG pending. Brain CT on admission unremarkable. Tox screen on admission positive for opiates and methamphetamine. Initially became more responsive with Narcan. 5. Normocytic anemia-likely reduced due to hemodilution. Check iron studies/stool for occult blood. Trend CBC. 6. History of nonobstructive CAD-echocardiogram with EF 55%, stage I diastolic dysfunction. 7. Chronic heart failure with preserved ejection fraction- 8. Hypertension-Lasix, losartan on hold. As needed IV hydralazine. 9. Hyperlipidemia-continue statin. 10. Type 2 diabetes [id number]-Eyea-Xoaal with sliding scale insulin. 11. Hypothyroidism-continue Synthroid. 12. Anxiety/depression-continue fluoxetine. 13. History of PE 14. GERD- continue PPI. DVT prophylaxis- SCDs, heparin gtt This patient was seen by Jackie Steinberg, RUDI-C under the supervision of Dr. Kwong. Time spent examining patient, reviewing data and subsequent management of care: 14 Minutes Documented by User: Dr. Juve Kwong, DO 11/18/21 12:50 Objective Data Lab / Micro Data Result Diagrams: 11/18/21 07:55 11/18/21 02:54 Charges/Coding Addendum Addendum: Patient was seen and examined today independently of Jackie Steinberg, she was admitted yesterday for what appeared to be an opiate overdose-this was not felt to be intentional, today she still appears groggy at times but is able to answer simple questions appropriately. Patient's troponin has elevated since her admission yesterday, I repeated another troponin at 8:00 this morning and it had come down to 456. I talked briefly with cardiology about seeing her in consultation, due to the patient's elevated creatinine, heart catheterization will not be performed until tomorrow. Patient understands she is going to undergo a cardiac catheterization-I discussed this with her and that she did not object to it. On examination she appeared in good health and spirits, she does not appear to be in any distress. Vital signs as documented. Skin warm and dry and without overt rashes. Neck without JVD, thyroid appears normal, trachea is midline, neck is supple. Lungs clear, normal air movement was noted. Heart exam notable for regular rhythm, normal sounds and absence of murmurs, rubs or gallops. Abdomen unremarkable and without evidence of organomegaly, masses, or abdominal aortic enlargement, bowel sounds are present in all 4 quadrants, no abdominal tenderness was noted. Extremities nonedematous, no cyanosis was noted, no clubbing was noted. Neuro: Cranial nerves II through XII are grossly intact, no focal motor deficits were noted, sensation to light touch and pinprick is intact, motor exam 5/5 throughout. Psych: Patient is alert and oriented x3, she is somewhat drowsy, she does not appear anxious or depressed, she does not appear agitated. Impression #1 acute on chronic hypoxic respiratory failure-patient is presently stable on nasal cannula oxygen at 7 L, continue to monitor pulse ox #2 non-STEMI type II-patient will undergo cardiac catheterization tomorrow if her kidney functions are improved, medication adjustments per cardiology at this time, patient's heparin drip was stopped at the direction of cardiology. Patient will have an echocardiogram performed today #3 acute kidney injury-patient's creatinine is improved today, continue with IV fluids #4 opiate overdose-not believed to be intentional, patient was not able to tell me which medication she takes at home at this time, tramadol is listed as one of her home medications. Administration of sedate of medications will be monitored while she is in the hospital due to her respiratory status and concern for fur ther respiratory embarrassment #5 type 2 diabetes-patient's blood sugars will be monitored, sliding scale insulin will be used as needed #6 cerebrovascular disease-patient will remain on aspirin at this time, her Plavix has been held at this time #7 chronic obstructive pulmonary disease with exacerbation-patient will continue on her IV Solu-Medrol and will receive aerosol treatments. I have reviewed Jackie Steinberg's progress note including her medical assessment and plan of care and with the above additions endorse it. Total clinical time spent addressing the patient's medical issues, reviewing all data, and collaboration with other individuals taking care of the patient: 16 minutes Visit Charges Inpatient E&M: 83057 Subs Hosp L2
[2021-11-18 12:05] LABS: Allen Test Positive; Base Excess -1 mmol/L (-2 to +2); Bicarbonate 24.3 mmol/L (22-26); Blood Gas Specimen Type ART; O2 Delivery Device Cannula; PO2 113 mmHG (75-100); SITE R Radial; SO2 98 % (95-99); Total Carbon Dioxide 26 mmol/L; pCO2 39.2 mmHg (35-45)
[2021-11-18 13:38] LABS: Iron 18 ug/dL (50-170); Iron Binding Capacity,Total 434 ug/dL (250-450); PERCENT IRON SATURATION 4.1 % (15.0-55.0)
[2021-11-18 14:01] LABS: Vitamin B12 370 pg/mL (211-911)
[2021-11-18] MEDS: Glucerna Shake 120 ML LIQUID PO ×3 (14:07→21:44)
[2021-11-18 17:00] LABS: Bedside Glucose 203 mg/dL (70-110)
[2021-11-18] MEDS: Montelukast 10 MG Tablet PO (21:44)
[2021-11-18] MEDS: Pravastatin 40 MG Tablet PO (21:44)
[2021-11-18 21:56] LABS: Bedside Glucose 185 mg/dL (70-110)
[2021-11-19] VITALS (28 sets, daily range): BP systolic 121–146; BP diastolic 87–106; PULSE 62–83; RESP 14–26; TEMP 36.2–37; O2SAT 90–95
[2021-11-19] MEDS: 0.9% Normal Saline 1,000 ML 100 ML IV ×2 (00:16→11:17)
[2021-11-19] MEDS: Ipratropium/Albuterol Sulfate 3 ML AMPUL.NEB INHALATION ×6 (00:30→19:55)
[2021-11-19 04:06] LABS: Absolute Lymphocyte Count 0.37 X10^3/uL (0.83-4.51); Absolute Neutrophil Count 8.7 X10^3/uL (2.0-7.7); Basophil# 0.01 X10^3/uL; Basophil% 0.1 % (0-1); Hematocrit 35.3 % (37-47); Hemoglobin 11.2 g/dL (12.0-15.0); Lymphocyte # 0.37 X10^3/ul (0.83-4.51); Lymphocyte % 3.9 % (19-41); Mean Corp Hgb Conc 31.7 g/dL (32-36); Mean Corpuscular Hgb 30.6 pg (27.0-32.0); Mean Corpuscular Volume 96.4 fL (81-99); Mean Platelet Vol. 9.5 fl (6.2-12.0); Monocyte# 0.43 X10^3/uL; Monocyte% 4.5 % (0-10); NRBC Flagged by Analyzer 0 % (0-5); Neutrophil # 8.67 X10^3/uL (2.7-7.7); Neutrophil % 90.8 % (47-70); POSITIVE DIFFERENTIAL YES; Platelet Count 223 K/mm3 (150-450); RBC Distribution Width CV 15.1 % (11.6-14.6); RBC Distribution Width SD 53.1 fl (35.1-43.9); Red Blood Count 3.66 M/mm3 (4.2-5.4); White Blood Count 9.6 K/mm3 (4.4-11.0)
[2021-11-19 04:12] LABS: Differential Indicated SCAN CRITERIA MET
[2021-11-19 04:32] LABS: Anion Gap 3 (5-15); BUN 14 mg/dL (7-18); BUN/Creat Ratio 19.9 RATIO (10-20); Calcium,Total 8.5 mg/dL (8.5-10.1); Chloride 109 mmol/L (98-107); EST Glomerular Filtration Rate 92 mL/min (>60); Est Glom Filt Rate - Afr Amer 111 mL/min (>60); Estimated Creatinine Clearance 83.63 ml/min; Glucose 195 mg/dL (74-106); Potassium 4.8 mmol/L (3.5-5.1); Sodium Level 139 mmol/L (136-145)
[2021-11-19 04:38] LABS: Differential Comment SCANNED
[2021-11-19] MEDS: Levothyroxine 75 MCG Tablet PO (06:35)
[2021-11-19] MEDS: Insulin Lispro 100 UNIT/ML INSULN.PEN SC ×4 (06:35→20:08)
[2021-11-19 06:46] LABS: Bedside Glucose 178 mg/dL (70-110)
--- NOTE | 2021-11-19 07:07 | EKG12_ITS ---
Test Reason : PRE HEAR CATH Blood Pressure : / mmHG Vent. Rate : 066 BPM Atrial Rate : 066 BPM P-R Int : 124 ms QRS Dur : 124 ms QT Int : 418 ms P-R-T Axes : 063 -10 -04 degrees QTc Int : 438 ms Normal sinus rhythm Right bundle branch block Abnormal ECG When compared with ECG of 17-NOV-2021 21:43, MANUAL COMPARISON REQUIRED, DATA IS UNCONFIRMED Confirmed by ELIZABETH MELO, CITLALY ([id number]), avid editor ZAC HALE ([id number]) on 11/20/2021 8:17:26 AM Referred By: NIKHIL Confirmed By:CITLALY JOHNSON MD
[2021-11-19] MEDS: 0.9% Normal Saline 1,000 ML 15 ML IV (08:00)
--- NOTE | 2021-11-19 08:58 | CL.D_ITS ---
Patient Name: TJ BIGGS Study Date: 11/19/2021 Performing: Tejas Berger MD Ht: 64.96 inches 165 cm : 1970 Wt: 209.44 lbs 95 kg Age: 51 Gender: female BSA: 2.02 PROCEDURE(S) PERFORMED DC01-([id number])LHC/COR/LV CLINICAL PROFILE AND INDICATIONS Indications: Suspected CAD Heart Failure: None Stress/Imaging Stress/Image Study Performed: No CAD Presentations: Symptom unlikely to be ischemic. CONCLUSIONS Normal coronary arteries Normal LV size, wall motion,and systolic function RECOMMENDATIONS Medical therapy DESCRIPTION OF PROCEDURE The patient arrived to the procedure lab. The risks and benefits of the procedure as well as a full d escription of our services here and current unavailability of surgical backup were fully explained to the patient and/or their significant other prior to the catheterization. The Timeout was completed, verifying the correct patient and procedure. The patient's procedural site was prepped and draped in the usual fashion. Local anesthetic was given subcutaneously to right radial region with Lidocaine 2% . Using a modified Seldinger technique, arterial access was obtained via the right radial artery, a 6 Fr sheath was inserted. Left Coronary Artery selective angiography was performed in multiple views u sing a 5 Fr. 4.0 Seymour catheter. Right Coronary Artery selective angiography was then performed in mu ltiple views using a 5 Fr. 4.0 Seymour catheter. Left Ventriculography was performed in DESOUZA projection using a 5 Fr. Pigtail catheter. LV to AO pullback pressures were then recorded.The arterial sheath was pulled and a TR Band was applied for hemostasis CORONARY ANGIOGRAPHY DOMINANCE: Right Dominant LEFT HEART ASSESSMENT Left Ventricular Ejection Fraction: by LV Gram 60 % Normal LV wall motion Normal Left Ventricular systolic function Normal Left Ventricular systolic function LEFT MAIN: Angiographically normal LEFT ANTERIOR DESCENDING ARTERY: Angiographically normal CIRCUMFLEX ARTERY: Angiographically normal RIGHT CORONARY ARTERY: Angiographically normal COMPLICATIONS No Complications PROCEDURE MEDICATIONS Fentanyl 50 mcg IV Versed 1 mg IV Oxygen: 7 L/min via nasal cannula Baby Aspirin (81mg) 4 Tabs PO @ 11/19/2021 08:38:09 Heparin given IA 11/19/2021 08:37:54 Verapamil 2.5mg, Ntg 100mcgs, 3000 units of Heparin given IA 11/19/2021 08:37:54 SUMMARY OF HEMODYNAMIC DATA Time AIR REST ECG 08:16:53 AO 122/87 (105) SA 08:40:47 LV 119/15, 22 08:47:00 LV 136/21, 28 08:47:06 LV 120/22, 31 08:47:43 LV 134/21, 29 08:49:08 LVp 128/21, 33 08:49:14 AOp 132/88 (108) 08:49:19 Signed By Tejas Berger MD On 11/19/2021 08:57:14 Tejas Berger MD
--- NOTE | 2021-11-19 08:58 | PCM.PN.CARD ---
Subjective Subjective Patient seen and evaluated. Objective Data Vital Signs: Vital Signs Temp Pulse Resp BP Pulse Ox 97.1 F L 82 26 H 125/88 H 92 11/19/21 03:08 11/19/21 07:20 11/19/21 07:20 11/19/21 03:08 11/19/21 07:20 Oxygen Flow Rate (L/min) 7 Oxygen Delivery Method Nasal Cannula Weight: 208 lb 12.444 oz Body Mass Index (BMI) 33.5 Intake & Output: Intake and Output for Last 24 Hours 11/17/21 11/18/21 11/19/21 23:59 23:59 23:59 Intake Total 500 / 500 2705.28 / 2705.28 2065.33 / 206.33 Output Total 360 / 460 150 / 150 Balance 500 / 500 2345.28 / 2245.28 1915.33 / 1914.33 Lab / Micro Data Result Diagrams: 11/19/21 03:10 11/19/21 03:10 Labs: Laboratory Results - last 24 hr 11/18/21 02:54: Iron 18 L, TIBC 434, Iron Saturation 4.1 L, Folate 37.50 11/18/21 07:55: Differential Comment COMMENT 11/18/21 11:17: POC Glucose 208 H 11/18/21 12:43: Vitamin B12 370 11/18/21 16:47: POC Glucose 203 H 11/18/21 21:41: POC Glucose 185 H 11/19/21 03:10: WBC 9.6, RBC 3.66 L, Hgb 11.2 L, Hct 35.3 L, MCV 96.4, MCH 30.6, MCHC 31.7 L, RDW Std Deviation 53.1 H, RDW Coeff of Kirstie 15.1 H, Plt Count 223, MPV 9.5, Immature Gran % (Auto) 0.700, Neut % (Auto) 90.8 H, Lymph % (Auto) 3.9 L, [place] % (Auto) 4.5, Eos % (Auto) 0.0, Baso % (Auto) 0.1, Absolute Neuts (auto) 8.7 H, Absolute Lymphs (auto) 0.37 L, Nucleated RBC % 0, Differential Comment SCANNED 11/19/21 03:10: Sodium 139, Potassium 4.8, Chloride 109 H, Carbon Dioxide 27.0, Anion Gap 3 L, BUN 14, Creatinine 0.70, Estim Creat Clear Calc 83.63, Est GFR (MDRD) Af Amer 111, Est GFR (MDRD) Non-Af 92, BUN/Creatinine Ratio 19.9, Glucose 195 H, Calcium 8.5 11/19/21 06:34: POC Glucose 178 H Micro: Microbiology 11/18/21 22:35 Stool Stool Occult Blood (ERIN) - Final Occult Blood Positive ABG Data ABG results: ABG 11/18/21 12:00 Specimen Type ART Sample Site R Radial pH 7.40 Bicarbonate Actual 24.3 Total CO2 26 Base Excess -1 O2 Saturation 98 ABG pCO2 39.2 ABG pO2 113 H Rafael Test Positive O2 Delivery Device Cannula Liter Flow 7.0 Cardiology Labs/Tests 11/18/21 02:54: Iron 18 L, TIBC 434, Iron Saturation 4.1 L 11/18/21 12:00: pH 7.40, Bicarbonate Actual 24.3, Base Excess -1, O2 Saturation 98, ABG pCO2 39.2, ABG pO2 113 H, Rafael Test Positive 11/19/21 03:10: WBC 9.6, RBC 3.66 L, Hgb 11.2 L, Hct 35.3 L, MCV 96.4, MCH 30.6, MCHC 31.7 L, Plt Count 223, MPV 9.5, Immature Gran % (Auto) 0.700, Neut % (Auto) 90.8 H, Lymph % (Auto) 3.9 L, [place] % (Auto) 4.5, Eos % (Auto) 0.0, Baso % (Auto) 0.1, Absolute Neuts (auto) 8.7 H, Nucleated RBC % 0 11/19/21 03:10: Sodium 139, Potassium 4.8, Chloride 109 H, Carbon Dioxide 27.0, Anion Gap 3 L, BUN 14, Creatinine 0.70, Est GFR (MDRD) Af Amer 111, Est GFR (MDRD) Non-Af 92, BUN/Creatinine Ratio 19.9, Glucose 195 H, Calcium 8.5 Rhythm: EKG: ECHO: Stress Test: Cardiac Cath: PCI: CT Surgery: Holter monitor: EPS: PPM: CXR: Chest CT Scan: Radiography Diagnostic Testing: Radiology Impression Echocardiogram 01/30/22 21:22 Interpretation Summary Normal LV size. Left ventricular systolic function is normal. The estimated ejection fraction is 55 %. Stage 1 diastolic dysfunction. Pulmonary artery systolic pressure is 37 mmHg. Contrast injection was performed. Ordering Physician: Arlene Dooley Referring Physician: Jeanne Lagunas Performed By: Patt Paul, GIGI, RVT Physical Exam Const alert, oriented x3 and no apparent distress General Appearance: cooperative HEENT hearing grossly normal bilaterally Head and Scalp: atraumatic Eyes EOMs intact bilaterally Neck General: normal visual inspection Chest inspection of chest normal and palpation of chest normal Resp normal respiratory effort Auscultation: clear to auscultation bilaterally Cardio regular rate, regular rhythm, S1 normal heart sound and S2 normal heart sound Jugular Venous Distention: JVD GI normal to inspection, nondistended, normoactive bowel sounds Extremity normal capillary refill and no pedal edema Peripheral Pulses: Yes pulses 2+ throughout and femoral pulses present Skin no rashes or lesions noted Neuro oriented x3 and CN's II-XII intact bilaterally Psych Appearance: grossly normal and appropriate Assessment & Plan Assessment/Plan (1) Elevated troponin: PLAN: Patient was noted to have elevated cardiac enzymes. The etiology of which is unclear. I suspect the above is demand ischemia. Cardiac catheterization today demonstrated nonobstructive coronary arteries and preserved ejection fraction. Would recommend medical management. (2) HTN (hypertension): PLAN: She appears to have a history of hypertension. Due to her renal dysfunction I would recommend the use of a calcium channel donna dihydropyridine. Her echocardiogram demonstrated preserved left ventricular systolic function. Thank you for allowing me to participate in the care of your patient. Please don't hesitate to call if any issues arise.
--- NOTE | 2021-11-19 11:05 | CASEMGMT ---
KYLEIGH BERNSTEIN Face to Face with patient for initial transition planning/care coordination assessment. RN AMANDEEP introduced self and role at [facility]. Patient lying in bed, alert and oriented. Patient willing to participate in assessment and is able to answer all questions appropriately. Care providers, pharmacy, and demographics verified. Patient wishes to discharge home with possible HHC for therapy. Patient states she has no further needs or concerns at this time. CM to follow for discharge planning needs that may arise. PCP: Janneth Specialists: Ev metal fabricating supervisor [facility]erred [facility]acy: [facility] Insurance: ASHOK Prescription Benefit: yes Living Will/HPOA: yes, brother Catarino Mac LNOK: brother, daughter, mother Living Arrangements: Patient lives alone in a 4th floor apartment with elevator. Patient states she is normally independent for self-care. Patient states he was caring for mother who is currently on hospice. Transportation: brother, daughter DME/HHC: Patient states she has walker, nebulizer, and home oxygen with portability at 2lpm through [employer]. Patient states brother will be able to bring portable oxygen when picking up patient. Patient states she has Passport sevices and has been waiting for aide services. Patient states she has previously had [facility]. No previous SNF. RN AMANDEEP discussed possible HHC at discharge with patient and agreeable. CM to provide list of HHC agencies. Disposition Plan: Patient to discharge home with possible HHC, family support, and follow-up plans in place. Sara CHE, RN, CM
[2021-11-19] MEDS: Glucerna Shake 120 ML LIQUID PO ×4 (11:15→20:04)
[2021-11-19] MEDS: Pantoprazole Sodium 20 MG Tablet PO (11:15)
[2021-11-19] MEDS: FLUoxetine 20 MG Capsule 60 MG PO (11:16)
--- NOTE | 2021-11-19 11:56 | CASEMGMT ---
Call to [facility] and pt's home oxygen order is for 2L continuous and Madisyn ARIZMENDI aware that pt will need to be tested on this. Pt was provided a list of [facility] providers including quality and resource use data and consistent with the patient?s preferred geographic region, medical needs, and insurance network. CM to follow. Chelsey ARIZMENDI CM
[2021-11-19 12:21] LABS: Bedside Glucose 237 mg/dL (70-110)
--- NOTE | 2021-11-19 14:11 | PN.HOSP_ITS ---
Documented by User: Jackie Steinberg NP, MANAGING CONSULTANT CLINICAL PROFESSOR-C 11/19/21 14:18 Subjective Subjective Patient seen and examined. Mental status/alertness improved. Reports increased shortness of breath and requiring increased oxygen. Wheezing on assessment. Denies cough, fever, chills. Objective Data Objective Data Vital Signs: Vital Signs Temp Pulse Resp BP Pulse Ox 98.3 F 71 16 131/90 H 92 11/19/21 11:59 11/19/21 13:16 11/19/21 13:16 11/19/21 11:59 11/19/21 11:59 Oxygen Flow Rate (L/min) 7 Oxygen Delivery Method Nasal Cannula Weight: 208 lb 12.444 oz Body Mass Index (BMI) 33.5 Intake & Output: Intake and Output for Last 24 Hours 11/17/21 11/18/21 11/19/21 23:59 23:59 23:59 Intake Total 500 / 500 2705.28 / 2705.28 2664.33 / 2664.33 Output Total 360 / 460 150 / 150 Balance 500 / 500 2345.28 / 2245.28 2514.33 / 2514.33 Lab / Micro Data Result Diagrams: 11/19/21 03:10 11/19/21 03:10 Labs: Laboratory Results - last 24 hr 11/18/21 16:47: POC Glucose 203 H 11/18/21 21:41: POC Glucose 185 H 11/19/21 03:10: WBC 9.6, RBC 3.66 L, Hgb 11.2 L, Hct 35.3 L, MCV 96.4, MCH 30.6, MCHC 31.7 L, RDW Std Deviation 53.1 H, RDW Coeff of Kirstie 15.1 H, Plt Count 223, MPV 9.5, Immature Gran % (Auto) 0.700, Neut % (Auto) 90.8 H, Lymph % (Auto) 3.9 L, [place] % (Auto) 4.5, Eos % (Auto) 0.0, Baso % (Auto) 0.1, Absolute Neuts (auto) 8.7 H, Absolute Lymphs (auto) 0.37 L, Nucleated RBC % 0, Differential Comment SCANNED 11/19/21 03:10: Sodium 139, Potassium 4.8, Chloride 109 H, Carbon Dioxide 27.0, Anion Gap 3 L, BUN 14, Creatinine 0.70, Estim Creat Clear Calc 83.63, Est GFR (MDRD) Af Amer 111, Est GFR (MDRD) Non-Af 92, BUN/Creatinine Ratio 19.9, Glucose 195 H, Calcium 8.5 11/19/21 06:34: POC Glucose 178 H 11/19/21 12:09: POC Glucose 237 H Micro: Microbiology 11/18/21 22:35 Stool Stool Occult Blood (ERIN) - Final Occult Blood Positive 11/17/21 18:30 Nasal Secretion SARS-CoV-2 Antigen (Rapid) - Final Physical Exam Const alert, oriented x3 and no apparent distress Orientation / Consciousness: awake, oriented to person, oriented to place and oriented to time HEENT normocephalic and moist oral mucous membranes Eyes PERRL, EOMs intact bilaterally and conjunctivae normal Neck no lymphadenopathy Resp Auscultation: rhonchi, wheezes and diminished lung sounds Cardio regular rate, regular rhythm and no murmurs Peripheral Pulses: pulses 2+ throughout GI normal to inspection, nondistended, normoactive bowel sounds, non-tender and non-distended Extremity normal to inspection Skin no rashes or lesions noted Lesions: no lesions Rashes: no rashes Trauma: no lacerations or abrasions Neuro CN's II-XII intact bilaterally, no focal motor deficits, no sensory deficits noted and deep tendon reflexes 2+ bilaterally Psych mental status grossly normal and affect normal Assessment & Plan Assessment/Plan (1) COPD with acute exacerbation: PLAN: 1. Acute on chronic hypoxic respiratory failure secondary to exacerbation of COPD-IV Solu-Medrol. Albuterol and DuoNeb aerosols. Continue supplement oxygen to maintain O2 above 90%. Will need new oxygen order at discharge due to increased requirements. Home oxygen testing prior to discharge. 2. Indeterminate cardiac enzyme, demand ischemia secondary to hypoxia-cardiology following. Heart cath unremarkable. 3. Acute kidney injury-resolved with IV fluids. 4. Metabolic encephalopathy-secondary to #1/#3 as well as polypharmacy. Brain CT on admission unremarkable. Tox screen on admission positive for opiates and methamphetamine. Mental status improved. 5. Normocytic anemia-likely reduced due to hemodilution. Iron studies consistent with iron deficiency. IV iron x2. Continue oral iron supplementation at discharge. 6. History of nonobstructive CAD-echocardiogram with EF 55%, stage I diastolic dysfunction. 7. Chronic heart failure with preserved ejection fraction-stable. 8. Hypertension-Lasix, losartan on hold. As needed IV hydralazine. 9. Hyperlipidemia-continue statin. 10. Type 2 diabetes [id number] with sliding scale insulin. 11. Hypothyroidism-continue Synthroid. 12. Anxiety/depression-continue fluoxetine. 13. History of PE 14. GERD- continue PPI. DVT prophylaxis- SCDs This patient was seen by ALFRED Ventura under the supervision of Dr. Kwong. Time spent examining patient, reviewing data and subsequent management of care: 13 Minutes Documented by User: Dr. Juve Kwong, 11/19/21 18:23 Objective Data Lab / Micro Data Result Diagrams: 11/19/21 03:10 11/19/21 03:10 Charges/Coding Addendum Addendum: Patient was seen and examined today independently of Jackie Steinberg, she underwent a heart catheterization today that did not show any evidence of occlusive coronary disease. Patient's oxygen requirement however has remained high today-she is currently on 6 L of oxygen via nasal cannula. On examination she appeared in good health and spirits, she does not appear to be in any distress. Vital signs as documented. Skin warm and dry and without overt rashes. Neck without JVD, thyroid appears normal, trachea is midline, neck is supple. Lungs-expiratory wheezes are noted bilaterally, decreased breath sounds are noted bilaterally. Heart exam notable for regular rhythm, normal sounds and absence of murmurs, rubs or gallops. Abdomen unremarkable and without evidence of organomegaly, masses, or abdominal aortic enlargement, bowel sounds are present in all 4 quadrants, no abdominal tenderness was noted. Extremities nonedematous, no cyanosis was noted, no clubbing was noted. Neuro: Cranial nerves II through XII are grossly intact, no focal motor deficits were noted, sensation to light touch and pinprick is intact, motor exam 5/5 throughout. Psych: Patient is alert and oriented x3, she does not appear anxious or depress ed, she does not appear agitated. Impression:#1 acute on chronic hypoxic respiratory failure-patient is presently stable on nasal cannula oxygen at 6 L, continue to monitor pulse ox #2 non-STEMI type II-no intervention is needed at this time, patient will remain on her current medication #3 acute kidney injury-resolved, patient's creatinine today was 0.7 #4 opiate overdose-not believed to be intentional, patient was not able to tell me which medication she takes at home at this time, tramadol is listed as one of her home medications. Administration of sedate of medications will be monitored while she is in the hospital due to her respiratory status and concern for further respiratory embarrassment #5 type 2 diabetes-patient's blood sugars will be monitored, sliding scale insulin will be used as needed #6 cerebrovascular disease-patient will remain on aspirin at this time, her Plav ix will be restarted #7 chronic obstructive pulmonary disease with exacerbation-patient will continue on her IV Solu-Medrol and will receive aerosol treatments. She will be evaluated again tomorrow for possible discharge home if her medical condition stabilizes I have reviewed Jackieanny Steinberg's progress note including her medical assessment and plan of care and endorse it with the above additions. Total clinical time spent on this patient including addressing the patient's medical issues, reviewing all of her medical data, and collaboration with the patient's care team: 18 minutes Visit Charges Inpatient E&M: 73187 Subs Hosp L2
--- NOTE | 2021-11-19 14:25 | RAD_ITS ---
STUDY: X-RAY CHEST REASON FOR EXAM: Female, 51 years old. Hypoxia TECHNIQUE: Single AP portable view of the chest. COMPARISON: Comparison is made with prior study dated 11/17/2021. FINDINGS: EKG electrodes are seen. The lungs are clear and expanded. There is no demonstrated pleural abnormality. Normal size heart. Normal mediastinum and lonny. Normal visualized pulmonary arteries. Normal visualized aortic arch and descending thoracic aorta. There are diffuse degenerative changes of the visualized thoracic spine. Normal visualized ribs, clavicles, and shoulders. There is no demonstrated abnormality of the visualized soft tissue structures of the upper abdomen. RAD/Chest 1 View (Portable) IMPRESSION: No acute abnormality is seen. Electronically Signed: Brian Casey MD at 14:41 EST ,
[2021-11-19] MEDS: 0.9% Saline Lock 10 ML Syringe IV ×3 (14:33→20:05)
--- NOTE | 2021-11-19 15:30 | CASEMGMT ---
Pt has very few choices for [facility] and states no preference. Referral faxed to [facility]. CM to follow. Chelsey ARIZMENDI CM
[2021-11-19] MEDS: Ferrous Sulfate 325 MG Tablet PO (18:35)
[2021-11-19 18:41] LABS: Bedside Glucose 272 mg/dL (70-110)
[2021-11-19] MEDS: Clopidogrel Bisulfate 75 MG Tablet PO (18:41)
[2021-11-19] MEDS: Montelukast 10 MG Tablet PO (20:04)
[2021-11-19] MEDS: Pravastatin 40 MG Tablet PO (20:05)
[2021-11-19 20:25] LABS: Bedside Glucose 208 mg/dL (70-110)
[2021-11-20] VITALS (12 sets, daily range): BP systolic 134–142; BP diastolic 89–94; PULSE 65–89; RESP 16–20; TEMP 36.2–36.7; O2SAT 86–97
[2021-11-20 04:50] LABS: Absolute Lymphocyte Count 0.66 X10^3/uL (0.83-4.51); Absolute Neutrophil Count 7.1 X10^3/uL (2.0-7.7); Basophil# 0.01 X10^3/uL; Basophil% 0.1 % (0-1); Hematocrit 34.4 % (37-47); Hemoglobin 11.2 g/dL (12.0-15.0); Lymphocyte # 0.66 X10^3/ul (0.83-4.51); Lymphocyte % 7.9 % (19-41); Mean Corp Hgb Conc 32.6 g/dL (32-36); Mean Corpuscular Hgb 30.8 pg (27.0-32.0); Mean Corpuscular Volume 94.5 fL (81-99); Mean Platelet Vol. 9.7 fl (6.2-12.0); Monocyte# 0.59 X10^3/uL; NRBC Flagged by Analyzer 0.2 % (0-5); Neutrophil # 7.09 X10^3/uL (2.7-7.7); Neutrophil % 84.5 % (47-70); Platelet Count 231 K/mm3 (150-450); RBC Distribution Width CV 15.1 % (11.6-14.6); RBC Distribution Width SD 52.9 fl (35.1-43.9); Red Blood Count 3.64 M/mm3 (4.2-5.4); White Blood Count 8.4 K/mm3 (4.4-11.0)
[2021-11-20 05:09] LABS: Anion Gap 2 (5-15); BUN 16 mg/dL (7-18); BUN/Creat Ratio 29.4 RATIO (10-20); Chloride 110 mmol/L (98-107); Creatinine, Serum 0.54 mg/dL (0.55-1.02); EST Glomerular Filtration Rate 124 mL/min (>60); Est Glom Filt Rate - Afr Amer 150 mL/min (>60); Estimated Creatinine Clearance 108.41 ml/min; Glucose 162 mg/dL (74-106); Potassium 4.8 mmol/L (3.5-5.1); Sodium Level 139 mmol/L (136-145)
[2021-11-20] MEDS: Levothyroxine 75 MCG Tablet PO (05:41)
[2021-11-20 05:50] LABS: Bedside Glucose 138 mg/dL (70-110)
[2021-11-20] MEDS: Ipratropium/Albuterol Sulfate 3 ML AMPUL.NEB INHALATION ×3 (07:06→14:26)
[2021-11-20] MEDS: Clopidogrel Bisulfate 75 MG Tablet PO (08:57)
[2021-11-20] MEDS: Ferrous Sulfate 325 MG Tablet PO ×2 (08:57→11:22)
[2021-11-20] MEDS: FLUoxetine 20 MG Capsule 60 MG PO (08:57)
[2021-11-20] MEDS: Pantoprazole Sodium 20 MG Tablet PO (08:57)
--- NOTE | 2021-11-20 10:10 | PCM.DC ---
Discharge Instructions Diet Discharge Diet: Low fat / Low cholesterol and Carb Control Diet Activity Discharge Activity: Return to Normal Activity Dressing / Incision Call your doctor if you observe: Shortness of breath, Dizziness and Chest pain Follow Up Care Test Results: Test results from this visit will be discussed in further detail at your follow-up appointment, if applicable. Discharge Plan Admission Admit Date/Time: 11/17/21 20:39 Primary Reason for Your Visit: exacerbation of COPD, hypoxia Attending Provider: Juve Kwong Primary Care Provider: Jeanne Lagunas Consulting Providers: Tejas Berger Discharge Orders/Prescriptions Prescriptions: New ferrous sulfate [FeroSul] 325 mg (65 mg iron) Tablet 325 mg PO TIDCM 30 Days Qty: 90 RF: 0 prednisone 10 mg tablet See Taper mg PO DAILY Qty: 30 RF: 0 Continued pravastatin 10 mg Tablet 10 mg PO DAILY RF: 0 omeprazole 20 mg capsule,delayed release(DR/EC) 20 mg PO DAILY RF: 0 trazodone 100 mg tablet 200 mg PO QHS RF: 0 aspirin 81 mg tablet,delayed release (DR/EC) 81 mg PO DAILY RF: 0 buspirone 30 mg tablet 30 mg PO BID RF: 0 cetirizine 10 mg tablet 10 mg PO DAILY RF: 0 clopidogrel 75 mg tablet 75 mg PO DAILY RF: 0 calcium carbonate [Calcium 600] 600 mg calcium (1,500 mg) Tablet 600 mg PO DAILY RF: 0 fluoxetine 20 mg capsule 60 mg PO DAILY RF: 0 furosemide 40 mg Tablet 40 mg PO DAILY RF: 0 metformin 500 mg Tablet 500 mg PO BID RF: 0 ipratropium-albuterol 0.5 mg-3 mg(2.5 mg base)/3 mL Solution For Nebulization 3 ml INHALATION TID RF: 0 levothyroxine 75 mcg Tablet 75 mcg PO DAILY RF: 0 losartan 25 mg Tablet 25 mg PO DAILY RF: 0 folic acid 1 mg Tablet 1 mg PO DAILY RF: 0 montelukast 10 mg Tablet 10 mg PO QHS RF: 0 albuterol sulfate 90 mcg/actuation HFA aerosol inhaler 2 puff INHALATION Q4H PRN (Reason: Shortness Of Breath Or Wheezing) RF: 0 Dulera 200-5 mcg/actuation HFA aerosol inhaler 2 inh INHALATION BID RF: 0 Incruse Ellipta 62.5 mcg/actuation blister with device 1 inh INHALATION DAILY RF: 0 clonazepam 0.5 mg Tablet 0.5 mg PO DAILY PRN (Reason: Anxiety) RF: 0 albuterol sulfate 2.5 mg /3 mL (0.083 %) Solution For Nebulization 2.5 mg INHALATION Q4H PRN (Reason: copd) RF: 0 Daliresp 250 mcg Tablet 250 mcg PO DAILY RF: 0 ondansetron 8 mg Tablet,Disintegrating 8 mg PO Q12H PRN (Reason: Nausea) RF: 0 potassium chloride 20 mEq Tablet Extended Release 20 meq PO BID RF: 0 pyridoxine (vitamin B6) [Vitamin B-6] 250 mg Tablet 250 mg PO DAILY RF: 0 calcium citrate 200 mg (950 mg) Tablet 600 mg PO BID RF: 0 cholecalciferol (vitamin D3) [Vitamin D3] 125 mcg (5,000 unit) Tablet 125 mcg PO QWEEK RF: 0 tizanidine 4 mg Tablet 4 mg PO Q8H PRN (Reason: Muscle Spasm) RF: 0 Changed gabapentin 600 mg Tablet 300 mg PO BID Qty: 0 RF: 0 Discontinued tramadol 50 mg Tablet 50 mg PO Q8H PRN (Reason: Pain) RF: 0 Referrals / Follow Up: Jeanne Lagunas MD [Primary Care Provider] - In 1 Week Servando Carreno MD [STAFF PHYSICIAN] - Within 2 Weeks Disposition Disposition (needs filled in before D/C Order can be placed): Home, Self Care
--- NOTE | 2021-11-20 10:26 | DS.PCM_ITS ---
Documented by User: Jackie Steinberg NP, RISK MANAGEMENT MANAGER-C 11/20/21 10:36 Providers Date of Admission: 11/17/21 Date of Discharge: 11/20/21 Primary Care Physician: Dr. Jeanne Lagunas MD Consultations 11/18/21 07:29 Consult: Cardiology Routine Consulting Provider: Tejas Berger Reason for Consult: NSTEMI EMERGENT Consult: No MD Notified: Yes Date Notified: 11/18/21 Time Notified: 07:29 Method of Notification: Verbal Reason For Visit: COPD EXAC, ACUTE ON CHRONIC RESP FAILURE, OPIATE Diagnosis Discharge Diagnosis (1) COPD with acute exacerbation: Status: Chronic Code(s): J44.1 - Chronic obstructive pulmonary disease with (acute) exacerbation Medications at Discharge Home Medications Dulera 2 inh INHALATION BID 03/17/21 Incruse Ellipta 1 inh INHALATION DAILY 03/17/21 albuterol sulfate 2 puff INHALATION Q4H PRN 03/17/21 aspirin 81 mg PO DAILY 03/17/21 buspirone 30 mg PO BID 03/17/21 calcium carbonate [Calcium 600] 600 mg PO DAILY 03/17/21 cetirizine 10 mg PO DAILY 03/17/21 clopidogrel 75 mg PO DAILY 03/17/21 fluoxetine 60 mg PO DAILY 03/17/21 folic acid 1 mg PO DAILY 03/17/21 furosemide 40 mg PO DAILY 03/17/21 ipratropium-albuterol 3 ml INHALATION TID 03/17/21 levothyroxine 75 mcg PO DAILY 03/17/21 losartan 25 mg PO DAILY 03/17/21 metformin 500 mg PO BID 03/17/21 montelukast 10 mg PO QHS 03/17/21 pravastatin 10 mg PO DAILY 03/17/21 trazodone 200 mg PO QHS 03/17/21 clonazepam 0.5 mg PO DAILY PRN 07/14/21 Daliresp 250 mcg PO DAILY 11/19/21 albuterol sulfate 2.5 mg INHALATION Q4H PRN 11/19/21 calcium citrate 600 mg PO BID 11/19/21 cholecalciferol (vitamin D3) [Vitamin D3] 125 mcg PO QWEEK 11/19/21 ondansetron 8 mg PO Q12H PRN 11/19/21 potassium chloride 20 meq PO BID 11/19/21 pyridoxine (vitamin B6) [Vitamin B-6] 250 mg PO DAILY 11/19/21 tizanidine 4 mg PO Q8H PRN 11/19/21 ferrous sulfate [FeroSul] 325 mg PO TIDCM 30 Days #90 tab 11/20/21 gabapentin 300 mg PO BID #0 tab 11/20/21 pantoprazole [Protonix] 40 mg PO BID #60 tab 11/20/21 prednisone See Taper PO DAILY #30 tab 11/20/21 Hospital Course Operations None Procedures 2-D Echocardiogram and Cardiac catheterization Summary of Care Provided Hospital Course: Patient is a 51-year-old male admitted 11/17/2021 due to episode of unresponsiveness. 1. Acute on chronic hypoxic respiratory failure secondary to exacerbation of COPD-IV Solu-Medrol during admission. Continue home aerosol regimen continue supplement oxygen to maintain O2 above 90%. Prednisone taper at discharge. F ollow-up with pulmonary medicine in 2 weeks. 2. Indeterminate cardiac enzyme, demand ischemia secondary to hypoxia-cardiology following. Heart cath unremarkable. 3. Acute kidney injury-resolved with IV fluids. 4. Metabolic encephalopathy-secondary to #1/#3 as well as polypharmacy. Brain CT on admission unremarkable. Tox screen on admission positive for opiates and methamphetamine. Mental status improved. Recommend reduction in sedating regimen at discharge. 5. Normocytic anemia-likely reduced due to hemodilution. Iron studies consistent with iron deficiency. IV iron x3. Continue oral iron supplementation at discharge. Stool positive for occult blood. Will increase PPI. Follow-up with PCP in 1 week. May need referral to GI/surgery for further outpatient evaluation. 6. History of nonobstructive CAD-heart cath unremarkable. 7. Chronic heart failure with preserved ejection fraction-stable. Echocardiogram with EF 55%, stage I diastolic dysfunction. 8. Hypertension-continue home losartan, Lasix. 9. Hyperlipidemia-continue statin. 10. Type 2 diabetes mellitus-continue home oral regimen. 11. Hypothyroidism-continue Synthroid. 12. Anxiety/depression-continue fluoxetine. 13. History of PE 14. GERD- continue PPI. Physical Exam Const alert, oriented x3 and no apparent distress Orientation / Consciousness: awake, oriented to person, oriented to place and oriented to time HEENT normocephalic and moist oral mucous membranes Eyes PERRL, EOMs intact bilaterally and conjunctivae normal Neck no lymphadenopathy Resp Auscultation: Diminished, significant improvement in expiratory wheeze. Minimal wheezing on auscultation. Cardio regular rate, regular rhythm and no murmurs Peripheral Pulses: pulses 2+ throughout GI normal to inspection, nondistended, normoactive bowel sounds, non-tender and non-distended Extremity normal to inspection Skin no rashes or lesions noted Lesions: no lesions Rashes: no rashes Trauma: no lacerations or abrasions Neuro CN's II-XII intact bilaterally, no focal motor deficits, no sensory deficits noted and deep tendon reflexes 2+ bilaterally Psych mental status grossly normal and affect normal Patient seen and examined prior to discharge. Physical assessment as noted above. Patient is stable for discharge with follow up recommendations as noted above. This patient was seen by ALFRED Ventura under the supervision of Dr. Cristina winchester. Time spent examining patient, reviewing data and subsequent management of care: 15 Minutes Weight / BMI Weight Weight: 210 lb 12.191 oz Body Mass Index (BMI) 33.5 ABG / Lab / Microbiology Data Result Diagrams: 11/20/21 03:47 11/20/21 03:47 Laboratory: Laboratory Results - last 24 hr 11/19/21 12:09: POC Glucose 237 H 11/19/21 18:37: POC Glucose 272 H 11/19/21 20:08: POC Glucose 208 H 11/20/21 03:47: WBC 8.4, RBC 3.64 L, Hgb 11.2 L, Hct 34.4 L, MCV 94.5, MCH 30.8, MCHC 32.6, RDW Std Deviation 52.9 H, RDW Coeff of Kirstie 15.1 H, Plt Count 231, MPV 9.7, Immature Gran % (Auto) 0.500, Neut % (Auto) 84.5 H, Lymph % (Auto) 7.9 L, Gulf % (Auto) 7.0, Eos % (Auto) 0.0, Baso % (Auto) 0.1, Absolute Neuts (auto) 7.1, Absolute Lymphs (auto) 0.66 L, Nucleated RBC % 0.2 11/20/21 03:47: Sodium 139, Potassium 4.8, Chloride 110 H, Carbon Dioxide 27.0, Anion Gap 2 L, BUN 16, Creatinine 0.54 L, Estim Creat Clear Calc 108.41, Est GFR (MDRD) Af Amer 150, Est GFR (MDRD) Non-Af 124, BUN/Creatinine Ratio 29.4 H, Glucose 162 H, Calcium 9.0 11/20/21 05:40: POC Glucose 138 H Microbiology: Microbiology 11/17/21 18:35 Blood Culture (Wb) - Left Hand Blood Culture - Preliminary No growth in 48 hours. 11/17/21 21:14 Blood Culture (Wb) - Right Hand Blood Culture - Preliminary No growth in 48 hours. 11/18/21 22:35 Stool Stool Occult Blood (ERIN) - Final Occult Blood Positive 11/17/21 18:30 Nasal Secretion SARS-CoV-2 Antigen (Rapid) - Final Radiography Diagnostic Testing: Radiology Impression Chest X-Ray 11/19/21 14:25 IMPRESSION: No acute abnormality is seen. Electronically Signed: Brian Casey MD at 14:41 EST Reading Location ID and State: [address] [place] [address] , Service support , D/C Instructions Discharge Diet: Low fat / Low cholesterol and Carb Control Diet Call your doctor if you observe: Shortness of breath, Dizziness and Chest pain Meaningful Use Info Meaningful Use Diagnoses (Choose all that apply): None applicable Discharge Plan Admission Admit Date/Time: 11/17/21 20:39 Primary Reason for Your Visit: exacerbation of COPD, hypoxia Attending Provider: Juve Kwong Primary Care Provider: Jeanne Lagunas Consulting Providers: Tejas Berger Discharge Orders/Prescriptions Prescriptions: New ferrous sulfate [FeroSul] 325 mg (65 mg iron) Tablet 325 mg PO TIDCM 30 Days Qty: 90 RF: 0 prednisone 10 mg tablet See Taper mg PO DAILY Qty: 30 RF: 0 pantoprazole [Protonix] 40 mg tablet,delayed release (DR/EC) 40 mg PO BID Qty: 60 RF: 0 Continued pravastatin 10 mg Tablet 10 mg PO DAILY RF: 0 trazodone 100 mg tablet 200 mg PO QHS RF: 0 aspirin 81 mg tablet,delayed release (DR/EC) 81 mg PO DAILY RF: 0 buspirone 30 mg tablet 30 mg PO BID RF: 0 cetirizine 10 mg tablet 10 mg PO DAILY RF: 0 clopidogrel 75 mg tablet 75 mg PO DAILY RF: 0 calcium carbonate [Calcium 600] 600 mg calcium (1,500 mg) Tablet 600 mg PO DAILY RF: 0 fluoxetine 20 mg capsule 60 mg PO DAILY RF: 0 furosemide 40 mg Tablet 40 mg PO DAILY RF: 0 metformin 500 mg Tablet 500 mg PO BID RF: 0 ipratropium-albuterol 0.5 mg-3 mg(2.5 mg base)/3 mL Solution For Nebulization 3 ml INHALATION TID RF: 0 levothyroxine 75 mcg Tablet 75 mcg PO DAILY RF: 0 losartan 25 mg Tablet 25 mg PO DAILY RF: 0 folic acid 1 mg Tablet 1 mg PO DAILY RF: 0 montelukast 10 mg Tablet 10 mg PO QHS RF: 0 albuterol sulfate 90 mcg/actuation HFA aerosol inhaler 2 puff INHALATION Q4H PRN (Reason: Shortness Of Breath Or Wheezing) RF: 0 Dulera 200-5 mcg/actuation HFA aerosol inhaler 2 inh INHALATION BID RF: 0 Incruse Ellipta 62.5 mcg/actuation blister with device 1 inh INHALATION DAILY RF: 0 clonazepam 0.5 mg Tablet 0.5 mg PO DAILY PRN (Reason: Anxiety) RF: 0 albuterol sulfate 2.5 mg /3 mL (0.083 %) Solution For Nebulization 2.5 mg INHALATION Q4H PRN (Reason: copd) RF: 0 Daliresp 250 mcg Tablet 250 mcg PO DAILY RF: 0 ondansetron 8 mg Tablet,Disintegrating 8 mg PO Q12H PRN (Reason: Nausea) RF: 0 potassium chloride 20 mEq Tablet Extended Release 20 meq PO BID RF: 0 pyridoxine (vitamin B6) [Vitamin B-6] 250 mg Tablet 250 mg PO DAILY RF: 0 calcium citrate 200 mg (950 mg) Tablet 600 mg PO BID RF: 0 cholecalciferol (vitamin D3) [Vitamin D3] 125 mcg (5,000 unit) Tablet 125 mcg PO QWEEK RF: 0 tizanidine 4 mg Tablet 4 mg PO Q8H PRN (Reason: Muscle Spasm) RF: 0 Changed gabapentin 600 mg Tablet 300 mg PO BID Qty: 0 RF: 0 Discontinued omeprazole 20 mg capsule,delayed release(DR/EC) 20 mg PO DAILY RF: 0 tramadol 50 mg Tablet 50 mg PO Q8H PRN (Reason: Pain) RF: 0 Referrals / Follow Up: Miedel,Jeanne, MD [Primary Care Provider] - In 1 Week (Please call to setup a hospital follow up. ) Servando Carreno MD [STAFF PHYSICIAN] - 11/29/21 2:30 pm Disposition Disposition (needs filled in before D/C Order can be placed): Home, Self Care Documented by User: Dr. Juve Kwong DO 11/20/21 17:51 Providers Date of Admission: 11/17/21 Reason For Visit: COPD EXAC, ACUTE ON CHRONIC RESP FAILURE, OPIATE Medications at Discharge Home Medications Dulera 2 inh INHALATION BID 03/17/21 Incruse Ellipta 1 inh INHALATION DAILY 03/17/21 albuterol sulfate 2 puff INHALATION Q4H PRN 03/17/21 aspirin 81 mg PO DAILY 03/17/21 buspirone 30 mg PO BID 03/17/21 calcium carbonate [Calcium 600] 600 mg PO DAILY 03/17/21 cetirizine 10 mg PO DAILY 03/17/21 clopidogrel 75 mg PO DAILY 03/17/21 fluoxetine 60 mg PO DAILY 03/17/21 folic acid 1 mg PO DAILY 03/17/21 furosemide 40 mg PO DAILY 03/17/21 ipratropium-albuterol 3 ml INHALATION TID 03/17/21 levothyroxine 75 mcg PO DAILY 03/17/21 losartan 25 mg PO DAILY 03/17/21 metformin 500 mg PO BID 03/17/21 montelukast 10 mg PO QHS 03/17/21 pravastatin 10 mg PO DAILY 03/17/21 trazodone 200 mg PO QHS 03/17/21 clonazepam 0.5 mg PO DAILY PRN 07/14/21 Daliresp 250 mcg PO DAILY 11/19/21 albuterol sulfate 2.5 mg INHALATION Q4H PRN 11/19/21 calcium citrate 600 mg PO BID 11/19/21 cholecalciferol (vitamin D3) [Vitamin D3] 125 mcg PO QWEEK 11/19/21 ondansetron 8 mg PO Q12H PRN 11/19/21 potassium chloride 20 meq PO BID 11/19/21 pyridoxine (vitamin B6) [Vitamin B-6] 250 mg PO DAILY 11/19/21 tizanidine 4 mg PO Q8H PRN 11/19/21 ferrous sulfate [FeroSul] 325 mg PO TIDCM 30 Days #90 tab 11/20/21 gabapentin 300 mg PO BID #0 tab 11/20/21 pantoprazole [Protonix] 40 mg PO BID #60 tab 11/20/21 prednisone See Taper PO DAILY #30 tab 11/20/21 ABG / Lab / Microbiology Data Result Diagrams: 11/20/21 03:47 11/20/21 03:47 Discharge Plan Admission Admit Date/Time: 11/17/21 20:39 Primary Reason for Your Visit: exacerbation of COPD, hypoxia Attending Provider: Juve Kwong Primary Care Provider: Jeanne Lagunas Consulting Providers: Tejas Berger Discharge Orders/Prescriptions Prescriptions: New ferrous sulfate [FeroSul] 325 mg (65 mg iron) Tablet 325 mg PO TIDCM 30 Days Qty: 90 RF: 0 prednisone 10 mg tablet See Taper mg PO DAILY Qty: 30 RF: 0 pantoprazole [Protonix] 40 mg tablet,delayed release (DR/EC) 40 mg PO BID Qty: 60 RF: 0 Continued pravastatin 10 mg Tablet 10 mg PO DAILY RF: 0 trazodone 100 mg tablet 200 mg PO QHS RF: 0 aspirin 81 mg tablet,delayed release (DR/EC) 81 mg PO DAILY RF: 0 buspirone 30 mg tablet 30 mg PO BID RF: 0 cetirizine 10 mg tablet 10 mg PO DAILY RF: 0 clopidogrel 75 mg tablet 75 mg PO DAILY RF: 0 calcium carbonate [Calcium 600] 600 mg calcium (1,500 mg) Tablet 600 mg PO DAILY RF: 0 fluoxetine 20 mg capsule 60 mg PO DAILY RF: 0 furosemide 40 mg Tablet 40 mg PO DAILY RF: 0 metformin 500 mg Tablet 500 mg PO BID RF: 0 ipratropium-albuterol 0.5 mg-3 mg(2.5 mg base)/3 mL Solution For Nebulization 3 ml INHALATION TID RF: 0 levothyroxine 75 mcg Tablet 75 mcg PO DAILY RF: 0 losartan 25 mg Tablet 25 mg PO DAILY RF: 0 folic acid 1 mg Tablet 1 mg PO DAILY RF: 0 montelukast 10 mg Tablet 10 mg PO QHS RF: 0 albuterol sulfate 90 mcg/actuation HFA aerosol inhaler 2 puff INHALATION Q4H PRN (Reason: Shortness Of Breath Or Wheezing) RF: 0 Dulera 200-5 mcg/actuation HFA aerosol inhaler 2 inh INHALATION BID RF: 0 Incruse Ellipta 62.5 mcg/actuation blister with device 1 inh INHALATION DAILY RF: 0 clonazepam 0.5 mg Tablet 0.5 mg PO DAILY PRN (Reason: Anxiety) RF: 0 albuterol sulfate 2.5 mg /3 mL (0.083 %) Solution For Nebulization 2.5 mg INHALATION Q4H PRN (Reason: copd) RF: 0 Daliresp 250 mcg Tablet 250 mcg PO DAILY RF: 0 ondansetron 8 mg Tablet,Disintegrating 8 mg PO Q12H PRN (Reason: Nausea) RF: 0 potassium chloride 20 mEq Tablet Extended Release 20 meq PO BID RF: 0 pyridoxine (vitamin B6) [Vitamin B-6] 250 mg Tablet 250 mg PO DAILY RF: 0 calcium citrate 200 mg (950 mg) Tablet 600 mg PO BID RF: 0 cholecalciferol (vitamin D3) [Vitamin D3] 125 mcg (5,000 unit) Tablet 125 mcg PO QWEEK RF: 0 tizanidine 4 mg Tablet 4 mg PO Q8H PRN (Reason: Muscle Spasm) RF: 0 Changed gabapentin 600 mg Tablet 300 mg PO BID Qty: 0 RF: 0 Discontinued omeprazole 20 mg capsule,delayed release(DR/EC) 20 mg PO DAILY RF: 0 tramadol 50 mg Tablet 50 mg PO Q8H PRN (Reason: Pain) RF: 0 Referrals / Follow Up: Jeanne Lagunas MD [Primary Care Provider] - In 1 Week (Please call to setup a hospital follow up. ) Servando Carreno MD [STAFF PHYSICIAN] - 11/29/21 2:30 pm Disposition Disposition (needs filled in before D/C Order can be placed): Home, Self Care Charges/Coding Addendum Addendum: Patient was seen and examined today independently of Jackie Steinberg, her oxygen requirement has improved since yesterday. Patient also appears more alert and talkative. On examination she appeared in good health and spirits, she does not appear to be in any distress. Vital signs as documented. Skin warm and dry and without overt rashes. Neck without JVD, thyroid appears normal, trachea is midline, neck is supple. Lungs clear, normal air movement was noted. Heart exam notable for regular rhythm, normal sounds and absence of murmurs, rubs or gallops. Abdomen unremarkable and without evidence of organomegaly, masses, or abdominal aortic enlargement, bowel sounds are present in all 4 quadrants, no abdominal tenderness was noted. Extremities nonedematous, no cyanosis was noted, no clubbing was noted. Neuro: Cranial nerves II through XII are grossly intact, no focal motor deficits were noted, sensation to light touch and pinprick is intact, motor exam 5/5 throughout. Psych: Patient is alert and oriented x3, she does not appear anxious or depressed, she does not appear agitated. Impression:#1 acute on chronic hypoxic respiratory failure-patient is presently stable on nasal cannula oxygen at 2 L #2 non-STEMI type II-no intervention is needed at this time, patient will remain on her current medication #3 acute kidney injury-resolved #4 opiate overdose-not believed to be intentional #5 type 2 diabetes #6 cerebrovascular disease-patient will remain on aspirin and Plavix #7 chronic obstructive pulmonary disease with exacerbation-patient will have an outpatient course of oral steroids I have reviewed Jackie Steinberg's discharge summary including her medical assessment and plan of care and endorse it with the above additions. Total clinical time spent myself addressing the patient's medical issues, reviewing her medical data, performing a physical examination, and collaborating with the patient's care team: 22 minutes Visit Charges Inpatient E&M: [id number] Disch Hosp
[2021-11-20] MEDS: Mag Hydrox/Al Hydrox/Simeth 30 ML UDC PO (11:15)
[2021-11-20] MEDS: Insulin Lispro 100 UNIT/ML INSULN.PEN SC ×2 (11:15→16:54)
--- NOTE | 2021-11-20 11:22 | CASEMGMT ---
Reid Gonsalez RN, pt does not qualify for increased home oxygen. D/C summ/instructions faxed to [facility]. [facility] had stated yesterday that they should be able to accept but cannot likely do SOC until 11/25/21 d/t staffing and weather. Chelsey ARIZMENDI CM
[2021-11-20 11:36] LABS: Bedside Glucose 197 mg/dL (70-110)
[2021-11-20] MEDS: 0.9% Saline Lock 10 ML Syringe IV (14:29)
[2021-11-20 17:01] LABS: Bedside Glucose 153 mg/dL (70-110)
== END 2021-11-20 18:17 | disposition home or self-care (01) | DRG 812 ==
LOC: ED 20:06 → PCU 20:49
PROVIDERS: Nurse Practitioner Family; Admitting Provider Family Medicine; Emergency Provider Emergency Medicine; PCP Family Medicine; Visit Provider Internal Medicine
DX: T40.601A Poisoning by unspecified narcotics, accidental (unintentional), initial encounter (principal); J96.21 Acute and chronic respiratory failure with hypoxia; G93.41 Metabolic encephalopathy; I21.A1 Myocardial infarction type 2; J44.1 Chronic obstructive pulmonary disease with (acute) exacerbation; E11.9 Type 2 diabetes mellitus without complications; D50.9 Iron deficiency anemia, unspecified; N17.9 Acute kidney failure, unspecified; J44.9 Chronic obstructive pulmonary disease, unspecified; I11.0 Hypertensive heart disease with heart failure; F31.9 Bipolar disorder, unspecified; I50.32 Chronic diastolic (congestive) heart failure; E03.9 Hypothyroidism, unspecified; I25.10 Atherosclerotic heart disease of native coronary artery without angina pectoris; K21.9 Gastro-esophageal reflux disease without esophagitis; E78.5 Hyperlipidemia, unspecified; F34.1 Dysthymic disorder; F17.210 Nicotine dependence, cigarettes, uncomplicated; F41.9 Anxiety disorder, unspecified; F17.200 Nicotine dependence, unspecified, uncomplicated; Z86.73 Personal history of transient ischemic attack (TIA), and cerebral infarction without residual deficits; G89.4 Chronic pain syndrome; Z79.02 Long term (current) use of antithrombotics/antiplatelets; Z79.82 Long term (current) use of aspirin; E66.9 Obesity, unspecified; Z20.822 Contact with and (suspected) exposure to COVID-19; Z99.81 Dependence on supplemental oxygen; Z86.711 Personal history of pulmonary embolism; Z79.890 Hormone replacement therapy; Z79.84 Long term (current) use of oral hypoglycemic drugs; Z79.52 Long term (current) use of systemic steroids
CPT/HCPCS: 36415; 36600; 70450; 71045; 80048; 80053; 80061; 80076; 80307; 82077; 82274; 82607; 82746; 82803; 82962; 83540; 83550; 83735; 84145; 84484; 85025; 85610; 85730; 87040; 87426; 93005; 93306; 93458; 94640; 97110; 97162; 97166; 97535; 99152; 99153; 99285; J7030; J7040; J7050; Q9957; Q9967; A4216; C1769; C1894; C8929; J2916

== ENCOUNTER 2021-12-10 11:18 | Emergency (ER) | payer MEDICAID, SELFPAY ==
[2021-12-10 11:18] VITALS: BP 95/64; PULSE 62; RESP 15; TEMP 36.7; O2SAT 95; BMI 36.4
--- NOTE | 2021-12-10 11:20 | RAD_ITS ---
STUDY: X-RAY - LEFT ANKLE REASON FOR EXAM: Female, 51 years old. INJURY TECHNIQUE: 3 view(s) of the ankle. COMPARISON: Comparison is made with prior examination dated 05/09/2021. FINDINGS: Normal visualized distal tibia and fibula. Normal medial and lateral malleoli. Normal tibiotalar articulation and ankle mortise. Normal visualized talus and calcaneus. The visualized subtalar, talonavicular, calcaneocuboid and tarsal articulations are normal. Diffuse soft tissue swelling. RAD/Ankle min 3 Views IMPRESSION: Diffuse soft tissue swelling. Electronically Signed: Brian Casey MD at 11:53 EST ,
--- NOTE | 2021-12-10 12:12 | RAD_ITS ---
STUDY: X-RAY - LEFT FOOT CLINICAL: Female, 51 years old. Injury TECHNIQUE: 3 view(s) of the foot. COMPARISON: None. FINDINGS: Normal talus, calcaneus, and tarsal bones. Normal visualized subtalar, talonavicular, calcaneocuboid, tarsal and tarsometatarsal articulations. Normal metatarsi. There is degenerative arthrosis of the metatarsophalangeal joint of the hallux with a hallux valgus deformity. Normal tibial and fibular sesamoid bones. Normal interphalangeal joint of the great toe. Normal phalanges of the great toe. Normal second through fifth metatarsophalangeal joints. Normal interphalangeal joints and phalanges of the lesser toes. Soft tissue swelling. RAD/Foot min 3 Views IMPRESSION: Soft tissue swelling. Electronically Signed: Brian Casey MD at 12:39 EST ,
--- NOTE | 2021-12-10 12:12 | RAD_ITS ---
STUDY: X-RAY - LEFT TIBIA AND FIBULA REASON FOR EXAM: Female, 51 years old. Pain following injury. TECHNIQUE: 2 view(s) of the tibia and fibula were obtained. COMPARISON: None. FINDINGS: Normal visualized tibia. Normal visualized fibula. The soft tissue structures are unremarkable. RAD/Tibia & Fibula 2 Views IMPRESSION: Normal x-ray examination of the tibia and fibula. Electronically Signed: Brian Casey MD at 12:38 EST ,
[2021-12-10] MEDS: Ketorolac 60 MG/2 ML Vial IM (13:10)
--- NOTE | 2021-12-10 13:16 | EDS_ITS ---
HPI History of Present Illness Chief Complaint: Lower Extremity Injury Informant: patient Narrative Narrative: 4 days ago the patient states that she was in her shower when she slipped jamming her left foot and ankle into the tub. She notes that she believes she broke her left little and fourth toe is they are ecchymotic and painful. She notes pain up onto the foot and the ankle. She denies any other injuries [facility] Medical History Anxiety Asthma Bipolar disorder Chronic pain Congestive heart failure (CHF) COPD (chronic obstructive pulmonary disease) Diabetes Dysthymic disorder Essential hypertension GERD (gastroesophageal reflux disease) Irregular heart beat Obesity On home oxygen therapy Osteopenia Pulmonary embolism Smoker Sprain of left foot Stroke/cerebrovascular accident Tobacco use disorder Home Medications Dulera 2 inh INHALATION BID 03/17/21 [History Last Taken 03/16/21 09:00] Incruse Ellipta 1 inh INHALATION DAILY 03/17/21 [History Last Taken 03/16/21 09:00] albuterol sulfate 2 puff INHALATION Q4H PRN 03/17/21 [History Last Taken 03/16/21 18:00] aspirin 81 mg PO DAILY 03/17/21 [History Last Taken 03/16/21 09:00] buspirone 30 mg PO BID 03/17/21 [History Last Taken 03/16/21 09:00] calcium carbonate [Calcium 600] 600 mg PO DAILY 03/17/21 [History Last Taken 03/16/21 09:00] cetirizine 10 mg PO DAILY 03/17/21 [History Last Taken Unknown] clopidogrel 75 mg PO DAILY 03/17/21 [History Last Taken 03/16/21 09:00] fluoxetine 60 mg PO DAILY 03/17/21 [History Last Taken 03/16/21 09:00] folic acid 1 mg PO DAILY 03/17/21 [History Last Taken 03/16/21 09:00] furosemide 40 mg PO DAILY 03/17/21 [History Last Taken 03/16/21 09:00] ipratropium-albuterol 3 ml INHALATION TID 03/17/21 [History Last Taken 03/16/21 14:00] levothyroxine 75 mcg PO DAILY 03/17/21 [History Last Taken 03/16/21 07:00] losartan 25 mg PO DAILY 03/17/21 [History Last Taken 03/16/21 09:00] metformin 500 mg PO BID 03/17/21 [History Last Taken 03/16/21 09:00] montelukast 10 mg PO QHS 03/17/21 [History Last Taken 03/15/21 21:00] pravastatin 10 mg PO DAILY 03/17/21 [History Last Taken Unknown] trazodone 200 mg PO QHS 03/17/21 [History Last Taken 03/15/21 21:00] clonazepam 0.5 mg PO DAILY PRN 07/14/21 [History Last Taken Unknown] Daliresp 250 mcg PO DAILY 11/19/21 [History Last Taken Unknown] albuterol sulfate 2.5 mg INHALATION Q4H PRN 11/19/21 [History Last Taken Unknown] calcium citrate 600 mg PO BID 11/19/21 [History Last Taken Unknown] cholecalciferol (vitamin D3) [Vitamin D3] 125 mcg PO QWEEK 11/19/21 [History Last Taken Unknown] ondansetron 8 mg PO Q12H PRN 11/19/21 [History Last Taken Unknown] potassium chloride 20 meq PO BID 11/19/21 [History Last Taken Unknown] pyridoxine (vitamin B6) [Vitamin B-6] 250 mg PO DAILY 11/19/21 [History Last Taken Unknown] tizanidine 4 mg PO Q8H PRN 11/19/21 [History Last Taken Unknown] ferrous sulfate [FeroSul] 325 mg PO TIDCM 30 Days #90 tab 11/20/21 [Rx Last Taken Unknown] gabapentin 300 mg PO BID #0 tab 11/20/21 [Rx Last Taken 03/16/21 17:30] pantoprazole [Protonix] 40 mg PO BID #60 tab 11/20/21 [Rx Last Taken Unknown] prednisone See Taper PO DAILY #30 tab 11/20/21 [Rx Last Taken Unknown] Allergy/AdvReac Type Severity Reaction Status Date / Time alprazolam [From Xanax] AdvReac makes pt Verified 11/17/21 21:51 violent Family History Mother COPD (chronic obstructive pulmonary disease) Father Hypertension Surgical History H/O tubal ligation History of cholecystectomy History of left heart catheterization (11/19/21) History of salpingo-oophorectomy Social History household members: family Smoking Status: Current every day smoker tobacco type: cigarettes alcohol intake: current alcohol intake frequency: a few times a month substance use type: does not use ROS ROS ED Constitutional Constitutional ED: Denies chills, fever(s) or weight loss Eyes Eyes: Denies change in vision or diplopia ENT ENT ED: Denies ear pain, rhinorrhea or sore throat Cardiovascular Cardiovascular: Denies chest pain, orthopnea, palpitations or racing heartbeat Respiratory/Chest Respiratory/Chest: Denies cough, dyspnea or orthopnea Gastrointestinal Gastrointestinal: Denies abdominal pain, diarrhea, nausea or vomiting Genitourinary Genitourinary ED: Denies dysuria, hematuria or urinary frequency Musculoskeletal Musculoskeletal: Reports other Details: See HPI ; Denies arthralgias or myalgias Integumentary Denies abscess or rash Neurologic Neurologic: Denies headache(s) or weakness Psychiatric Psychiatric: Denies anxiety, depression, suicidal ideation or suicidal thoughts Endocrine Endocrinology: Denies polydipsia, polyphagia or polyuria Allergic/Immunologic Allergic/Immunologic ED: Denies mouth swelling, tongue swelling or urticaria EXAM Physical Exam Const Vital Signs: 12/10/21 11:18 Temperature 98.1 F Temperature Source Oral Pulse Rate 62 Respiratory Rate 15 Blood Pressure 95/64 Blood Pressure Mean 74 Pulse Ox 95 Oxygen Delivery Method Room Air Positive well nourished and well developed General Appearance ED: well developed HEENT Reports normocephalic, head/scalp atraumatic, TM's clear and moist mucous membranes Negative for trauma Tympanic Membrane ED: Yes TM's clear Eyes PERRL and EOMs intact bilaterally Neck no lymphadenopathy, supple and no JVD Resp normal respiratory effort and clear to auscultation bilaterally Cardio regular rate, regular rhythm and no murmurs GI normal to inspection, nondistended, normoactive bowel sounds and non-tender Palpation: soft Back/Spine no CVA tenderness and normal ROM Extremity Extremity Narrative: Swelling diffusely of the left foot compared to the right. There are some ecchymosis and tenderness to palpation along the fourth and fifth toe. No obvious deformity. She also complains of tenderness around the ankle joint both medial laterally and posteriorly and along the lateral aspect of the leg. There is no calf tenderness. Neuro oriented x3 and CN's II-XII intact bilaterally Sensorium / Orientation: alert Motor Exam: strength 5/5 throughout Psych mental status grossly normal Mood & Affect: Negative for depressed or tearful Skin no rashes or lesions noted and no wounds MDM MDM MDM Narrative Medical decision making narrative: My interpretation of the left foot, left ankle and left tibia fibula is no acute fracture. Patient be placed in a postop shoe for comfort. She was given a shot of Toradol. Would recommend Tylenol Motrin and ice at home. Follow-up 10 to 14 days if not improved Radiography Diagnostic Testing: Clinical Impression(s) from Imaging Studies Ankle X-Ray 12/10/21 11:20 IMPRESSION: Diffuse soft tissue swelling. Electronically Signed: Brian Casey MD at 11:53 EST , Foot X-Ray 12/10/21 12:12 IMPRESSION: Soft tissue swelling. Electronically Signed: Brian Casey MD at 12:39 EST , Tibia/Fibula X-Ray 12/10/21 12:12 IMPRESSION: Normal x-ray examination of the tibia and fibula. Electronically Signed: Brian Casey MD at 12:38 EST , Discharge Plan Triage Chief Complaint: Lower Extremity Injury ED Provider: Indio Mackey Dx/Rx/DC Orders Prescriptions: No Action pravastatin 10 mg Tablet 10 mg PO DAILY RF: 0 trazodone 100 mg tablet 200 mg PO QHS RF: 0 aspirin 81 mg tablet,delayed release (DR/EC) 81 mg PO DAILY RF: 0 buspirone 30 mg tablet 30 mg PO BID RF: 0 cetirizine 10 mg tablet 10 mg PO DAILY RF: 0 clopidogrel 75 mg tablet 75 mg PO DAILY RF: 0 calcium carbonate [Calcium 600] 600 mg calcium (1,500 mg) Tablet 600 mg PO DAILY RF: 0 fluoxetine 20 mg capsule 60 mg PO DAILY RF: 0 furosemide 40 mg Tablet 40 mg PO DAILY RF: 0 metformin 500 mg Tablet 500 mg PO BID RF: 0 ipratropium-albuterol 0.5 mg-3 mg(2.5 mg base)/3 mL Solution For Nebulization 3 ml INHALATION TID RF: 0 levothyroxine 75 mcg Tablet 75 mcg PO DAILY RF: 0 losartan 25 mg Tablet 25 mg PO DAILY RF: 0 folic acid 1 mg Tablet 1 mg PO DAILY RF: 0 montelukast 10 mg Tablet 10 mg PO QHS RF: 0 albuterol sulfate 90 mcg/actuation HFA aerosol inhaler 2 puff INHALATION Q4H PRN (Reason: Shortness Of Breath Or Wheezing) RF: 0 Dulera 200-5 mcg/actuation HFA aerosol inhaler 2 inh INHALATION BID RF: 0 Incruse Ellipta 62.5 mcg/actuation blister with device 1 inh INHALATION DAILY RF: 0 clonazepam 0.5 mg Tablet 0.5 mg PO DAILY PRN (Reason: Anxiety) RF: 0 albuterol sulfate 2.5 mg /3 mL (0.083 %) Solution For Nebulization 2.5 mg INHALATION Q4H PRN (Reason: copd) RF: 0 Daliresp 250 mcg Tablet 250 mcg PO DAILY RF: 0 ondansetron 8 mg Tablet,Disintegrating 8 mg PO Q12H PRN (Reason: Nausea) RF: 0 potassium chloride 20 mEq Tablet Extended Release 20 meq PO BID RF: 0 pyridoxine (vitamin B6) [Vitamin B-6] 250 mg Tablet 250 mg PO DAILY RF: 0 calcium citrate 200 mg (950 mg) Tablet 600 mg PO BID RF: 0 cholecalciferol (vitamin D3) [Vitamin D3] 125 mcg (5,000 unit) Tablet 125 mcg PO QWEEK RF: 0 tizanidine 4 mg Tablet 4 mg PO Q8H PRN (Reason: Muscle Spasm) RF: 0 ferrous sulfate [FeroSul] 325 mg (65 mg iron) Tablet 325 mg PO TIDCM 30 Days Qty: 90 RF: 0 prednisone 10 mg tablet See Taper mg PO DAILY Qty: 30 RF: 0 gabapentin 600 mg Tablet 300 mg PO BID Qty: 0 RF: 0 pantoprazole [Protonix] 40 mg tablet,delayed release (DR/EC) 40 mg PO BID Qty: 60 RF: 0 Primary Care Provider: Jeanne Lagunas
== END 2021-12-10 13:40 | disposition home or self-care (01) ==
PROVIDERS: Emergency Provider Emergency Medicine; PCP Family Medicine; Visit Provider Emergency Medicine
DX: S93.602A Unspecified sprain of left foot, initial encounter (principal); J44.9 Chronic obstructive pulmonary disease, unspecified; I11.0 Hypertensive heart disease with heart failure; I50.9 Heart failure, unspecified; F31.9 Bipolar disorder, unspecified; E11.9 Type 2 diabetes mellitus without complications; W01.0XXA Fall on same level from slipping, tripping and stumbling without subsequent striking against object, initial encounter; Y93.E1 Activity, personal bathing and showering; Y92.002 Bathroom of unspecified non-institutional (private) residence as the place of occurrence of the external cause; M79.605 Pain in left leg; S93.509A Unspecified sprain of unspecified toe(s), initial encounter; J45.909 Unspecified asthma, uncomplicated; K21.9 Gastro-esophageal reflux disease without esophagitis; G89.29 Other chronic pain; F41.9 Anxiety disorder, unspecified; E66.9 Obesity, unspecified; F17.210 Nicotine dependence, cigarettes, uncomplicated; Z79.82 Long term (current) use of aspirin; Z79.02 Long term (current) use of antithrombotics/antiplatelets; Z79.84 Long term (current) use of oral hypoglycemic drugs; Z99.81 Dependence on supplemental oxygen; Z79.899 Other long term (current) drug therapy; Z86.711 Personal history of pulmonary embolism; Z86.73 Personal history of transient ischemic attack (TIA), and cerebral infarction without residual deficits
CPT/HCPCS: 73590; 73610; 73630; 96372; 99284

== ENCOUNTER 2021-12-23 13:14 | Outpatient (CLI) | payer MEDICAID, SELFPAY ==
--- NOTE | 2021-12-23 13:24 | RAD_ITS ---
STUDY: X-RAY - CERVICAL SPINE REASON FOR EXAM: Female, 51 years old. Other cervical disc degeneration, unspecified cervical region TECHNIQUE: 3 view(s) of the cervical spine were obtained. COMPARISON: CT cervical spine May 16, 2012 FINDINGS: There are degenerative changes of the anterior atlantoaxial articulation. Limited visualization. The tip of the odontoid is out of the [id number] on the open-mouth view and poorly visualized on the lateral view. There is straightening of the normal cervical lordosis. There is multilevel spondylosis. C5-C6 C6-C7 worse disc space narrowing narrowing compared to the prior study allowing for differences in technique. The soft tissue structures are unremarkable. RAD/Cerv Spine 2 or 3 Views IMPRESSION: Worsening over time, especially C5-C6 C6-C7, Degenerative change cervical spine. No visualized acute fracture. Electronically Signed: Sandhya Pratt MD at 1:17 EST Reading Location ID and State: [facility] / [place] Tel , Service support ,
--- NOTE | 2021-12-23 13:24 | RAD_ITS ---
STUDY: X-RAY - LUMBAR SPINE REASON FOR EXAM: Female, 51 years old. Other intervertebral disc degeneration, lumbosacral region TECHNIQUE: 3 view(s) of the lumbar spine were obtained. COMPARISON: Lumbar spine x-ray May 16, 2012 FINDINGS: Normal lumbar lordosis. There is no substantial scoliosis. There is a normal alignment of the vertebrae. There is generalized demineralization of the vertebral bodies. There is persistent severe disc space narrowing L5-S1 with facet arthropathy spondylosis. There is greater narrowing of the L4-L5 level when compared to the prior study. There is no significant anterolisthesis. The soft tissue structures are unremarkable. RAD/Lumbar Spine 2 or 3 Views IMPRESSION: Degenerative change worsening L4-L5. Relatively stable appearing moderate to severe degenerative change L5-S1. Electronically Signed: Sandhya Pratt MD at 1:19 EST Reading Location ID and State: [facility] / [place] Tel , Service support ,
== END 2021-12-23 23:59 | disposition home or self-care (01) ==
PROVIDERS: PCP Family Medicine; Referring Provider Anesthesiology Pain Medicine; Visit Provider Anesthesiology Pain Medicine
DX: M50.30 Other cervical disc degeneration, unspecified cervical region (principal); M51.37 Other intervertebral disc degeneration, lumbosacral region
CPT/HCPCS: 72040; 72100

== ENCOUNTER 2022-06-20 15:10 | Emergency (ER) | payer MEDICAID, SELFPAY ==
[2022-06-20 15:11] VITALS: BP 96/72; PULSE 73; RESP 16; TEMP 36.3; O2SAT 98; BMI 31.8
--- NOTE | 2022-06-20 15:27 | ED.VIS.LOWEX ---
HPI History of Present Illness Chief Complaint: Lower Extremity Injury Detail of Chief Complaint: Injury left foot Informant: patient Onset/Context/Timing Onset: Days (2 days ago) Context: Sudden Onset Timing: Continuous Quality of Pain: Dull, Aching and Throbbing Location: Left foot Current Severity: Mild Maximum Severity: Severe Worsened by: Movement or weightbearing Relieved by: Nothing Associated Symptoms Associated Symptoms: Negative for Parasthesia, Weakness or Loss of Funtion Narrative Narrative: Patient is a 52-year-old woman who presents with injury to her left foot. She states the swelling has gotten worse. The pain is gotten worse. She is unable to bear weight. She denies prior history of fracture. She denies paresthesia, otorrhea she denies history of PAD. She denies history of diabetes. She denies hip pain or knee pain. Tetanus Immunization: 5-10 years Prior similar symptoms: No Recent Illness/Hospitalization: No PFSH PFS Medical History Anxiety Asthma Bipolar disorder Chronic pain Congestive heart failure (CHF) COPD (chronic obstructive pulmonary disease) Diabetes Dysthymic disorder Essential hypertension GERD (gastroesophageal reflux disease) Irregular heart beat Obesity On home oxygen therapy Osteopenia Pulmonary embolism Smoker Sprain of left foot Stroke/cerebrovascular accident Tobacco use disorder Home Medications albuterol sulfate 90 mcg/actuation aerosol inhaler 2 puff inhalation Q4H PRN Shortness Of Breath Or Wheezing 03/17/21 [History Last Taken 03/16/21 18:00] aspirin 81 mg tablet,delayed release 81 mg PO DAILY heart health 03/17/21 [History Last Taken 03/16/21 09:00] buspirone 30 mg tablet 30 mg PO BID mood 03/17/21 [History Last Taken 03/16/21 09:00] calcium carbonate 600 mg calcium (1,500 mg) tablet (Calcium) 600 mg PO DAILY supplement 03/17/21 [History Last Taken 03/16/21 09:00] cetirizine 10 mg tablet 10 mg PO DAILY muscle spasms 03/17/21 [History Last Taken Unknown] clopidogrel 75 mg tablet 75 mg PO DAILY antiplatelet 03/17/21 [History Last Taken 03/16/21 09:00] fluoxetine 20 mg capsule 60 mg PO DAILY mood 03/17/21 [History Last Taken 03/16/21 09:00] folic acid 1 mg tablet 1 mg PO DAILY supplement 03/17/21 [History Last Taken 03/16/21 09:00] furosemide 40 mg tablet 40 mg PO DAILY diuretic 03/17/21 [History Last Taken 03/16/21 09:00] ipratropium 0.5 mg-albuterol 3 mg (2.5 mg base)/3 mL nebulization soln 3 ml inhalation TID breathing 03/17/21 [History Last Taken 03/16/21 14:00] levothyroxine 75 mcg tablet 75 mcg PO DAILY thyroid 03/17/21 [History Last Taken 03/16/21 07:00] losartan 25 mg tablet 25 mg PO DAILY BP/heart 03/17/21 [History Last Taken 03/16/21 09:00] metformin 500 mg tablet 500 mg PO BID diabetes 03/17/21 [History Last Taken 03/16/21 09:00] mometasone-formoterol HFA 200 mcg-5 mcg/actuation aerosol inhaler (Dulera) 2 inh inhalation BID breathing 03/17/21 [History Last Taken 03/16/21 09:00] montelukast 10 mg tablet 10 mg PO QHS breathing 03/17/21 [History Last Taken 03/15/21 21:00] pravastatin 10 mg tablet 10 mg PO DAILY cholesterol 03/17/21 [History Last Taken Unknown] trazodone 100 mg tablet 200 mg PO QHS sleep 03/17/21 [History Last Taken 03/15/21 21:00] umeclidinium 62.5 mcg/actuation blister powder for inhalation (Incruse Ellipta) 1 inh inhalation DAILY breathing 03/17/21 [History Last Taken 03/16/21 09:00] clonazepam 0.5 mg tablet 0.5 mg PO DAILY PRN Anxiety 07/14/21 [History Last Taken Unknown] albuterol sulfate 2.5 mg/3 mL (0.083 %) solution for nebulization 2.5 mg inhalation Q4H PRN copd 11/19/21 [History Last Taken Unknown] calcium citrate 200 mg (950 mg) tablet 600 mg PO BID supplement 11/19/21 [History Last Taken Unknown] cholecalciferol (vitamin D3) 125 mcg (5,000 unit) tablet (Vitamin D3) 125 mcg PO QWEEK vitamin 11/19/21 [History Last Taken Unknown] ondansetron 8 mg disintegrating tablet 8 mg PO Q12H PRN Nausea 11/19/21 [History Last Taken Unknown] potassium chloride 20 mEq tablet,extended release 20 meq PO BID supplement 11/19/21 [History Last Taken Unknown] pyridoxine (vitamin B6) 250 mg tablet (Vitamin B-6) 250 mg PO DAILY vitamin 11/19/21 [History Last Taken Unknown] roflumilast 250 mcg tablet (Daliresp) 250 mcg PO DAILY copd 11/19/21 [History Last Taken Unknown] tizanidine 4 mg tablet 4 mg PO Q8H PRN Muscle Spasm 11/19/21 [History Last Taken Unknown] ferrous sulfate 325 mg (65 mg iron) tablet (FeroSul) 325 mg PO TIDCM 30 days #90 tabs 11/20/21 [Rx Last Taken Unknown] gabapentin 600 mg tablet 300 mg PO BID nerve pain #0 tabs 11/20/21 [Rx Last Taken 03/16/21 17:30] pantoprazole 40 mg tablet,delayed release (Protonix) 40 mg PO BID #60 tabs 11/20/21 [Rx Last Taken Unknown] prednisone 10 mg tablet See Taper PO DAILY #30 tabs 11/20/21 [Rx Last Taken Unknown] oxycodone-acetaminophen 5 mg-325 mg tablet 1 tab PO Q6H PRN PRN pain 5 days #20 TABLETS 06/20/22 [Rx Last Taken Unknown] Allergy/AdvReac Type Severity Reaction Status Date / Time alprazolam [From Xanax] AdvReac makes pt Verified 06/20/22 15:11 violent Family History Mother COPD (chronic obstructive pulmonary disease) Father Hypertension Surgical History H/O tubal ligation History of cholecystectomy History of left heart catheterization (11/19/21) History of salpingo-oophorectomy Social History household members: family Smoking Status: Current every day smoker tobacco type: cigarettes alcohol intake: current alcohol intake frequency: a few times a month substance use type: does not use ROS ROS ED Constitutional Constitutional ED: Denies chills, fever(s), subjective, sweats or weight loss Musculoskeletal Musculoskeletal: Reports other Details: Per HPI narrative ; Denies arthralgias, back pain, myalgias or neck pain Integumentary Denies Abrasions or rash Neurologic Neurologic: Denies paresthesias or weakness Psychiatric Psychiatric: Denies anxiety or depression Hematologic/Lymphatic Hematologic/Lymphatic: Denies easy bleeding, easy bruising or lymphadenopathy EXAM Physical Exam Const Vital Signs: 06/20/22 15:11 Temperature 97.3 F L Temperature Source Temporal Pulse Rate 73 Respiratory Rate 16 Blood Pressure 96/72 Blood Pressure Mean 80 Pulse Ox 98 Oxygen Delivery Method Room Air Positive well nourished, well developed and obese General Appearance ED: well developed and NAD Nutritional Appearance: obese HEENT Reports moist mucous membranes HEENT Narrative: Ears normal. Nares patent. normocephalic and atraumatic Eyes PERRL Eyes Narrative: Extract muscle intact. Sclera is anicteric. There is no subconjunctival hemorrhage. Neck full ROM and supple Thyroid: Negative for tender Resp normal respiratory effort, no retractions and clear to auscultation bilaterally Cardio regular rate, regular rhythm, S1 normal heart sound, S2 normal heart sound and no murmurs Back/Spine no CVA tenderness Lumbar Spine / Lower Back: Negative for lumbar spinal tenderness Extremity Negative for normal to inspection Extremity Narrative: There is significant swelling and ecchymosis of the left foot. There is pain all patient over the lateral aspect of the foot on the plantar and dorsal aspect. There is no pain ovation over the lateral or medial malleolus. There is no laxity with drawer testing. Unable to appreciate DP pulse because of the amount of swelling. The PT pulses palpable. Neuro oriented x3, CN's II-XII intact bilaterally, moves all extremities and no sensory deficits noted Sensorium / Orientation: alert Motor Exam: strength 5/5 throughout Psych mental status grossly normal Skin no wounds Lesions: no lesions Rashes: no rashes MDM MDM MDM Narrative Medical decision making narrative: Patient was medicated with IV morphine. X-ray was obtained to confirm fracture versus contusion. Patient has multiple fractures involving the metatarsal bones. Dr. Hutson on-call for podiatry was paged. Radiography X-Ray: Read by ED Physician (Three-view x-ray left foot reveals a spiral/oblique midshaft fracture of the fifth metatarsal and a fracture of the third metatarsal, neck fracture was independently reviewed and interpreted by me at 1548) Diagnostic Testing: Clinical Impression(s) from Imaging Studies Foot X-Ray 06/20/22 15:38 IMPRESSION: Nondisplaced fractures of the fifth metatarsal shaft and the third metatarsal neck. Diffuse osteopenia. Hallux valgus. Soft tissue swelling on the dorsum of the foot. Electronically Signed: Gab Ann MD at 16:23 EDT , Procedures Lower Extremity Splints Lower Extremity Splint: Servando Lazo and - (Posterior short leg) Splint Fabrication: Fabricated Location: Left Discharge Plan Triage Chief Complaint: Lower Extremity Injury ED Provider: Juan Mendoza Dx/Rx/DC Orders Clinical Impression: Fracture of fifth metatarsal bone of left foot, Fracture of third metatarsal bone of left foot Prescriptions: New oxycodone-acetaminophen [oxycodone-acetaminophen] 5-325 mg tablet 1 tab PO Q6H PRN PRN (Reason: pain) 5 Days Qty: 20 0RF No Action pravastatin 10 mg Tablet 10 mg PO DAILY trazodone 100 mg tablet 200 mg PO QHS Label Comments: TAKE 2 TABLETS BY MOUTH AT BEDTIME NEEDED FOR INSOMNIA. aspirin 81 mg tablet,delayed release (DR/EC) 81 mg PO DAILY buspirone 30 mg tablet 30 mg PO BID cetirizine 10 mg tablet 10 mg PO DAILY clopidogrel 75 mg tablet 75 mg PO DAILY calcium carbonate [Calcium 600] 600 mg calcium (1,500 mg) Tablet 600 mg PO DAILY fluoxetine 20 mg capsule 60 mg PO DAILY Label Comments: TAKE 1 CAPSULE BY MOUTH ONCE DAILY. *TAKE WITH PROZAC 40 MG* furosemide 40 mg Tablet 40 mg PO DAILY metformin 500 mg Tablet 500 mg PO BID ipratropium-albuterol 0.5 mg-3 mg(2.5 mg base)/3 mL Solution For Nebulization 3 ml INHALATION TID levothyroxine 75 mcg Tablet 75 mcg PO DAILY losartan 25 mg Tablet 25 mg PO DAILY folic acid 1 mg Tablet 1 mg PO DAILY montelukast 10 mg Tablet 10 mg PO QHS albuterol sulfate 90 mcg/actuation HFA aerosol inhaler 2 puff INHALATION Q4H PRN (Reason: Shortness Of Breath Or Wheezing) Label Comments: INHALE 2 PUFFS BY MOUTH EVERY 4 HOURS NEEDED (ANY BRAND OK) Dulera 200-5 mcg/actuation HFA aerosol inhaler 2 inh INHALATION BID Incruse Ellipta 62.5 mcg/actuation blister with device 1 inh INHALATION DAILY clonazepam 0.5 mg Tablet 0.5 mg PO DAILY PRN (Reason: Anxiety) albuterol sulfate 2.5 mg /3 mL (0.083 %) Solution For Nebulization 2.5 mg INHALATION Q4H PRN (Reason: copd) Daliresp 250 mcg Tablet 250 mcg PO DAILY ondansetron 8 mg Tablet,Disintegrating 8 mg PO Q12H PRN (Reason: Nausea) potassium chloride 20 mEq Tablet Extended Release 20 meq PO BID pyridoxine (vitamin B6) [Vitamin B-6] 250 mg Tablet 250 mg PO DAILY calcium citrate 200 mg (950 mg) Tablet 600 mg PO BID cholecalciferol (vitamin D3) [Vitamin D3] 125 mcg (5,000 unit) Tablet 125 mcg PO QWEEK tizanidine 4 mg Tablet 4 mg PO Q8H PRN (Reason: Muscle Spasm) ferrous sulfate [FeroSul] 325 mg (65 mg iron) Tablet 325 mg PO TIDCM 30 Days Qty: 90 0RF prednisone 10 mg tablet See Taper PO DAILY Qty: 30 0RF Taper: Prednisone Taper 40 mg WITH BREAKFAST for 3 Days and 0 Hour 30 mg WITH BREAKFAST for 3 Days and 0 Hour 20 mg WITH BREAKFAST for 3 Days and 0 Hour 10 mg WITH BREAKFAST for 3 Days and 0 Hour Rx Instructions: 40 mg for 3 days, 30 mg for 3 days, 20 mg for 3 days, 10 mg for 3 days gabapentin 600 mg Tablet 300 mg PO BID Qty: 0 0RF pantoprazole [Protonix] 40 mg tablet,delayed release (DR/EC) 40 mg PO BID Qty: 60 0RF Primary Care Provider: Jeanne Lagunas Referrals: Jeanne Lagunas MD [Primary Care Provider] - Nellie Hutson DPM [Med Staff - Active Staff] - 5-7 Days Activity Restrictions/Additional Instructions: 1. Keep the splint absolutely clean and dry 2. Elevate your ankle above your nose 3. Apply ice 8-10 times a day 4. Do not put any weight on your foot 5. Contact Dr. Milian's office for follow-up this coming week Disposition Disposition: Home, Self Care
[2022-06-20] MEDS: Morphine 4 MG/ML Syringe IV (15:30)
--- NOTE | 2022-06-20 15:38 | RAD_ITS ---
STUDY: X-RAY - LEFT FOOT CLINICAL: Female, 52 years old. Injury/Pain TECHNIQUE: 3 view(s) of the foot. COMPARISON: 12/10/2021 FINDINGS: Please see the impression. RAD/Foot min 3 Views IMPRESSION: Nondisplaced fractures of the fifth metatarsal shaft and the third metatarsal neck. Diffuse osteopenia. Hallux valgus. Soft tissue swelling on the dorsum of the foot. Electronically Signed: Gab Ann MD at 16:23 EDT ,
== END 2022-06-20 17:08 | disposition home or self-care (01) ==
PROVIDERS: Emergency Provider Emergency Medicine; PCP Family Medicine; Visit Provider Emergency Medicine
DX: S92.352A Displaced fracture of fifth metatarsal bone, left foot, initial encounter for closed fracture (principal); J44.9 Chronic obstructive pulmonary disease, unspecified; I11.0 Hypertensive heart disease with heart failure; I50.9 Heart failure, unspecified; F31.9 Bipolar disorder, unspecified; E11.9 Type 2 diabetes mellitus without complications; S92.335A Nondisplaced fracture of third metatarsal bone, left foot, initial encounter for closed fracture; F17.210 Nicotine dependence, cigarettes, uncomplicated; Z86.73 Personal history of transient ischemic attack (TIA), and cerebral infarction without residual deficits; Z99.81 Dependence on supplemental oxygen; J45.909 Unspecified asthma, uncomplicated
CPT/HCPCS: 73630; 96374; 99284; A4216

== ENCOUNTER 2022-10-04 13:04 | Emergency (ER) | payer MEDICAID, SELFPAY ==
[2022-10-04] VITALS (15 sets, daily range): BP systolic 95–115; BP diastolic 57–91; PULSE 66–80; RESP 12–21; TEMP 35.5–36.1; O2SAT 98–100; BMI 35.4
--- NOTE | 2022-10-04 13:08 | CT_ITS ---
HISTORY: Neuro deficit, acute, stroke suspected. TECHNIQUE: Multiple axial images were obtained of the head without intravenous contrast. A radiation dose optimization technique was used for this scan. 252 images. COMPARISON: 11/17/2021. FINDINGS: BRAIN PARENCHYMA: Multiple foci and zones of low attenuation in the bilateral cerebral white matter compatible with chronic small vessel ischemic gliosis. Chronic left parietal, right parietal temporal, and left occipital infarcts. Old bilateral cerebellar infarcts. Right middle cranial fossa arachnoid cyst or prominent CSF space again noted. No acute intra-axial hemorrhage identified. CSF SPACES: Generalized volume loss. No midline shift or other significant mass effect. No acute extra-axial hemorrhage seen. OTHER: Intact calvarium. Fluid and mucosal thickening in the right maxillary sinus. Bilateral lens resections. ASPECTS Score for Acute Strokes: 10 CT/STROKE Brain/Head without Cont IMPRESSION: No acute intracranial process identified. Chronic involutional and white matter changes. Old cerebral and cerebellar infarcts. Right maxillary sinusitis. N.B. : The above Results were Read Back by Kirsten Smith MD to Yue Stock DO, and understanding confirmed on 10/04/2022 13:34:51 (ET). Electronically Signed: Kirsten Smith MD at 13:35 EST ,
--- NOTE | 2022-10-04 13:08 | EKG12_ITS ---
Test Reason : STROKE Blood Pressure : / mmHG Vent. Rate : 076 BPM Atrial Rate : 076 BPM P-R Int : 150 ms QRS Dur : 110 ms QT Int : 432 ms P-R-T Axes : 080 072 040 degrees QTc Int : 486 ms Normal sinus rhythm Low voltage QRS Right bundle branch block Abnormal ECG Confirmed by JASS MELO, BROWN ([id number]), slot editor MARIA SIFUENTES ([id number]) on 10/06/2022 1:10:51 PM Referred By: LIZZ Confirmed By:BROWN REGAN MD
--- NOTE | 2022-10-04 13:08 | CT_ITS ---
HISTORY: Trauma, fall. TECHNIQUE: Helically acquired images were obtained of the cervical spine without contrast. 2D reformatted images were reviewed. A radiation dose optimization technique was used for this scan. 670 images. COMPARISON: XR 12/23/2021. CTA same day. FINDINGS: Motion artifact lowers the sensitivity of examination and CTA neck images were also reviewed. VERTEBRAE: No acute fracture identified. ALIGNMENT: Straightening of the cervical lordosis without significant anterior or posterior subluxation. INTERVERTEBRAL DISCS: Degenerative endplate changes of C5-6 and C6-7 with posterior disc bulge osteophyte complexes with moderate central canal stenosis and bilateral foraminal narrowing. SOFT TISSUES: No prevertebral soft tissue swelling. Emphysema in the lung apices. CT/Spine Cervical without Contras IMPRESSION: No evidence of acute cervical spinal fracture or dislocation. Multilevel degenerative disc disease. Electronically Signed: Kirsten Smith MD at 14:11 EST ,
--- NOTE | 2022-10-04 13:09 | CT_ITS ---
HISTORY: Neuro deficit, acute, stroke suspected. TECHNIQUE: Routine carotid and still[place] of [place] CT angiogram protocol was performed after the intravenous administration of 100 mL Isovue-370. NASCET criteria using the distal ICAs for comparison were used for evaluation of stenoses. 3D reconstructions were reviewed. A radiation dose optimization technique was used for this scan .2038 images. COMPARISON: CT head same day. FINDINGS: Motion artifact lowers the sensitivity of examination. AORTIC ARCH AND BRANCHES: Minimal atherosclerosis. Bovine arch configuration. RIGHT CCA/RIGHT ICA: No occlusion or significant stenosis. Limited evaluation for other focal vascular abnormality due to motion artifact. LEFT CCA/LEFT ICA: No occlusion or significant stenosis. Limited evaluation for other focal vascular abnormality due to motion artifact. RIGHT VERTEBRAL ARTERY: Hypoplastic. No occlusion, significant stenosis or dissection. LEFT VERTEBRAL ARTERY: Dominant. No occlusion, significant stenosis or dissection. SOFT TISSUES: Emphysematous lung apices. Fluid in the right maxillary and sphenoid sinuses. ICAs: No significant stenosis at the intracranial/visualized segments. Mild calcified plaque at both carotid siphons. ACAs: No significant stenosis at the visualized segments. Fenestrated anterior communicating artery incidentally noted. MCAs: Abrupt cut off in the M1 segment of the right middle cerebral artery. No significant stenosis on the left. devops architect: No significant stenosis at the visualized segments. BASILAR ARTERY: No significant stenosis. VERTEBRAL ARTERIES: No significant stenosis at the intradural/visualized segments. No evidence of intracranial aneurysm or vascular malformation. CT/STROKE CTA Head AND Neck W/Con IMPRESSION: Occlusion in the M1 segment of the right middle cerebral artery. Motion artifact without evidence for high-grade stenosis or occlusion in the carotid or vertebral arteries of the neck. N.B. : The above Results were Read Back by Kirsten Smith MD to Johnathan Stock MD, and understanding confirmed on 10/04/2022 13:57:33 (ET). Electronically Signed: Kirsten Smith MD at 13:57 EST ,
--- NOTE | 2022-10-04 13:10 | EX.ED.DYSGE1 ---
HPI History of Present Illness Chief Complaint: Fall Informant: EMS Narrative Narrative: Patient is a 52-year-old female with complex medical history including prior stroke with residual right hand numbness, COPD, bipolar disorder, chronic hypoxia, diabetes mellitus and chronic pain. She is presenting via EMS after she was found facedown in a walk-in bathtub. She was last seen at home last night before everyone went to bed. The exact time is not clear. EMS states they found her face down in the bathtub. They were able to pick her up. She has flaccid left side, garbled speech is looking to the right. Normally patient is amatory and conversant. She appears to be on Plavix no other blood thinners. No other complaints at this time. [facility] Medical History Anxiety Asthma Bipolar disorder Chronic pain Congestive heart failure (CHF) COPD (chronic obstructive pulmonary disease) Diabetes Dysthymic disorder Essential hypertension GERD (gastroesophageal reflux disease) Irregular heart beat Obesity On home oxygen therapy Osteopenia Pulmonary embolism Smoker Sprain of left foot Stroke/cerebrovascular accident Tobacco use disorder Home Medications albuterol sulfate 90 mcg/actuation aerosol inhaler 2 puff inhalation Q4H PRN Shortness Of Breath Or Wheezing 03/17/21 [History Last Taken 03/16/21 18:00] aspirin 81 mg tablet,delayed release 81 mg PO DAILY heart health 03/17/21 [History Last Taken 03/16/21 09:00] buspirone 30 mg tablet 30 mg PO BID mood 03/17/21 [History Last Taken 03/16/21 09:00] calcium carbonate 600 mg calcium (1,500 mg) tablet (Calcium) 600 mg PO DAILY supplement 03/17/21 [History Last Taken 03/16/21 09:00] cetirizine 10 mg tablet 10 mg PO DAILY muscle spasms 03/17/21 [History Last Taken Unknown] clopidogrel 75 mg tablet 75 mg PO DAILY antiplatelet 03/17/21 [History Last Taken 03/16/21 09:00] fluoxetine 20 mg capsule 60 mg PO DAILY mood 03/17/21 [History Last Taken 03/16/21 09:00] folic acid 1 mg tablet 1 mg PO DAILY supplement 03/17/21 [History Last Taken 03/16/21 09:00] furosemide 40 mg tablet 40 mg PO DAILY diuretic 03/17/21 [History Last Taken 03/16/21 09:00] ipratropium 0.5 mg-albuterol 3 mg (2.5 mg base)/3 mL nebulization soln 3 ml inhalation TID breathing 03/17/21 [History Last Taken 03/16/21 14:00] levothyroxine 75 mcg tablet 75 mcg PO DAILY thyroid 03/17/21 [History Last Taken 03/16/21 07:00] losartan 25 mg tablet 25 mg PO DAILY BP/heart 03/17/21 [History Last Taken 03/16/21 09:00] metformin 500 mg tablet 500 mg PO BID diabetes 03/17/21 [History Last Taken 03/16/21 09:00] mometasone-formoterol HFA 200 mcg-5 mcg/actuation aerosol inhaler (Dulera) 2 inh inhalation BID breathing 03/17/21 [History Last Taken 03/16/21 09:00] montelukast 10 mg tablet 10 mg PO QHS breathing 03/17/21 [History Last Taken 03/15/21 21:00] pravastatin 10 mg tablet 10 mg PO DAILY cholesterol 03/17/21 [History Last Taken Unknown] trazodone 100 mg tablet 200 mg PO QHS sleep 03/17/21 [History Last Taken 03/15/21 21:00] umeclidinium 62.5 mcg/actuation blister powder for inhalation (Incruse Ellipta) 1 inh inhalation DAILY breathing 03/17/21 [History Last Taken 03/16/21 09:00] clonazepam 0.5 mg tablet 0.5 mg PO DAILY PRN Anxiety 07/14/21 [History Last Taken Unknown] albuterol sulfate 2.5 mg/3 mL (0.083 %) solution for nebulization 2.5 mg inhalation Q4H PRN copd 11/19/21 [History Last Taken Unknown] calcium citrate 200 mg (950 mg) tablet 600 mg PO BID supplement 11/19/21 [History Last Taken Unknown] cholecalciferol (vitamin D3) 125 mcg (5,000 unit) tablet (Vitamin D3) 125 mcg PO QWEEK vitamin 11/19/21 [History Last Taken Unknown] ondansetron 8 mg disintegrating tablet 8 mg PO Q12H PRN Nausea 11/19/21 [History Last Taken Unknown] potassium chloride 20 mEq tablet,extended release 20 meq PO BID supplement 11/19/21 [History Last Taken Unknown] pyridoxine (vitamin B6) 250 mg tablet (Vitamin B-6) 250 mg PO DAILY vitamin 11/19/21 [History Last Taken Unknown] roflumilast 250 mcg tablet (Daliresp) 250 mcg PO DAILY copd 11/19/21 [History Last Taken Unknown] tizanidine 4 mg tablet 4 mg PO Q8H PRN Muscle Spasm 11/19/21 [History Last Taken Unknown] ferrous sulfate 325 mg (65 mg iron) tablet (FeroSul) 325 mg PO TIDCM 30 days #90 tabs 11/20/21 [Rx Last Taken Unknown] gabapentin 600 mg tablet 300 mg PO BID nerve pain #0 tabs 11/20/21 [Rx Last Taken 03/16/21 17:30] pantoprazole 40 mg tablet,delayed release (Protonix) 40 mg PO BID #60 tabs 11/20/21 [Rx Last Taken Unknown] prednisone 10 mg tablet See Taper PO DAILY #30 tabs 11/20/21 [Rx Last Taken Unknown] oxycodone-acetaminophen 5 mg-325 mg tablet 1 tab PO Q6H PRN PRN pain 5 days #20 TABLETS 06/20/22 [Rx Last Taken Unknown] Allergy/AdvReac Type Severity Reaction Status Date / Time alprazolam [From Xanax] AdvReac makes pt Verified 06/20/22 15:11 violent Family History Mother COPD (chronic obstructive pulmonary disease) Father Hypertension Surgical History H/O tubal ligation History of cholecystectomy History of left heart catheterization (11/19/21) History of salpingo-oophorectomy Social History household members: family Smoking Status: Current every day smoker tobacco type: cigarettes alcohol intake: current alcohol intake frequency: a few times a month substance use type: does not use ROS ROS ED Review of Systems ROS Unobtainable: due to mental status EXAM Physical Exam Const Vital Signs: 10/04/22 13:06 10/04/22 13:28 10/04/22 13:47 Temperature 96.6 F L 96 F L Temperature Source Temporal Temporal Pulse Rate 79 79 Respiratory Rate 20 H 20 H Respiratory Pattern Blood Pressure 99/74 99/74 Blood Pressure Mean 82 82 Blood Pressure Source Blood Pressure Position Blood Pressure Location Pulse Ox 100 100 100 Oxygen Delivery Method Nasal Cannula Nasal Cannula Nasal Cannula Oxygen Flow Rate (L/min) 4 4 4 Fraction of Inspired Oxygen (FIO2) 10/04/22 13:47 10/04/22 13:58 10/04/22 14:08 Temperature 96.6 F L Temperature Source Pulse Rate 76 77 76 Respiratory Rate 19 H 18 19 H Respiratory Pattern Blood Pressure 114/90 H 114/90 H 115/91 H Blood Pressure Mean 98 98 99 Blood Pressure Source Blood Pressure Position Blood Pressure Location Pulse Ox 99 100 100 Oxygen Delivery Method Nasal Cannula Nasal Cannula Oxygen Flow Rate (L/min) 2 2 Fraction of Inspired Oxygen (FIO2) 10/04/22 14:39 10/04/22 14:29 10/04/22 14:44 Temperature 97.0 F L 97.0 F L Temperature Source Temporal Temporal Pulse Rate 69 68 Respiratory Rate 18 17 Respiratory Pattern Blood Pressure 115/91 H 115/91 H 95/57 L Blood Pressure Mean 99 69 Blood Pressure Source Monitor Monitor Blood Pressure Position Semi-Fowlers Semi-Fowlers Blood Pressure Location Left Arm Left Arm Pulse Ox 100 99 Oxygen Delivery Method Bi-pap Bi-pap Oxygen Flow Rate (L/min) Fraction of Inspired Oxygen (FIO2) 10/04/22 14:59 10/04/22 14:40 10/04/22 15:14 Temperature 96.4 F L 96.4 F L Temperature Source Temporal Temporal Pulse Rate 69 80 73 Respiratory Rate 17 21 H 18 Respiratory Pattern Tachypnea Blood Pressure 106/80 108/77 Blood Pressure Mean 88 87 Blood Pressure Source Monitor Monitor Blood Pressure Position Semi-Fowlers Semi-Fowlers Blood Pressure Location Left Arm Left Arm Pulse Ox 99 99 99 Oxygen Delivery Method Bi-pap Bi-pap Oxygen Flow Rate (L/min) Fraction of Inspired Oxygen (FIO2) 30 10/04/22 15:29 10/04/22 15:44 10/04/22 15:59 Temperature 96.6 F L 96.7 F L 97.0 F L Temperature Source Temporal Temporal Temporal Pulse Rate 76 66 71 Respiratory Rate 17 16 17 Respiratory Pattern Blood Pressure 108/82 H 101/74 107/81 H Blood Pressure Mean 90 83 89 Blood Pressure Source Monitor Monitor Monitor Blood Pressure Position Semi-Fowlers Semi-Fowlers Semi-Fowlers Blood Pressure Location Left Arm Left Arm Left Arm Pulse Ox 98 100 98 Oxygen Delivery Method Bi-pap Bi-pap Bi-pap Oxygen Flow Rate (L/min) Fraction of Inspired Oxygen (FIO2) 10/04/22 16:14 Temperature 97.0 F L Temperature Source Temporal Pulse Rate 71 Respiratory Rate 16 Respiratory Pattern Blood Pressure 95/68 Blood Pressure Mean 77 Blood Pressure Source Monitor Blood Pressure Position Semi-Fowlers Blood Pressure Location Left Arm Pulse Ox 100 Oxygen Delivery Method Bi-pap Oxygen Flow Rate (L/min) Fraction of Inspired Oxygen (FIO2) Positive well nourished and well developed General Appearance ED: well developed HEENT Reports dry mucous membranes Negative for trauma Mouth ED: Yes dry mucous membranes Mouth: dry mucous membranes Eyes PERRL Eyes Narrative: Pupils 5 mm, sluggishly reactive. Right gaze deviation Neck supple and no JVD Chest Wall inspection of chest normal and palpation of chest normal Resp normal respiratory effort Resp Narrative: Wet cough Cardio regular rate, regular rhythm and no murmurs GI normal to inspection, nondistended, normoactive bowel sounds Extremity normal to inspection Neuro Neuro Narrative: Somnolent, arousable to verbal stimuli. Garbled responses but does state her birthday. Right gaze deviation, left-sided flaccid this. Decreased sensation of the left side with neglect. See NIH below. Skin no rashes or lesions noted and no wounds MDM MDM MDM Narrative Medical decision making narrative: Patient is evaluated after she was found down and she has significant left-sided deficits. Last known well was last night. Stroke alert was called however as she has clinical features concerning for a large vessel occlusion and is still within window for clot retrieval. Differential also includes hemorrhagic stroke, trauma, encephalopathy, polypharmacy and infection. CT of the brain does not show any acute process. CT of the brain does show an M1 occlusion consistent with a large vessel occlusion. Case is discussed with Dr. Reed, who will evaluate the patient but recommends transfer for further evaluation of the patient's LVO and potential surgical intervention. She does not recommend any heparin at this time. Will defer aspirin until she is evaluated by neurology/neurosurgery and they can give at their discretion. Patient is little somnolent and an ABG is obtained. She has mild decompensated hypercapnic respiratory failure. She be placed on BiPAP. Her brother who is her medical POA is at the bedside. He is agreeable this plan of care. On repeat evaluation patient does have some slight movement now noted of the left leg and the left upper extremity. She is tolerating BiPAP and resting comfortably. She remains hemodynamically stable. Lab Data Attestation: I reviewed the patient's lab results. Labs: Laboratory Results - last 24 hr 10/04/22 10/04/22 10/04/22 13:30 13:30 13:30 WBC 9.5 RBC 3.58 L Hgb 11.2 L Hct 35.9 L MCV 100.3 H MCH 31.3 MCHC 31.2 L RDW Std Deviation 51.6 H RDW Coeff of Kirstie 14.0 Plt Count 277 MPV 8.8 Immature Gran % (Auto) 0.600 Neut % (Auto) 76.1 H Lymph % (Auto) 14.4 L Nance % (Auto) 6.5 Eos % (Auto) 2.0 Baso % (Auto) 0.4 Absolute Neuts (auto) 7.2 Absolute Lymphs (auto) 1.36 Nucleated RBC % 0 PT 13.2 INR 1.0 APTT 22.6 L Sodium 138 Potassium 3.7 Chloride 102 Carbon Dioxide 34.0 H Anion Gap 2 L BUN 23 H Creatinine 0.99 Estim Creat Clear Calc 53.74 Est GFR (MDRD) Af Amer 75 Est GFR (MDRD) Non-Af 62 BUN/Creatinine Ratio 23.2 H Glucose 158 H Calcium 8.7 Total Creatine Kinase 35 Troponin I High Sens 5 TSH 1.50 10/04/22 10/04/22 13:30 15:20 WBC RBC Hgb Hct MCV MCH MCHC RDW Std Deviation RDW Coeff of Kirstie Plt Count MPV Immature Gran % (Auto) Neut % (Auto) Lymph % (Auto) Nance % (Auto) Eos % (Auto) Baso % (Auto) Absolute Neuts (auto) Absolute Lymphs (auto) Nucleated RBC % PT INR APTT Sodium Potassium Chloride Carbon Dioxide Anion Gap BUN Creatinine Estim Creat Clear Calc Est GFR (MDRD) Af Amer Est GFR (MDRD) Non-Af BUN/Creatinine Ratio Glucose Calcium Total Creatine Kinase Troponin I High Sens 5 TSH Cancelled ABG Data ABG results: ABG 10/04/22 13:40 Specimen Type ART Sample Site R Radial pH 7.31 L Bicarbonate Actual 31.9 H Total CO2 34 Base Excess 6 H O2 Saturation 97 ABG pCO2 64.1 H ABG pO2 97 Rafael Test Positive O2 Delivery Device Cannula Liter Flow 4.0 Radiography Chest X-Ray - ED: 1 View, Read by ED Physician, Read by Radiologist and No Acute Disease Diagnostic Testing: Clinical Impression(s) from Imaging Studies Brain CT 10/04/22 13:08 IMPRESSION: No acute intracranial process identified. Chronic involutional and white matter changes. Old cerebral and cerebellar infarcts. Right maxillary sinusitis. N.B. : The above Results were Read Back by Kirsten Smith MD to Yue Stock DO, and understanding confirmed on 10/04/2022 13:34:51 (ET). Electronically Signed: Kirsten Smith MD at 13:35 EST Reading Location ID and State: [facility] / [place] Tel , Service support , ADDENDUM: 10/04/22 1342 IMPRESSION: No acute intracranial process identified. Chronic involutional and white matter changes. Old cerebral and cerebellar infarcts. Right maxillary sinusitis. N.B. : The above Results were Read Back by Kirsten Smith MD to Yue Stock DO, and understanding confirmed on 10/04/2022 13:34:51 (ET). Electronically Signed: Kirsten Smith MD at 13:35 EST , Cervical Spine CT 10/04/22 13:08 IMPRESSION: No evidence of acute cervical spinal fracture or dislocation. Multilevel degenerative disc disease. Electronically Signed: Kirsten Smith MD at 14:11 EST , Head/Neck CTA 10/04/22 13:09 IMPRESSION: Occlusion in the M1 segment of the right middle cerebral artery. Motion artifact without evidence for high-grade stenosis or occlusion in the carotid or vertebral arteries of the neck. N.B. : The above Results were Read Back by Kirsten Smith MD to Johnathan Stock MD, and understanding confirmed on 10/04/2022 13:57:33 (ET). Electronically Signed: Kirsten Smith MD at 13:57 EST , ADDENDUM: 10/04/22 1404 IMPRESSION: Occlusion in the M1 segment of the right middle cerebral artery. Motion artifact without evidence for high-grade stenosis or occlusion in the carotid or vertebral arteries of the neck. N.B. : The above Results were Read Back by Kirsten Smith MD to Johnathan Stock MD, and understanding confirmed on 10/04/2022 13:57:33 (ET). Electronically Signed: Kirsten Smith MD at 13:57 EST , Rhythm Strip Rhythm Strip: Sinus Rhythm Rate: 76 Ectopy: None EKG Initial EKG: Attestation: I personally reviewed and interpreted this EKG as follows: Interpretation: Sinus Rhythm Comments: Normal sinus rhythm at a rate of 76 bpm Right bundle branch block Low voltage QRS Normal axis T wave inversions in V1 and V3 Compared to prior EKG on 11/19/2021 patient now has new T wave inversions Critical Care Time Critical Care Time: Yes Critical care time (excluding procedures): 30-74 minutes (42), Discussing w/Patient &/or Family/Transitional Studies Instructor, Discussing w/Consultants and Arranging Admission or Transfer Discharge Plan Triage Chief Complaint: Fall ED Provider: Yue Stock Dx/Rx/DC Orders Clinical Impression: Acute stroke due to occlusion of right middle cerebral artery, Altered mental status, Acute on chronic respiratory failure with hypercapnia Prescriptions: No Action pravastatin 10 mg Tablet 10 mg PO DAILY trazodone 100 mg tablet 200 mg PO QHS Label Comments: TAKE 2 TABLETS BY MOUTH AT BEDTIME NEEDED FOR INSOMNIA. aspirin 81 mg tablet,delayed release (DR/EC) 81 mg PO DAILY buspirone 30 mg tablet 30 mg PO BID cetirizine 10 mg tablet 10 mg PO DAILY clopidogrel 75 mg tablet 75 mg PO DAILY calcium carbonate [Calcium 600] 600 mg calcium (1,500 mg) Tablet 600 mg PO DAILY fluoxetine 20 mg capsule 60 mg PO DAILY Label Comments: TAKE 1 CAPSULE BY MOUTH ONCE DAILY. *TAKE WITH PROZAC 40 MG* furosemide 40 mg Tablet 40 mg PO DAILY metformin 500 mg Tablet 500 mg PO BID ipratropium-albuterol 0.5 mg-3 mg(2.5 mg base)/3 mL Solution For Nebulization 3 ml INHALATION TID levothyroxine 75 mcg Tablet 75 mcg PO DAILY losartan 25 mg Tablet 25 mg PO DAILY folic acid 1 mg Tablet 1 mg PO DAILY montelukast 10 mg Tablet 10 mg PO QHS albuterol sulfate 90 mcg/actuation HFA aerosol inhaler 2 puff INHALATION Q4H PRN (Reason: Shortness Of Breath Or Wheezing) Label Comments: INHALE 2 PUFFS BY MOUTH EVERY 4 HOURS NEEDED (ANY BRAND OK) Dulera 200-5 mcg/actuation HFA aerosol inhaler 2 inh INHALATION BID Incruse Ellipta 62.5 mcg/actuation blister with device 1 inh INHALATION DAILY clonazepam 0.5 mg Tablet 0.5 mg PO DAILY PRN (Reason: Anxiety) albuterol sulfate 2.5 mg /3 mL (0.083 %) Solution For Nebulization 2.5 mg INHALATION Q4H PRN (Reason: copd) Daliresp 250 mcg Tablet 250 mcg PO DAILY ondansetron 8 mg Tablet,Disintegrating 8 mg PO Q12H PRN (Reason: Nausea) potassium chloride 20 mEq Tablet Extended Release 20 meq PO BID pyridoxine (vitamin B6) [Vitamin B-6] 250 mg Tablet 250 mg PO DAILY calcium citrate 200 mg (950 mg) Tablet 600 mg PO BID cholecalciferol (vitamin D3) [Vitamin D3] 125 mcg (5,000 unit) Tablet 125 mcg PO QWEEK tizanidine 4 mg Tablet 4 mg PO Q8H PRN (Reason: Muscle Spasm) ferrous sulfate [FeroSul] 325 mg (65 mg iron) Tablet 325 mg PO TIDCM 30 Days Qty: 90 0RF prednisone 10 mg tablet See Taper PO DAILY Qty: 30 0RF Taper: Prednisone Taper 40 mg WITH BREAKFAST for 3 Days and 0 Hour 30 mg WITH BREAKFAST for 3 Days and 0 Hour 20 mg WITH BREAKFAST for 3 Days and 0 Hour 10 mg WITH BREAKFAST for 3 Days and 0 Hour Rx Instructions: 40 mg for 3 days, 30 mg for 3 days, 20 mg for 3 days, 10 mg for 3 days gabapentin 600 mg Tablet 300 mg PO BID Qty: 0 0RF pantoprazole [Protonix] 40 mg tablet,delayed release (DR/EC) 40 mg PO BID Qty: 60 0RF oxycodone-acetaminophen [oxycodone-acetaminophen] 5-325 mg tablet 1 tab PO Q6H PRN PRN (Reason: pain) 5 Days Qty: 20 0RF Primary Care Provider: Jeanne Lagunas Referrals: Jeanne Lagunas MD [Primary Care Provider] - Disposition Disposition: Acute Care Hospital Discharge Location: [facility] NIHSS NIHSS 1a. Level of Consciousness: Not alert; 1b. LOC Questions: Answers one question correctly. 1c. LOC Commands: Performs one task correctly. 2. Best Gaze: Forced deviation, 3. Visual: No visual loss 4. Facial Palsy: Partial paralysis (total or near-total paralysis of lower face) 5a. Left Arm: No movement 5b. Right Arm: No drift; arm holds 90 (or 45) degrees for full 10 seconds 6a. Left Leg: No effort against gravity; leg falls to bed immediately 6b. Right Leg: No drift; leg holds 30-degree position for full 5 seconds 7. Limb Ataxia: Absent 8. Sensory: Severe to total sensory loss; 9. Best Language: Severe aphasia; 10. Dysarthria: [id number] dysarthria; 11. Extinction and Inattention: Profound elly-inattention or extinction to more than one modality; Total: 21
[2022-10-04 13:46] LABS: Absolute Lymphocyte Count 1.36 X10^3/uL (0.83-4.51); Absolute Neutrophil Count 7.2 X10^3/uL (2.0-7.7); Basophil# 0.04 X10^3/uL; Basophil% 0.4 % (0-1); Eosinophil# 0.19 X10^3/uL; Hematocrit 35.9 % (37-47); Hemoglobin 11.2 g/dL (12.0-15.0); Lymphocyte # 1.36 X10^3/ul (0.83-4.51); Lymphocyte % 14.4 % (19-41); Mean Corp Hgb Conc 31.2 g/dL (32-36); Mean Corpuscular Hgb 31.3 pg (27.0-32.0); Mean Corpuscular Volume 100.3 fL (81-99); Mean Platelet Vol. 8.8 fl (6.2-12.0); Monocyte# 0.61 X10^3/uL; Monocyte% 6.5 % (0-10); NRBC Flagged by Analyzer 0 % (0-5); Neutrophil # 7.19 X10^3/uL (2.7-7.7); Neutrophil % 76.1 % (47-70); Platelet Count 277 K/mm3 (150-450); RBC Distribution Width SD 51.6 fl (35.1-43.9); Red Blood Count 3.58 M/mm3 (4.2-5.4); White Blood Count 9.5 K/mm3 (4.4-11.0)
[2022-10-04 13:46] LABS: Allen Test Positive; Base Excess 6 mmol/L (-2 to +2); Bicarbonate 31.9 mmol/L (22-26); Blood Gas Specimen Type ART; O2 Delivery Device Cannula; PO2 97 mmHG (75-100); SITE R Radial; SO2 97 % (95-99); Total Carbon Dioxide 34 mmol/L; pCO2 64.1 mmHg (35-45); pH 7.31 (7.35-7.45)
[2022-10-04 13:55] LABS: Partial Thromboplast Time 22.6 Seconds (24.1-36.2); Prothrombin Time (Protime)PT. 13.2 SECONDS (11.7-14.9)
[2022-10-04] MEDS: 0.9% Normal Saline 1,000 ML 100 ML IV (13:56)
--- NOTE | 2022-10-04 14:08 | NURSING ---
[facility] ETA 5PM
[2022-10-04 14:12] LABS: Anion Gap 2 (5-15); BUN 23 mg/dL (7-18); BUN/Creat Ratio 23.2 RATIO (10-20); CPK Total, Creatine Kinase 35 U/L (26-192); Calcium,Total 8.7 mg/dL (8.5-10.1); Chloride 102 mmol/L (98-107); Creatinine, Serum 0.99 mg/dL (0.55-1.02); EST Glomerular Filtration Rate 62 mL/min (>60); Est Glom Filt Rate - Afr Amer 75 mL/min (>60); Estimated Creatinine Clearance 53.74 ml/min; Glucose 158 mg/dL (74-106); Potassium 3.7 mmol/L (3.5-5.1); Sodium Level 138 mmol/L (136-145); Troponin-I HS 5 pg/mL (3.0-54.0)
--- NOTE | 2022-10-04 14:22 | ED.RN ---
After more discussion with family Dr. Reed at [facility] has determined a more recent LKW of around [id number] Reed speaking with Dr. Stock at [facility] side now.
[2022-10-04 16:00] LABS: Troponin-I HS 5 pg/mL (3.0-54.0)
== END 2022-10-04 16:46 | disposition short-term general hospital (02) ==
PROVIDERS: Emergency Provider Emergency Medicine; PCP Family Medicine; Visit Provider Emergency Medicine
DX: I63.311 Cerebral infarction due to thrombosis of right middle cerebral artery (principal); J44.9 Chronic obstructive pulmonary disease, unspecified; I50.9 Heart failure, unspecified; I11.0 Hypertensive heart disease with heart failure; F31.9 Bipolar disorder, unspecified; J96.22 Acute and chronic respiratory failure with hypercapnia; E11.9 Type 2 diabetes mellitus without complications; F17.210 Nicotine dependence, cigarettes, uncomplicated; G89.29 Other chronic pain
CPT/HCPCS: 36600; 51702; 70450; 70496; 70498; 72125; 80048; 82550; 82803; 84443; 84484; 85025; 85610; 85730; 93005; 94002; 96361; 96365; 99285; J2997; J7030; Q9967; A4216

== ENCOUNTER → 2022-10-21 | Outpatient (CLI) | payer MEDICAID, SELFPAY ==
--- NOTE | 2022-10-21 13:05 | BI_ITS ---
MAMMOGRAPHY - BILATERAL SCREENING REASON FOR EXAM: Female, 52 years old. Routine annual screening examination. PERTINENT HISTORY: Non-contributory. TECHNIQUE: Digital bilateral breast vesta (3D mammographic acquisition) in the CC and MLO projections. 2-D mediolateral oblique (MLO) and craniocaudad (CC) views of both breasts were obtained. CAD: Full Field Digital Mammography with Computer Added Detection was performed. COMPARISON: No comparison mammograms available at this time. If any prior films become available, an addendum to this report can be generated. FINDINGS: Breast Composition: The breasts are almost entirely fatty. There is a 2.1 cm x 1.4 cm well-defined nodule in the retroareolar region of the left breast. Correlation with ultrasound is recommended. No other significant abnormalities are identified. BI/SCRN MAMM (CAD)W/VESTA BILAT IMPRESSION: 2.1 cm x 1.4 cm well-defined nodule in the retroareolar region of the left breast. Correlation with ultrasound is recommended. ASSESSMENT CATEGORY: BIRADS Category 0: Incomplete. Need additional imaging evaluation. A letter regarding these results will be sent to the patient by the facility within 30 days. Approximately 10% of breast cancers are not detected by mammography. A normal mammogram should not delay biopsy of a clinically suspicious abnormality. [id number] Electronically Signed: Brian Casey MD at 14:35 EST ,
--- NOTE | 2022-10-21 13:11 | BD_ITS ---
STUDY: DUAL ENERGY X-RAY ABSORPTIOMETRY / DXA REASON FOR EXAM: Female, 52 years old. S92.909A TECHNIQUE: Bone Mineral Density (BMD) measurements of lumbar spine and bilateral hips were obtained. COMPARISON: None. FINDINGS: Lumbar Spine (L1-L4): g/cm2 (0.980) / T-score (-0.6) / Z-score (0.4) Findings are suggestive of normal bone density with a low fracture risk. Left Femur Total: g/cm2 (0.814) / T-score (-1.1) / Z-score (-0.4) Left Femoral Neck: g/cm2 (0.641) / T-score (-1.9) / Z-score (-0.8) Right Femur Total: g/cm2 (0.793) / T-score (-1.2) / Z-score (-0.6) Right Femoral Neck: g/cm2 (0.698) / T-score (-1.4) / Z-score (-0.3) BD/Dexa Bone Density Study IMPRESSION: The patient is considered osteopenic as outlined below according to World Dave Organization (WHO) criteria with a moderate fracture risk. Reference Information: The T-score is the number of standard deviations above or below the standard which is normal for young adults at their peak bone mineral density. The World Health Organization (WHO) interprets the T-scores as follows: Above -1 Normal bone density Between -1 and -2.5 Osteopenia Equal to / or below -2.5 Osteoporosis As a practical clinical guideline, osteopenia may be graded as follows: Mild -1 through -1.5 Moderate -1.6 through -2.0 Severe -2.1 through -2.4 The Z-score is the number of standard deviations above or below age-matched controls. A Z-score of less than -1.5 would be considered abnormal. References: 1. NIH Osteoporosis and Related Bone Diseases www osteo.org 2. International Society for Clinical Densitometry www iscd.org 3. National Osteoporosis Foundation www nof.org Electronically Signed: Brian Casey MD at 13:38 EST ,
== END | disposition home or self-care (01) ==
LOC: OPBD 13:04
PROVIDERS: PCP Family Medicine; Visit Provider Family Medicine
DX: Z12.31 Encounter for screening mammogram for malignant neoplasm of breast (principal); M85.80 Other specified disorders of bone density and structure, unspecified site; S92.909A Unspecified fracture of unspecified foot, initial encounter for closed fracture; N63.20 Unspecified lump in the left breast, unspecified quadrant
CPT/HCPCS: 77063; 77067; 77080

== ENCOUNTER 2022-11-25 15:00 | Outpatient (RCR) | payer MEDICAID, SELFPAY ==
--- NOTE | 2022-11-06 10:58 | HP.PTEVAL_ITS ---
Patient's Visit Information TJ BIGGS is a 52 year old F referred to Physical Therapy by Dr. Jeanne Lagunas MD with a diagnosis of CVA. Date of Evaluation: 11/05/22 Physical Therapist: Janeth Espinosa DPT - Visit Plan Frequency: 2x /Week Duration: 4 Weeks Plan: Focus on LE and core strength/stabilization-proprioception- functional mobility. - Subjective Patient reports that she had another CVA- she was transferred to [facility] and then has now been home for about 2 weeks. Prior to the last stroke she was using a rollator- she feels that she is a fall risk- its been bad since the first stroke- which was 2013 or 2014. She is on 3L or O2 due to COPD and beginnings of CHF. She is able to dress and bathe but does not drive. She does not have stairs- she lives in an apt building- lives alone- one of her friends will go to the grocery for her. She feels that she is not safe to be living alone and would like to be placed in assisted living- she is talking to her brother about arraigning that. Her left leg is weaker this time- she can't feel the right hand. She has also had back surgery in 2006- L5-S1. She reports that she only has pain her back. She has more cramping the legs. She reports that she has had a fall since she was at the hospital- in the bathroom- did not hit her head. The pain in her back is a little more irritated- Worst: 8/10 Agg: movement and not falling Eases: medication Best: 2/10 reports the pain is sharp and shooting. PMHX/Meds: see notes 10/04/22. - Objective Posture: FH, RS- can correct with verbal cues but is unable to maintain. Gait: uses a rollator- good kvng but does have shortened stride. Stairs: asc/desc 8 recip with 2 HR. Sit to Stand: uses single UE. Sensation: WNL to gross touch bilateral. Balance: see FGA. ROM: WFL in all planes but does report pain with lumbar testing. Strength: Core: fair minus, Hip: 4/5 throughout, Knee: 4+/5 Ankle: 5/5 - Balance/Special Test Scores Functional Gait Assessment Score: 20 % Disability: 33.3400 Lower Extremity Functional Score: 15 TUG Test Time Seconds: 15 - Goals Goal 1:: Patient will be I with HEP and progression Goal Time Frame: 4-6 Weeks Goal 2:: Patient will ambulate >300 feet with LRD Goal Time Frame: 4-6 Weeks Goal 3:: Patient will perform TUG test in under 10 seconds Goal Time Frame: 4-6 Weeks Goal 4:: Patient will asc/desc 8 stairs recip with 1 HR Goal Time Frame: 4-6 Weeks Goal 5:: Patient will report 80% improvement Goal Time Frame: 4-6 Weeks - Rehabilitation Potential Physical Therapy Diagnosis: Patient presents with hypomobility- she has decreased LE and core strength/stabilization, proprioception, and muscular endurance leading to poor posture and increased pain with ADL's. Rehabilitation Potential: Fair - Anticipated Interventions Patient/Client Instruction: Educate patient on: Benefits of Fitness Program Therapeutic Exercise to Include: Strength training, Endurance training, Balance training, Coordination, Agility training, Body mechanics, Postural training, Flexibilty training, Gait and locomotor training, Neuromotor development, Dynamic Lumbar Stabilization, Scapular Strength/Stabilization For the Purpose of:: To improve muscle performance and motor function Thank you for the opportunity to evaluate your patient. For Medicare and Medicare HMO plans, please review the plan of care and approve it. It will need to be FAXED BACK to us at [phone] for Medicare purposes. For Medicare only, by signing this I certify the plan of care. Please let me know if there are questions or concerns regarding this plan of care. Physician Signature: Date :
--- NOTE | 2023-05-04 12:44 | HP.PT.NRP ---
Patient Information Patient Information: TJ BIGGS was seen in my office for initial evaluation on 11/05/22. The following Plan of Care was established for this patient: POC Established Initial Frequency: 2x /Week Initial Duration: 4 Weeks Anticipated Interventions Patient/Client Instruction: Educate patient on: Benefits of Fitness Program Therapeutic Exercise to Include: Strength training, Endurance training, Balance training, Coordination, Agility training, Body mechanics, Postural training, Flexibilty training, Gait and locomotor training, Neuromotor development, Dynamic Lumbar Stabilization and Scapular Strength/Stabilization For the Purpose of:: To improve muscle performance and motor function Last Seen Last Seen: This patient was last seen in our office . Pertinent comments regarding their Physical therapy will appear below: Patient has extensive medical history and has not attended PT in over 12 weeks- appropriate to be d/c. At this point I will be discontinuing this patient from physical therapy. I would be happy to see this patient again in the future if found appropriate by the physician. Thank you! ASHLEY OttoT Balance/Gait/Functional tests Balance/Special Test Scores Functional Gait Assessment Score: 20 % Disability: 33.3400 Lower Extremity Functional Score: 15 TUG Test Time Seconds: 15 Tug Test: <20 sec.=mostly independent
== END 2022-11-25 19:00 | disposition home or self-care (01) ==
LOC: PT 15:00
PROVIDERS: PCP Family Medicine; Referring Provider Family Medicine; Visit Provider Family Medicine
DX: I63.9 Cerebral infarction, unspecified (principal)
CPT/HCPCS: 97110; 97162

== ENCOUNTER → 2022-12-02 | Outpatient (CLI) | payer MEDICAID, SELFPAY ==
[2022-12-02 15:41] LABS: Absolute Lymphocyte Count 2.05 X10^3/uL (0.83-4.51); Absolute Neutrophil Count 4.1 X10^3/uL (2.0-7.7); Basophil# 0.06 X10^3/uL; Basophil% 0.9 % (0-1); Eosinophil# 0.26 X10^3/uL; Eosinophils% 3.8 % (0-5); Hematocrit 37.8 % (37-47); Hemoglobin 12.3 g/dL (12.0-15.0); Lymphocyte # 2.05 X10^3/ul (0.83-4.51); Lymphocyte % 30.1 % (19-41); Mean Corp Hgb Conc 32.5 g/dL (32-36); Mean Corpuscular Hgb 32.1 pg (27.0-32.0); Mean Corpuscular Volume 98.7 fL (81-99); Mean Platelet Vol. 9.7 fl (6.2-12.0); Monocyte# 0.37 X10^3/uL; Monocyte% 5.4 % (0-10); NRBC Flagged by Analyzer 0 % (0-5); Neutrophil # 4.06 X10^3/uL (2.7-7.7); Neutrophil % 59.7 % (47-70); Platelet Count 256 K/mm3 (150-450); RBC Distribution Width CV 14.9 % (11.6-14.6); RBC Distribution Width SD 54.4 fl (35.1-43.9); Red Blood Count 3.83 M/mm3 (4.2-5.4); White Blood Count 6.8 K/mm3 (4.4-11.0)
[2022-12-02 16:20] LABS: ALB/GLOB Ratio 1.1 RATIO (0.9-2.4); AST(SGOT) 13 U/L (15-37); Alanine Aminotransfer ALT/SGPT 14 U/L (13-56); Albumin, Serum 3.9 g/dL (3.2-5.0); Alkaline Phosphatase 64 U/L (45-117); Anion Gap 6 (5-15); BUN 29 mg/dL (7-18); BUN/Creat Ratio 30.6 RATIO (10-20); Calcium,Total 9.8 mg/dL (8.5-10.1); Chloride 100 mmol/L (98-107); Creatinine, Serum 0.95 mg/dL (0.55-1.02); EST Glomerular Filtration Rate 65 mL/min (>60); Est Glom Filt Rate - Afr Amer 79 mL/min (>60); Globulin 3.4 g/dL (2.2-4.2); Glucose 100 mg/dL (74-106); Potassium 4.1 mmol/L (3.5-5.1); Protein, Total 7.3 g/dL (6.4-8.2); Sodium Level 139 mmol/L (136-145); Thyroid Stim Hormone (TSH) 0.46 uIU/mL (0.358-3.74)
== END | disposition home or self-care (01) ==
LOC: BFHLAB 13:29
PROVIDERS: PCP Family Medicine; Visit Provider Family Medicine
DX: E11.9 Type 2 diabetes mellitus without complications (principal); E03.9 Hypothyroidism, unspecified; Z86.73 Personal history of transient ischemic attack (TIA), and cerebral infarction without residual deficits
CPT/HCPCS: 36415; 80053; 83036; 84443; 85025

== ENCOUNTER 2022-12-30 18:29 | Emergency (ER) | payer MEDICAID, SELFPAY ==
[2022-12-30 18:30] VITALS: BP 111/73; PULSE 59; RESP 16; TEMP 36.3; O2SAT 100
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
--- NOTE | 2022-12-30 19:02 | CT_ITS ---
EXAM: CT HEAD WITHOUT INTRAVENOUS CONTRAST CLINICAL INDICATION: Confusion TECHNIQUE: Multiple axial images were obtained of the head without intravenous contrast. This CT exam was performed using one or more of the following dose reduction techniques: automated exposure control, adjustment of the mA and/or kV according to patient size, and/or use of iterative reconstruction technique. This report was created using [email or web address] report generation technology. COMPARISON: 10/04/2022 FINDINGS: BRAIN AND EXTRA-AXIAL SPACES: There is CSF anterior right temporal lobe compatible with an arachnoid cyst. There are areas encephalomalacia in the right frontal, bilateral parietal and left occipital lobes. There are also small bilateral cerebellar infarcts which are stable. There is hypoattenuation in the periventricular white matter. No intra- or extra-axial hemorrhage. No intracranial mass or mass effect. No hydrocephalus. Basal cisterns are patent. BONES/JOINTS: Unremarkable. No discrete lytic or blastic abnormalities. SINUSES: Unremarkable as visualized. Clear. MASTOID AIR CELLS: Unremarkable. Clear. ORBITS: Visualized globes, extraocular muscles, optic nerves and retrobulbar fat appear unremarkable. CT/Brain/Head without Contrast IMPRESSION: 1. No acute intracranial abnormality. There has been no change from the reference exam. 2. Bilateral areas of encephalomalacia compatible with remote infarcts. Electronically Signed: Eduardo Goff MD at 20:24 EDT ,
[2022-12-30 19:30] VITALS: BMI 31.2
[2022-12-30 19:31] LABS: Absolute Lymphocyte Count 1.88 X10^3/uL (0.83-4.51); Absolute Neutrophil Count 3.9 X10^3/uL (2.0-7.7); Basophil# 0.05 X10^3/uL; Basophil% 0.8 % (0-1); Eosinophil# 0.25 X10^3/uL; Eosinophils% 3.8 % (0-5); Hematocrit 37.3 % (37-47); Lymphocyte # 1.88 X10^3/ul (0.83-4.51); Lymphocyte % 28.8 % (19-41); Mean Corp Hgb Conc 32.2 g/dL (32-36); Mean Corpuscular Hgb 31.8 pg (27.0-32.0); Mean Corpuscular Volume 98.9 fL (81-99); Monocyte# 0.47 X10^3/uL; Monocyte% 7.2 % (0-10); NRBC Flagged by Analyzer 0 % (0-5); Neutrophil # 3.87 X10^3/uL (2.7-7.7); Neutrophil % 59.2 % (47-70); Platelet Count 227 K/mm3 (150-450); RBC Distribution Width CV 14.2 % (11.6-14.6); Red Blood Count 3.77 M/mm3 (4.2-5.4); White Blood Count 6.5 K/mm3 (4.4-11.0)
[2022-12-30 19:33] VITALS: BP 102/71; PULSE 49; RESP 18; O2SAT 96
[2022-12-30] MEDS: 0.9% Normal Saline 1,000 ML 1000 ML IV (19:35)
[2022-12-30 19:50] LABS: Bacteria 0 SEEN /hpf (None Seen); Mucous, Urine 0 SEEN /hpf (<or=2+); Red Blood Cells-Urine 0 SEEN /hpf (0-5); White Blood Cells 0 SEEN /hpf (0-5)
[2022-12-30 19:54] LABS: Color, Urine Yellow (Yellow); Glucose, Dipstick Normal (Normal); Ketone-Dipstick 5 mg/dl (Negative); Leukocyte Esterase-Dipstick 25 /ul (Negative); Nitrite-Dipstick Negative (Negative); Occult Blood-Urine Negative /ul (Negative); Protein-Dipstick 30 mg/dl (Negative); Specific Gravity, Urine 1.025 (1.002-1.030); Urine Bilirubin Dipstick Negative (Negative); Urine Clarity Sl. Cloudy (Clear); Urine Urobilinogen 4 mg/dl (Normal)
[2022-12-30 19:56] LABS: Bedside Glucose 147 mg/dL (74-106)
[2022-12-30 19:56] LABS: ALB/GLOB Ratio 1.1 RATIO (0.9-2.4); AST(SGOT) 9 U/L (15-37); Alanine Aminotransfer ALT/SGPT 11 U/L (13-56); Albumin, Serum 3.4 g/dL (3.2-5.0); Alkaline Phosphatase 57 U/L (45-117); Anion Gap 4 (5-15); BUN 19 mg/dL (7-18); BUN/Creat Ratio 19.5 RATIO (10-20); Calcium,Total 9.5 mg/dL (8.5-10.1); Chloride 107 mmol/L (98-107); Creatinine, Serum 0.97 mg/dL (0.55-1.02); EST Glomerular Filtration Rate 63 mL/min (>60); Est Glom Filt Rate - Afr Amer 77 mL/min (>60); Estimated Creatinine Clearance 54.85 ml/min; Globulin 3.2 g/dL (2.2-4.2); Glucose 139 mg/dL (74-106); Lipase 181 U/L (73-393); Protein, Total 6.6 g/dL (6.4-8.2); Sodium Level 144 mmol/L (136-145); Thyroid Stim Hormone (TSH) 0.18 uIU/mL (0.358-3.74); Troponin-I HS 5 pg/mL (3.0-54.0)
--- NOTE | 2022-12-30 19:56 | RAD_ITS ---
EXAM: XR CHEST, 2 VIEWS CLINICAL INDICATION: Shortness of breath TECHNIQUE: Frontal and lateral views of the chest. This report was created using [employer] report generation technology. COMPARISON: 11/19/2021 FINDINGS: LUNGS AND PLEURAL SPACES: Unremarkable. No consolidation or edema. No pneumothorax. No effusion. HEART: Unremarkable. Cardiac silhouette not enlarged. MEDIASTINUM: Central airways and mediastinal contour are unremarkable. BONES/JOINTS: Unremarkable. SOFT TISSUES: Unremarkable. RAD/Chest PA and Lateral IMPRESSION: No radiographic evidence of acute cardiopulmonary disease. Electronically Signed: Eduardo Goff MD at 20:24 EDT ,
[2022-12-30 20:05] LABS: Ammonia < 10.0 umol/L (11-32); Lactic Acid 0.7 mmol/L (0.4-1.9)
[2022-12-30 20:13] LABS: Calcium Oxalate Crystals Ur 1+ /hpf (<or=2+); Squamous Epithelial Cells - UA 10-25 SEEN /hpf (5-10)
[2022-12-30 20:23] VITALS: BP 116/88; PULSE 54; RESP 19; O2SAT 100
[2022-12-30] MEDS: Ipratropium/Albuterol Sulfate 3 ML AMPUL.NEB INHALATION (20:27)
[2022-12-30 20:28] VITALS: PULSE 52; RESP 18; O2SAT 98
[2022-12-30 21:16] VITALS: BP 116/68; PULSE 54; RESP 16; O2SAT 99
== END 2022-12-30 21:17 | disposition home or self-care (01) ==
PROVIDERS: Emergency Provider Emergency Medicine; PCP Family Medicine; Visit Provider Emergency Medicine
DX: R41.0 Disorientation, unspecified (principal); J44.9 Chronic obstructive pulmonary disease, unspecified; I11.0 Hypertensive heart disease with heart failure; I50.9 Heart failure, unspecified; E11.9 Type 2 diabetes mellitus without complications; F17.210 Nicotine dependence, cigarettes, uncomplicated; R51.9 Headache, unspecified; Z20.822 Contact with and (suspected) exposure to COVID-19
CPT/HCPCS: 70450; 71046; 80053; 81001; 82140; 82962; 83605; 83690; 84443; 84484; 85025; 87428; 94640; 96360; 99284; J7030

== ENCOUNTER 2023-01-07 06:03 | Inpatient (IN) | payer MEDICAID, SELFPAY ==
[2023-01-07] VITALS (11 sets, daily range): BP systolic 94–107; BP diastolic 61–79; PULSE 47–83; RESP 14–18; TEMP 36.3–36.9; O2SAT 89–99; BMI 29.2
--- NOTE | 2023-01-07 06:08 | CT_ITS ---
EXAM: CT HEAD WITHOUT INTRAVENOUS CONTRAST CLINICAL INDICATION: confusion confusion TECHNIQUE: Multiple axial images were obtained of the head without intravenous contrast. This CT exam was performed using one or more of the following dose reduction techniques: automated exposure control, adjustment of the mA and/or kV according to patient size, and/or use of iterative reconstruction technique. This report was created using [employer] report generation technology. RADIATION DOSE: CTDIvol = 44.99 mGy, DLP = 796.11 mGy-cm COMPARISON: None. FINDINGS: BRAIN AND EXTRA-AXIAL SPACES: There are regions of encephalomalacia in bilateral frontal, bilateral parietal, right temporal, and left occipital lobes consistent with old infarctions. There are also old infarctions of the right basal ganglia and right cerebellar hemisphere. There is cerebral atrophy. There are microvascular changes in supratentorial white matter. No intra- or extra-axial hemorrhage. No intracranial mass or mass effect. No hydrocephalus. Basal cisterns are patent. BONES/JOINTS: Unremarkable. No discrete lytic or blastic abnormalities. VASCULATURE: There is atherosclerotic calcification of the cavernous carotid arteries. SINUSES: There is a small polyp or retention cyst in the right maxillary sinus. MASTOID AIR CELLS: Unremarkable. Clear. ORBITS: Visualized globes, extraocular muscles, optic nerves and retrobulbar fat appear unremarkable. CT/Brain/Head without Contrast IMPRESSION: 1. 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 2. No demonstrated acute intracranial process. Electronically Signed: jT Kenney MD at 7:07 EDT Reading Location ID and State: [facility] / [place] , Service support ,
--- NOTE | 2023-01-07 06:11 | EX.ED.DYSGE1 ---
HPI History of Present Illness Chief Complaint: Weakness Informant: patient and EMS Onset/Context/Timing Onset: Days (2-3) Context: Gradual Onset Timing: Continuous Quality: Weak Location: All over Current Severity: Severe Maximum Severity: Severe Narrative Narrative: Patient has been weak for couple days, since last night according to EMS, daughter who is not currently present, noticed she was confused which progressed into this morning. The patient denies any specific complaints but on review of systems admits that she has been coughing more than usual and having some mild dyspnea. She has a history of COPD. Limited information due to confusion, see ROS for more details. States she had a history of a stroke that gave her weakness in the right side, it never came back to normal. Further history obtained from the patient later, she states she is post to be on home oxygen but has not been wearing it because she cannot afford it, it ran out, and now she does not have any. [facility] Medical History Anxiety Asthma Bipolar disorder Chronic pain Congestive heart failure (CHF) COPD (chronic obstructive pulmonary disease) Diabetes Dysthymic disorder Essential hypertension GERD (gastroesophageal reflux disease) Irregular heart beat Obesity On home oxygen therapy Osteopenia Pulmonary embolism Smoker Sprain of left foot Stroke/cerebrovascular accident Tobacco use disorder Home Medications albuterol sulfate 90 mcg/actuation aerosol inhaler 2 puff inhalation Q4H PRN Shortness Of Breath Or Wheezing 03/17/21 [History Last Taken 3 Days Ago ~12/27/22] aspirin 81 mg tablet,delayed release 81 mg PO DAILY heart health 03/17/21 [History Last Taken 3 Days Ago ~12/27/22] cetirizine 10 mg tablet 10 mg PO DAILY muscle spasms 03/17/21 [History Last Taken 3 Days Ago ~12/27/22] clopidogrel 75 mg tablet 75 mg PO DAILY antiplatelet 03/17/21 [History Last Taken 3 Days Ago ~12/27/22] fluoxetine 20 mg capsule 60 mg PO DAILY mood 03/17/21 [History Last Taken 3 Days Ago ~12/27/22] folic acid 1 mg tablet 1 mg PO DAILY supplement 03/17/21 [History Last Taken 3 Days Ago ~12/27/22] ipratropium 0.5 mg-albuterol 3 mg (2.5 mg base)/3 mL nebulization soln 3 ml inhalation TID breathing 03/17/21 [History Last Taken 3 Days Ago ~12/27/22] levothyroxine 75 mcg tablet 75 mcg PO DAILY thyroid 03/17/21 [History Last Taken 3 Days Ago ~12/27/22] losartan 25 mg tablet 25 mg PO DAILY BP/heart 03/17/21 [History Last Taken 3 Days Ago ~12/27/22] metformin 500 mg tablet 500 mg PO BID diabetes 03/17/21 [History Last Taken 3 Days Ago ~12/27/22] mometasone-formoterol HFA 200 mcg-5 mcg/actuation aerosol inhaler (Dulera) 2 inh inhalation BID breathing 03/17/21 [History Last Taken 3 Days Ago ~12/27/22] montelukast 10 mg tablet 10 mg PO QHS breathing 03/17/21 [History Last Taken 3 Days Ago ~12/27/22] pravastatin 10 mg tablet 10 mg PO DAILY cholesterol 03/17/21 [History Last Taken 3 Days Ago ~12/27/22] trazodone 100 mg tablet 200 mg PO QHS sleep 03/17/21 [History Last Taken 3 Days Ago ~12/27/22] clonazepam 0.5 mg tablet 0.5 mg PO DAILY PRN Anxiety 07/14/21 [History Last Taken 3 Days Ago ~12/27/22] albuterol sulfate 2.5 mg/3 mL (0.083 %) solution for nebulization 2.5 mg inhalation Q4H PRN copd 11/19/21 [History Last Taken 3 Days Ago ~12/27/22] cholecalciferol (vitamin D3) 125 mcg (5,000 unit) tablet (Vitamin D3) 125 mcg PO QWEEK vitamin 11/19/21 [History Last Taken 3 Days Ago ~12/27/22] ondansetron 8 mg disintegrating tablet 8 mg PO Q12H PRN Nausea 11/19/21 [History Last Taken 3 Days Ago ~12/27/22] potassium chloride 20 mEq tablet,extended release 20 meq PO BID supplement 11/19/21 [History Last Taken 3 Days Ago ~12/27/22] roflumilast 250 mcg tablet (Daliresp) 250 mcg PO DAILY copd 11/19/21 [History Last Taken 3 Days Ago ~12/27/22] tizanidine 4 mg tablet 4 mg PO Q8H PRN Muscle Spasm 11/19/21 [History Last Taken 3 Days Ago ~12/27/22] pantoprazole 40 mg tablet,delayed release (Protonix) 40 mg PO BID #60 tabs 11/20/21 [Rx Last Taken 3 Days Ago ~12/27/22] gabapentin 600 mg tablet 600 mg PO TID nerve pain 12/30/22 [History Last Taken 3 Days Ago ~12/27/22] Allergy/AdvReac Type Severity Reaction Status Date / Time alprazolam [From Xanax] AdvReac makes pt Verified 06/20/22 15:11 violent Family History Mother COPD (chronic obstructive pulmonary disease) Father Hypertension Surgical History H/O tubal ligation History of cholecystectomy History of left heart catheterization (11/19/21) History of salpingo-oophorectomy Social History household members: family Smoking Status: Current every day smoker tobacco type: cigarettes alcohol intake: current alcohol intake frequency: a few times a month substance use type: does not use ROS ROS ED Review of Systems ROS Unobtainable: due to mental status Constitutional Constitutional ED: Reports weakness; Denies chills or fever(s) Eyes Eyes: Denies change in vision or diplopia ENT ENT ED: Denies sore throat Cardiovascular Cardiovascular: Denies chest pain Respiratory/Chest Respiratory/Chest: Reports cough and dyspnea Gastrointestinal Gastrointestinal: Denies abdominal pain, diarrhea, nausea or vomiting Genitourinary Genitourinary ED: Denies dysuria or hematuria Musculoskeletal Musculoskeletal: Denies back pain or neck pain Integumentary Denies abscess or rash Neurologic Neurologic: Reports as per HPI; Denies headache(s) or paresthesias Psychiatric Psychiatric: Denies suicidal thoughts EXAM Physical Exam Const Vital Signs: 01/07/23 06:05 01/07/23 06:21 01/07/23 06:26 Temperature 97.4 F L Temperature Source Temporal Pulse Rate 83 82 65 Respiratory Rate 15 14 18 Respiratory Pattern Normal Blood Pressure 107/79 107/79 Blood Pressure Mean 88 88 Pulse Ox 94 89 Oxygen Delivery Method Room Air Room Air Oxygen Flow Rate (L/min) 01/07/23 06:52 Temperature Temperature Source Pulse Rate Respiratory Rate Respiratory Pattern Blood Pressure Blood Pressure Mean Pulse Ox Oxygen Delivery Method Nasal Cannula Oxygen Flow Rate (L/min) 2 Positive well nourished and well developed Constitutional Narrative: Somnolent but alerts easily to voice General Appearance ED: well developed and NAD HEENT Reports moist mucous membranes normocephalic and atraumatic Eyes PERRL and EOMs intact bilaterally Neck full ROM, no lymphadenopathy, supple and no JVD Resp normal respiratory effort Resp Narrative: Expiratory wheezes, equal breath sounds bilaterally, no other abnormal breath sounds. No respiratory distress. Cardio regular rate, regular rhythm and no murmurs Rate: Negative for tachycardic GI non-tender and non-distended Auscultation: normoactive bowel sounds Palpation: soft Back/Spine no CVA tenderness General Back: other FROM Extremity normal to inspection General Extremety ED: Negative for edema, pulses abnormal or tenderness General Extremity: Negative for edema or pulses abnormal Neuro CN's II-XII intact bilaterally and no sensory deficits noted Neuro Narrative: Disoriented to time including the month and the year. Oriented to age, place, city, person. Sensorium / Orientation: awake and orientation impaired Motor Exam: general weakness Psych mental status grossly normal Skin no rashes or lesions noted and no wounds NIHSS NIHSS Initial: 1a Level of Consciousness: 1 1b LOC Questions (Score 2 if aphasic/stupor): 1 1c LOC Commands (Only score 1st attempt): 0 2 Best Gaze (If aphasic, use reflexive mvmts.): 0 3 Visual: 0 4 Facial Palsy: 0 5 Motor Arm Right (UN = amputation/fusion): 1 5 Motor Arm Left: 1 6 Motor Leg Right: 1 6 Motor Leg Left: 1 7 Limb ataxia (Only + if out of proportion): 0 8 Sensory (Aphasia/stupor=0 or 1, coma=2): 0 9 Best Language: 0 10 Dysarthria (mute, coma=2, intubated=UN): 0 11 Extinction and Inattention (only scored if +): 0 Total Score: 6 MDM MDM MDM Narrative Medical decision making narrative: EMS call went out initially as speaking funny. They agree the patient did not seem to be an acute stroke, I agree with that as well. She is not aphasic or dysarthric more just confused. NIHSS was performed as a screening exam, she is not lateralizing, and I do not think this is an acute stroke. Given her mild lethargy, confusion, and history of COPD, an ABG was obtained to evaluate for hypercapnia. She appears to be compensated, and not acutely hypercapnic on my interpretation of the ABG which is as follows: 7.35/57.6/75.1/[address] head images, they appear to show old encephalomalacia with no acute hemorrhage. My interpretation of the CT agrees with that of the radiologist. I interpreted two-view chest x-ray as chronic changes, no acute infiltrates/consolidation, mediastinum appears to be narrowing within normal limits, no significant changes compared with the prior x-ray 1 week ago. Patient is mildly somnolent, she arouses easily. GCS 13 due to this. She has mild creatinine elevation, but does not appear to be significantly prerenal, the rest of her labs are unremarkable including a troponin. My suspicion is that she may be encephalopathic due to being hypoxic recently; this may have been evident with her recent ED encounter as well, although it may not have been known to the physician, as it was not known to this 1 until the patient volunteered this information later to one of the other staff members. She was hypoxic on room air now that we have her on oxygen she is doing better. Nebulizer treatment helped. We will provide Solu-Medrol empirically for COPD exacerbation and admit her to the hospital. Patient has not provided a urine specimen yet, that is the only test still pending at this time. History & Record Review Discussion w/independent historian: EMS personnel and Patient Additional record(s) reviewed:: Prior ED visit (1 week ago for confusion that resolved in ED, negative work-up DC'd home) Lab Data Attestation: I reviewed the patient's lab results. Labs: Laboratory Results - last 24 hr 01/07/23 01/07/23 06:38 06:38 WBC 7.0 RBC 3.95 L Hgb 13.0 Hct 39.1 MCV 99.0 MCH 32.9 H MCHC 33.2 RDW Std Deviation 50.8 H RDW Coeff of Kirstie 13.9 Plt Count 198 MPV 9.5 Immature Gran % (Auto) 0.300 Neut % (Auto) 66.6 Lymph % (Auto) 21.5 [place] % (Auto) 8.7 Eos % (Auto) 2.3 Baso % (Auto) 0.6 Absolute Neuts (auto) 4.7 Absolute Lymphs (auto) 1.50 Nucleated RBC % 0 Sodium 138 Potassium 4.3 Chloride 104 Carbon Dioxide 31.0 Anion Gap 3 L BUN 17 Creatinine 1.22 H Estim Creat Clear Calc 43.61 Est GFR (MDRD) Af Amer 59 L Est GFR (MDRD) Non-Af 49 L BUN/Creatinine Ratio 13.9 Glucose 131 H Calcium 9.4 Troponin I High Sens 3 ABG Data ABG results: ABG 01/07/23 06:36 Specimen Type ART Sample Site R Brach pH 7.35 Bicarbonate Actual 31.6 H Total CO2 33 Base Excess 6 H O2 Saturation 94 L ABG pCO2 57.6 H ABG pO2 75 O2 Delivery Device Cannula Liter Flow 2.0 Radiography Diagnostic Testing: Clinical Impression(s) from Imaging Studies Brain CT 01/07/23 06:08 IMPRESSION: 1. 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 2. No demonstrated acute intracranial process. Electronically Signed: Tj Kenney MD at 7:07 EDT , Rhythm Strip Rhythm Strip: Sinus Rhythm Rate: 72 Ectopy: None EKG Initial EKG: Attestation: I personally reviewed and interpreted this EKG as follows: Interpretation: Sinus Rhythm, No Acute Injury Pattern and RBBB Prior EKG tracings: available for review Prior: Unchanged Differential Diagnosis Chest pain/SOB: ACS, pneumonia, CHF and COPD Abdominal Pain: UTI Differential Diagnosis: metabolic disorder; ICH Management Discussion w/another healthcare provider: Hospitalist (Dr. Horner) Discharge Plan Dx/Rx/DC Orders Clinical Impression: Encephalopathy acute, Declining functional status, Chronic respiratory failure with hypoxia, COPD exacerbation Disposition Disposition: Merged with [facility]
[2023-01-07] MEDS: Ipratropium/Albuterol Sulfate 3 ML AMPUL.NEB INHALATION ×5 (06:16→22:22)
[2023-01-07 06:41] LABS: Base Excess 6 mmol/L (-2 to +2); Bicarbonate 31.6 mmol/L (22-26); Blood Gas Specimen Type ART; O2 Delivery Device Cannula; PO2 75 mmHG (75-100); SITE R Brach; SO2 94 % (95-99); Total Carbon Dioxide 33 mmol/L; pCO2 57.6 mmHg (35-45); pH 7.35 (7.35-7.45)
[2023-01-07 06:46] LABS: Absolute Neutrophil Count 4.7 X10^3/uL (2.0-7.7); Basophil# 0.04 X10^3/uL; Basophil% 0.6 % (0-1); Eosinophil# 0.16 X10^3/uL; Eosinophils% 2.3 % (0-5); Hematocrit 39.1 % (37-47); Lymphocyte % 21.5 % (19-41); Mean Corp Hgb Conc 33.2 g/dL (32-36); Mean Corpuscular Hgb 32.9 pg (27.0-32.0); Mean Platelet Vol. 9.5 fl (6.2-12.0); Monocyte# 0.61 X10^3/uL; Monocyte% 8.7 % (0-10); NRBC Flagged by Analyzer 0 % (0-5); Neutrophil # 4.66 X10^3/uL (2.7-7.7); Neutrophil % 66.6 % (47-70); Platelet Count 198 K/mm3 (150-450); RBC Distribution Width CV 13.9 % (11.6-14.6); RBC Distribution Width SD 50.8 fl (35.1-43.9); Red Blood Count 3.95 M/mm3 (4.2-5.4)
--- NOTE | 2023-01-07 06:55 | RAD_ITS ---
EXAM: XR CHEST, 2 VIEWS CLINICAL INDICATION: cough sob cough sob TECHNIQUE: Frontal and lateral views of the chest. This report was created using [employer] report generation technology. COMPARISON: Chest x-ray 12/30/2022. FINDINGS: LUNGS AND PLEURAL SPACES: Unremarkable. No consolidation or edema. No pneumothorax. No effusion. HEART: Unremarkable. Cardiac silhouette not enlarged. MEDIASTINUM: Central airways and mediastinal contour are unremarkable. BONES/JOINTS: There are multilevel degenerative changes in the visualized spine. SOFT TISSUES: Unremarkable. VASCULATURE: There is atherosclerotic calcification of the aortic arch. RAD/Chest PA and Lateral IMPRESSION: No acute findings in the chest. Electronically Signed: Tj Kenney MD at 7:10 EDT Reading Location ID and State: [facility] / [place] , Service support ,
[2023-01-07 07:03] LABS: Anion Gap 3 (5-15); BUN 17 mg/dL (7-18); BUN/Creat Ratio 13.9 RATIO (10-20); Calcium,Total 9.4 mg/dL (8.5-10.1); Chloride 104 mmol/L (98-107); Creatinine, Serum 1.22 mg/dL (0.55-1.02); EST Glomerular Filtration Rate 49 mL/min (>60); Est Glom Filt Rate - Afr Amer 59 mL/min (>60); Estimated Creatinine Clearance 43.61 ml/min; Glucose 131 mg/dL (74-106); Potassium 4.3 mmol/L (3.5-5.1); Sodium Level 138 mmol/L (136-145); Troponin-I HS 3 pg/mL (3.0-54.0)
--- NOTE | 2023-01-07 07:10 | PCM.HP.STD ---
[facility] - General General Date of Admission: 01/07/23 Date of Service: 01/07/23 Chief Complaint: Lethargy HPI Narrative TJ BIGGS, is a 52 F with past medical history significant for diabetes mellitus type 2, previous history of CVA as well as COPD who presents with a 3-day history of lethargy. Patient had apparently run out of her oxygen and had gotten progressively weak. She was reported to be confused on the morning of her admission. She was brought to the emergency department work-up including CT of the head came back unremarkable. She was however found to have mild bronchospasm and was hypoxic. An assessment of COPD with acute mild exacerbation made admitted to regular nursing floor for further management [facility] Medical History Anxiety Asthma Bipolar disorder Chronic pain Congestive heart failure (CHF) COPD (chronic obstructive pulmonary disease) Diabetes Dysthymic disorder Essential hypertension GERD (gastroesophageal reflux disease) Irregular heart beat Obesity On home oxygen therapy Osteopenia Pulmonary embolism Smoker Sprain of left foot Stroke/cerebrovascular accident Tobacco use disorder Home Medications albuterol sulfate 90 mcg/actuation aerosol inhaler 2 puff inhalation Q4H PRN Shortness Of Breath Or Wheezing 03/17/21 [History Last Taken 3 Days Ago ~12/27/22] aspirin 81 mg tablet,delayed release 81 mg PO DAILY heart health 03/17/21 [History Last Taken 3 Days Ago ~12/27/22] cetirizine 10 mg tablet 10 mg PO DAILY muscle spasms 03/17/21 [History Last Taken 3 Days Ago ~12/27/22] clopidogrel 75 mg tablet 75 mg PO DAILY antiplatelet 03/17/21 [History Last Taken 3 Days Ago ~12/27/22] fluoxetine 20 mg capsule 60 mg PO DAILY mood 03/17/21 [History Last Taken 3 Days Ago ~12/27/22] folic acid 1 mg tablet 1 mg PO DAILY supplement 03/17/21 [History Last Taken 3 Days Ago ~12/27/22] ipratropium 0.5 mg-albuterol 3 mg (2.5 mg base)/3 mL nebulization soln 3 ml inhalation TID breathing 03/17/21 [History Last Taken 3 Days Ago ~12/27/22] levothyroxine 75 mcg tablet 75 mcg PO DAILY thyroid 03/17/21 [History Last Taken 3 Days Ago ~12/27/22] losartan 25 mg tablet 25 mg PO DAILY BP/heart 03/17/21 [History Last Taken 3 Days Ago ~12/27/22] metformin 500 mg tablet 500 mg PO BID diabetes 03/17/21 [History Last Taken 3 Days Ago ~12/27/22] mometasone-formoterol HFA 200 mcg-5 mcg/actuation aerosol inhaler (Dulera) 2 inh inhalation BID breathing 03/17/21 [History Last Taken 3 Days Ago ~12/27/22] montelukast 10 mg tablet 10 mg PO QHS breathing 03/17/21 [History Last Taken 3 Days Ago ~12/27/22] pravastatin 10 mg tablet 10 mg PO DAILY cholesterol 03/17/21 [History Last Taken 3 Days Ago ~12/27/22] trazodone 100 mg tablet 200 mg PO QHS sleep 03/17/21 [History Last Taken 3 Days Ago ~12/27/22] clonazepam 0.5 mg tablet 0.5 mg PO DAILY PRN Anxiety 07/14/21 [History Last Taken 3 Days Ago ~12/27/22] albuterol sulfate 2.5 mg/3 mL (0.083 %) solution for nebulization 2.5 mg inhalation Q4H PRN copd 11/19/21 [History Last Taken 3 Days Ago ~12/27/22] cholecalciferol (vitamin D3) 125 mcg (5,000 unit) tablet (Vitamin D3) 125 mcg PO QWEEK vitamin 11/19/21 [History Last Taken 3 Days Ago ~12/27/22] ondansetron 8 mg disintegrating tablet 8 mg PO Q12H PRN Nausea 11/19/21 [History Last Taken 3 Days Ago ~12/27/22] potassium chloride 20 mEq tablet,extended release 20 meq PO BID supplement 11/19/21 [History Last Taken 3 Days Ago ~12/27/22] roflumilast 250 mcg tablet (Daliresp) 250 mcg PO DAILY copd 11/19/21 [History Last Taken 3 Days Ago ~12/27/22] tizanidine 4 mg tablet 4 mg PO Q8H PRN Muscle Spasm 11/19/21 [History Last Taken 3 Days Ago ~12/27/22] pantoprazole 40 mg tablet,delayed release (Protonix) 40 mg PO BID #60 tabs 11/20/21 [Rx Last Taken 3 Days Ago ~12/27/22] gabapentin 600 mg tablet 600 mg PO TID nerve pain 12/30/22 [History Last Taken 3 Days Ago ~12/27/22] Allergy/AdvReac Type Severity Reaction Status Date / Time alprazolam [From Xanax] AdvReac makes pt Verified 06/20/22 15:11 violent Family History Mother COPD (chronic obstructive pulmonary disease) Father Hypertension Surgical History H/O tubal ligation History of cholecystectomy History of left heart catheterization (11/19/21) History of salpingo-oophorectomy Social History household members: family Smoking Status: Current every day smoker tobacco type: cigarettes alcohol intake: current alcohol intake frequency: a few times a month substance use type: does not use ROS Review of Systems ROS Unobtainable: due to encephalopathy Vital Signs Vital Signs Vital Signs: 01/07/23 06:05 01/07/23 06:21 01/07/23 06:26 Temperature 97.4 F L Temperature Source Temporal Pulse Rate 83 82 65 Respiratory Rate 15 14 18 Respiratory Pattern Normal Blood Pressure 107/79 107/79 Blood Pressure Mean 88 88 Pulse Ox 94 89 Oxygen Delivery Method Room Air Room Air Oxygen Flow Rate (L/min) 01/07/23 06:52 Temperature Temperature Source Pulse Rate Respiratory Rate Respiratory Pattern Blood Pressure Blood Pressure Mean Pulse Ox Oxygen Delivery Method Nasal Cannula Oxygen Flow Rate (L/min) 2 Weight Weight: 77 kg Body Mass Index (BMI) 30.0 Physical Exam Narrative GENERAL: Lethargic but easily arousable HEENT: Atraumatic; normocephalic EYES; Anicteric, Normal Conjunctiva NECK; supple, normal thyroid, RESPIRATORY: Diminished to auscultation with occasional wheezes CARDIOVASCULAR: Regular S1 S2, GI: soft, normoactive bowel sounds, : No Renal angle tenderness; EXTREMITIES: No edema, no clubbing, MUSCULOSKELETAL: no muscle wasting NEURO: no lateralizing signs. SKIN: No rash PSYCH; Flat affect Results Lab / Micro Data Result Diagrams: 01/07/23 06:38 01/07/23 06:38 Labs: Laboratory Results - last 24 hr 01/07/23 06:38: WBC 7.0, RBC 3.95 L, Hgb 13.0, Hct 39.1, MCV 99.0, MCH 32.9 H, MCHC 33.2, RDW Std Deviation 50.8 H, RDW Coeff of Kirstie 13.9, Plt Count 198, MPV 9.5, Immature Gran % (Auto) 0.300, Neut % (Auto) 66.6, Lymph % (Auto) 21.5, [place] % (Auto) 8.7, Eos % (Auto) 2.3, Baso % (Auto) 0.6, Absolute Neuts (auto) 4.7, Absolute Lymphs (auto) 1.50, Nucleated RBC % 0 01/07/23 06:38: Sodium 138, Potassium 4.3, Chloride 104, Carbon Dioxide 31.0, Anion Gap 3 L, BUN 17, Creatinine 1.22 H, Estim Creat Clear Calc 43.61, Est GFR (MDRD) Af Amer 59 L, Est GFR (MDRD) Non-Af 49 L, BUN/Creatinine Ratio 13.9, Glucose 131 H, Calcium 9.4, Troponin I High Sens 3 Micro: Microbiology 01/07/23 06:20 Nasal Secretion SARS-CoV-2 & FLU Antigen (Rapid) - Final ABG Data ABG results: ABG 01/07/23 06:36 Specimen Type ART Sample Site R Brach pH 7.35 Bicarbonate Actual 31.6 H Total CO2 33 Base Excess 6 H O2 Saturation 94 L ABG pCO2 57.6 H ABG pO2 75 O2 Delivery Device Cannula Liter Flow 2.0 Rhythm Strip Rhythm Strip: Sinus Rhythm Rate: 72 Ectopy: None Radiology Impression Brain CT 01/07/23 06:08 IMPRESSION: 1. 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 2. No demonstrated acute intracranial process. Electronically Signed: Tj Kenney MD at 7:07 EDT , Assessment & Plan Assessment/Plan (1) COPD exacerbation: PLAN: Plan Patient is a 52-year-old lady with history of COPD dependent on oxygen presented with increasing generalized weakness 1.? COPD with acute exacerbation ?Patient admitted to regular nursing floor managed with bronchodilator treatment, supplemental oxygen and systemic steroid.? 2.? Chronic hypoxic respiratory failure ?Secondary to COPD patient is on Baseline home oxygen. Patient is apparently on oxygen and has run out for the past couple of days 3.? Diabetes mellitus type II -patient's oral hypoglycemics held. Placed on long acting insulin, Accu-Cheks a.c. and at bedtime and covered with sliding scale insulin 4.? Hypertension - Blood pressure controlled, home medications continued with dose adjustment as needed 5.? Dyslipidemia -Patient is on statin therapy, continued at home dose 6.? Hypothyroidism - Patient is on levothyroxine home dose continued 7.? Chronic congestive heart failure with preserved ejection fraction ?Patient is on diuretics did continue 8. Physical deconditioning - Requested for PT OT eval and health social work professor to assist with discharge planning 9. DVT prophylaxis - On enoxaparin Time spent in the patient's overall evaluation,decision-making process, review of diagnostic data, adjustment of management, discussion with other providers, nursing nursing and ancillary staff involved in patient's care documentation, 60 Minutes Charges/Coding Visit Charges Inpatient E&M: 89493 Init Hosp L2
--- NOTE | 2023-01-07 07:18 | NURSING ---
MED SURG KITTOE ENCEPHALOPATHY, FUNCTIONAL DECLINE, COPD EXAC
[2023-01-07] MEDS: 0.9% Normal Saline 1,000 ML 150 ML IV (07:24)
[2023-01-07] MEDS: MethylPREDNISolone 125 MG/2 ML Vial IV (07:24)
[2023-01-07 08:03] LABS: Thyroid Stim Hormone (TSH) 0.35 uIU/mL (0.358-3.74)
[2023-01-07] MEDS: Enoxaparin 30 MG/0.3 ML Syringe SC (12:38)
[2023-01-07] MEDS: Azithromycin 250 MG Tablet 500 MG PO (12:38)
[2023-01-07] MEDS: predniSONE 20 MG Tablet 40 MG PO (12:38)
[2023-01-07] MEDS: guaiFENesin 600 MG Tablet PO ×2 (12:38→21:55)
[2023-01-07] MEDS: 0.9% Normal Saline 1,000 ML 125 ML IV ×2 (12:47→21:12)
[2023-01-07 13:26] LABS: Bedside Glucose 147 mg/dL (74-106)
--- NOTE | 2023-01-07 15:58 | CHAPLAIN ---
Type of Pastoral Visit _x__ Initial Visit ___ Follow-up Visit ___ On-call Visit ___ General Patient Visit ___ Spiritual Assessment ___ Family Conference ___ Bereavement ___ Rapid Response ___ Code Blue ___ Other (describe below) Pastoral Care Referral From _x__ Patient ___ Family ___ Nurse ___ Physician ___ Staff Development Coordinator Rn ___ Film Masker ___ Other (describe below) Sacrament/Intervention _x__ Active listening ___ Anointing ___ Taoist ___ Bereavement ___ Communion ___ Kinza exploration ___ ___ Life review _x__ Prayer ___ Reconciliation ___ Sacrament of Sick _x__ Supportive presence ___ Wedding ___ Other (describe below) Pastoral Comments offer of support; open ended questions about concerns and worries, about coping and activities that bring hope or peace; pt states she has worries about life but not specific; only answer pt could think of for coping was to pray; when asked about support pt only indicated that she had a brother; pt did appear happy to report that she would be helped in the future by palliative care; patience welcomed prayer; pt appeared tired and closed her eyes after prayer was done
[2023-01-07] MEDS: Potassium Chloride Oral Tablet 20 MEQ PO (15:59)
[2023-01-07] MEDS: Insulin Lispro 100 UNIT/ML INSULN.PEN SC ×2 (16:01→21:55)
[2023-01-07 16:26] LABS: Bedside Glucose 287 mg/dL (74-106)
[2023-01-07] MEDS: Montelukast 10 MG Tablet PO (21:55)
[2023-01-07] MEDS: Pantoprazole Sodium 40 MG Tablet PO (21:55)
[2023-01-07] MEDS: Pravastatin 20 MG Tablet 10 MG PO (21:56)
[2023-01-07] MEDS: Gabapentin 600 MG Tablet PO (21:56)
[2023-01-07] MEDS: traZODone 100 MG Tablet 200 MG PO (21:56)
[2023-01-07 22:35] LABS: Bedside Glucose 247 mg/dL (74-106)
[2023-01-08] VITALS (13 sets, daily range): BP systolic 97–103; BP diastolic 60–72; PULSE 50–76; RESP 17–19; TEMP 36.4–37.5; O2SAT 87–99
[2023-01-08] MEDS: Ipratropium/Albuterol Sulfate 3 ML AMPUL.NEB INHALATION ×6 (03:41→22:48)
[2023-01-08] MEDS: Insulin Lispro 100 UNIT/ML INSULN.PEN SC ×4 (06:44→22:14)
[2023-01-08] MEDS: Levothyroxine 75 MCG Tablet PO (06:44)
[2023-01-08] MEDS: Gabapentin 600 MG Tablet PO ×3 (06:45→22:13)
[2023-01-08 07:05] LABS: Bedside Glucose 191 mg/dL (74-106)
[2023-01-08 07:37] LABS: Anion Gap 7 (5-15); BUN 16 mg/dL (7-18); BUN/Creat Ratio 17.2 RATIO (10-20); Calcium,Total 8.5 mg/dL (8.5-10.1); Chloride 110 mmol/L (98-107); Creatinine, Serum 0.93 mg/dL (0.55-1.02); EST Glomerular Filtration Rate 66 mL/min (>60); Est Glom Filt Rate - Afr Amer 80 mL/min (>60); Glucose 178 mg/dL (74-106); Phosphorus 2.7 mg/dL (2.5-4.9); Potassium 3.7 mmol/L (3.5-5.1); Sodium Level 145 mmol/L (136-145)
--- NOTE | 2023-01-08 07:47 | PN.HOSP_ITS ---
Reason for Visit Reason for Visit: Diagnoses Chronic obstructive pulmonary disease with (acute) exacerbation (01/07/23) Subjective Subjective Patient seen much more awake and interactive compared to when first admitted. Requested for PT OT and health care social worker to assist with discharge planning Objective Data Objective Data Vital Signs: Vital Signs Temp Pulse Resp BP Pulse Ox O2 Del Method O2 Flow Rate 97.5 F L 60 18 103/72 99 Nasal Cannula 2 01/08/23 04:13 01/08/23 07:10 01/08/23 07:10 01/08/23 04:13 01/08/23 07:10 01/08/23 07:10 01/08/23 07:10 Oxygen Flow Rate (L/min) 2 Oxygen Delivery Method Nasal Cannula Weight: 74.8 kg Body Mass Index (BMI) 29.2 Intake & Output: Intake and Output for Last 24 Hours 01/06/23 01/07/23 01/08/23 23:59 23:59 23:59 Intake Total 1807.5 / 1807.5 1200 / 1200 Output Total 200 / 200 Balance 1607.5 / 1607.5 1200 / 1200 Medical Nutrition Assessment Dietitian: Malnutrition Criteria Met Start: 01/07/23 15:27 Freq: Status: Active Protocol: Document 01/07/23 15:27 RMA (Rec: 01/07/23 15:27 RMA Desktop) Nutrition Malnutrition Evidence of Malnutrition Exists Yes Malnutrition (moderate): Chronic Evidenced By Suboptimal Energy Intake ( Moderate),Weight Loss ( Moderate) Clinical Problem Chronic Disease or Condition Related Malnutrition Etiology Moderate pro-lisa malnutrition in the context of chronic disease related to inadequate oral intake and increased energy expenditure Signs/Symptoms as evidenced by oral intake meeting less than 75% estimated nutrition needs x past 4-6 months, oral intake meeting less than 50% estimated nutrition needs x past 1 month and weight loss~9 % x 6 months Status Active Problem Recommendation Dietitian Recommendations/Changes Will adjust diet to 2000 calorie/consistent carbohydrate. Will add 120 ml strawberry ensure plus high protein TID w / meals. Adjust ONS as needed to prevent further weight gain. Lab / Micro Data Result Diagrams: 01/07/23 06:38 01/08/23 06:45 Labs: Laboratory Results - last 24 hr 01/07/23 06:38: TSH 0.35 L 01/07/23 12:50: POC Glucose 147 H 01/07/23 15:56: POC Glucose 287 H 01/07/23 21:55: POC Glucose 247 H 01/08/23 06:43: POC Glucose 191 H 01/08/23 06:45: Sodium 145, Potassium 3.7, Chloride 110 H, Carbon Dioxide 28.0, Anion Gap 7, BUN 16, Creatinine 0.93, Estim Creat Clear Calc 57.20, Est GFR (MDRD) Af Amer 80, Est GFR (MDRD) Non-Af 66, BUN/Creatinine Ratio 17.2, Glucose 178 H, Calcium 8.5, Phosphorus 2.7 Micro: Microbiology 01/07/23 06:20 Nasal Secretion SARS-CoV-2 & FLU Antigen (Rapid) - Final Rhythm Strip Rhythm Strip: Sinus Rhythm Rate: 72 Ectopy: None Physical Exam Narrative GENERAL: In no apparent distress HEENT: Atraumatic; normocephalic EYES; Anicteric, Normal Conjunctiva NECK; supple, normal thyroid, RESPIRATORY: Diminished to auscultation with occasional wheezes CARDIOVASCULAR: Regular S1 S2, GI: soft, normoactive bowel sounds, : No Renal angle tenderness; EXTREMITIES: No edema, no clubbing, MUSCULOSKELETAL: no muscle wasting NEURO: no lateralizing signs. SKIN: No rash PSYCH; Flat affect Assessment & Plan Assessment/Plan (1) COPD exacerbation: PLAN: Plan Patient is a 52-year-old lady with history of COPD dependent on oxygen presented with increasing generalized weakness 1.? COPD with acute exacerbation ?Patient admitted to regular nursing floor managed with bronchodilator treatment, supplemental oxygen and systemic steroid.? 2.? Chronic hypoxic respiratory failure ?Secondary to COPD patient is on Baseline home oxygen. Patient is apparently on oxygen and has run out for the past couple of days 3.? Diabetes mellitus type II -patient's oral hypoglycemics held. Placed on long acting insulin, Accu-Cheks a.c. and at bedtime and covered with sliding scale insulin 4.? Hypertension - Blood pressure controlled, home medications continued with dose adjustment as needed 5.? Dyslipidemia -Patient is on statin therapy, continued at home dose 6.? Hypothyroidism - Patient is on levothyroxine home dose continued 7.? Chronic congestive heart failure with preserved ejection fraction ?Patient is on diuretics did continue 8. Physical deconditioning - Requested for PT OT eval and health care social worker to assist with discharge planning 9. DVT prophylaxis - On enoxaparin 10. Physical deconditioning - Requested for PT OT eval and health care social worker to assist with discharge planning Time spent in the patient's overall evaluation,decision-making process, review of diagnostic data, adjustment of management, discussion with other providers, nursing nursing and ancillary staff involved in patient's care documentation, 38 Minutes Charges/Coding Visit Charges Inpatient E&M: 59783 Subs Hosp L2
[2023-01-08] MEDS: FLUoxetine 20 MG Capsule 60 MG PO (09:11)
[2023-01-08] MEDS: guaiFENesin 600 MG Tablet PO ×2 (09:11→22:13)
[2023-01-08] MEDS: Pantoprazole Sodium 40 MG Tablet PO ×2 (09:11→22:14)
[2023-01-08] MEDS: Clopidogrel Bisulfate 75 MG Tablet PO (09:11)
[2023-01-08] MEDS: Loratadine 10 MG Tablet PO (09:11)
[2023-01-08] MEDS: Aspirin E.C. 81 MG Tablet PO (09:12)
[2023-01-08] MEDS: predniSONE 20 MG Tablet 40 MG PO (09:12)
[2023-01-08] MEDS: Azithromycin 250 MG Tablet 500 MG PO (09:13)
[2023-01-08] MEDS: Potassium Chloride Oral Tablet 20 MEQ PO ×2 (09:13→18:14)
[2023-01-08] MEDS: Enoxaparin 30 MG/0.3 ML Syringe SC (09:13)
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
--- NOTE | 2023-01-08 11:06 | DS.PCM_ITS ---
Providers Date of Admission: 01/07/23 Date of Discharge: 01/08/23 Primary Care Physician: Dr. Jeanne Lagunas MD Reason For Visit: COPD Diagnosis Discharge Diagnosis (1) COPD exacerbation: Status: Chronic Code(s): J44.1 - Chronic obstructive pulmonary disease with (acute) exacerbation Plan Patient is a 52-year-old lady with history of COPD dependent on oxygen presented with increasing generalized weakness 1.? COPD with acute exacerbation ?Patient admitted to regular nursing floor managed with bronchodilator treatment, supplemental oxygen and systemic steroid.? 2.? Chronic hypoxic respiratory failure ?Secondary to COPD patient is on Baseline home oxygen. Patient is apparently on oxygen and has run out for the past couple of days 3.? Diabetes mellitus type II -patient's oral hypoglycemics held. Placed on long acting insulin, Accu-Cheks a.c. and at bedtime and covered with sliding scale insulin 4.? Hypertension - Blood pressure controlled, home medications continued with dose adjustment as needed 5.? Dyslipidemia -Patient is on statin therapy, continued at home dose 6.? Hypothyroidism - Patient is on levothyroxine home dose continued 7.? Chronic congestive heart failure with preserved ejection fraction ?Patient is on diuretics did continue 8. Physical deconditioning - Requested for PT OT eval and social service director to assist with discharge planning 9. DVT prophylaxis - On enoxaparin 10. Physical deconditioning - Requested for PT OT eval and social service director to assist with discharge planning Time spent in the patient's overall evaluation,decision-making process, review of diagnostic data, adjustment of management, discussion with other providers, nursing nursing and ancillary staff involved in patient's care documentation, 38 Minutes Medications at Discharge Home Medications albuterol sulfate 90 mcg/actuation aerosol inhaler 2 puff inhalation Q4H PRN Shortness Of Breath Or Wheezing 03/17/21 aspirin 81 mg tablet,delayed release 81 mg PO DAILY heart health 03/17/21 cetirizine 10 mg tablet 10 mg PO DAILY muscle spasms 03/17/21 clopidogrel 75 mg tablet 75 mg PO DAILY antiplatelet 03/17/21 fluoxetine 20 mg capsule 60 mg PO DAILY mood 03/17/21 folic acid 1 mg tablet 1 mg PO DAILY supplement 03/17/21 ipratropium 0.5 mg-albuterol 3 mg (2.5 mg base)/3 mL nebulization soln 3 ml inhalation TID breathing 03/17/21 levothyroxine 75 mcg tablet 75 mcg PO DAILY thyroid 03/17/21 losartan 25 mg tablet 25 mg PO DAILY BP/heart 03/17/21 metformin 500 mg tablet 500 mg PO BID diabetes 03/17/21 mometasone-formoterol HFA 200 mcg-5 mcg/actuation aerosol inhaler (Dulera) 2 inh inhalation BID breathing 03/17/21 montelukast 10 mg tablet 10 mg PO QHS breathing 03/17/21 pravastatin 10 mg tablet 10 mg PO DAILY cholesterol 03/17/21 trazodone 100 mg tablet 200 mg PO QHS sleep 03/17/21 clonazepam 0.5 mg tablet 0.5 mg PO DAILY PRN Anxiety 07/14/21 albuterol sulfate 2.5 mg/3 mL (0.083 %) solution for nebulization 2.5 mg inhalation Q4H PRN copd 11/19/21 cholecalciferol (vitamin D3) 125 mcg (5,000 unit) tablet (Vitamin D3) 125 mcg PO QWEEK vitamin 11/19/21 ondansetron 8 mg disintegrating tablet 8 mg PO Q12H PRN Nausea 11/19/21 potassium chloride 20 mEq tablet,extended release 20 meq PO BID supplement 11/19/21 roflumilast 250 mcg tablet (Daliresp) 250 mcg PO DAILY copd 11/19/21 tizanidine 4 mg tablet 4 mg PO Q8H PRN Muscle Spasm 11/19/21 pantoprazole 40 mg tablet,delayed release (Protonix) 40 mg PO BID #60 tabs 11/20/21 gabapentin 600 mg tablet 600 mg PO TID nerve pain 12/30/22 azithromycin 250 mg tablet 500 mg PO Q24 #5 tabs 01/08/23 guaifenesin 600 mg tablet, extended release 12 hr (Mucus Relief ER) 600 mg PO BID #14 tabs 01/08/23 prednisone 20 mg tablet 40 mg PO DAILY@0800 #10 tabs 01/08/23 Hospital Course Summary of Care Provided Minutes Spent on Discharge: 38 Physical Exam Narrative GENERAL: In no apparent distress HEENT: Atraumatic; normocephalic EYES; Anicteric, Normal Conjunctiva NECK; supple, normal thyroid, RESPIRATORY: Diminished to auscultation with occasional wheezes CARDIOVASCULAR: Regular S1 S2, GI: soft, normoactive bowel sounds, : No Renal angle tenderness; EXTREMITIES: No edema, no clubbing, MUSCULOSKELETAL: no muscle wasting NEURO: no lateralizing signs. SKIN: No rash PSYCH; Flat affect Medical Records Data Medical Nutrition Assessment Dietitian: Malnutrition Criteria Met Start: 01/07/23 15:27 Freq: Status: Active Protocol: Document 01/07/23 15:27 RMA (Rec: 01/07/23 15:27 RMA Desktop) Nutrition Malnutrition Evidence of Malnutrition Exists Yes Malnutrition (moderate): Chronic Evidenced By Suboptimal Energy Intake ( Moderate),Weight Loss ( Moderate) Clinical Problem Chronic Disease or Condition Related Malnutrition Etiology Moderate pro-lisa malnutrition in the context of chronic disease related to inadequate oral intake and increased energy expenditure Signs/Symptoms as evidenced by oral intake meeting less than 75% estimated nutrition needs x past 4-6 months, oral intake meeting less than 50% estimated nutrition needs x past 1 month and weight loss~9 % x 6 months Status Active Problem Recommendation Dietitian Recommendations/Changes Will adjust diet to 2000 calorie/consistent carbohydrate. Will add 120 ml strawberry ensure plus high protein TID w / meals. Adjust ONS as needed to prevent further weight gain. Weight / BMI Weight Weight: 74.8 kg Body Mass Index (BMI) 29.2 ABG / Lab / Microbiology Data Result Diagrams: 01/07/23 06:38 01/08/23 06:45 Laboratory: Laboratory Results - last 24 hr 01/07/23 12:50: POC Glucose 147 H 01/07/23 15:56: POC Glucose 287 H 01/07/23 21:55: POC Glucose 247 H 01/08/23 06:43: POC Glucose 191 H 01/08/23 06:45: Sodium 145, Potassium 3.7, Chloride 110 H, Carbon Dioxide 28.0, Anion Gap 7, BUN 16, Creatinine 0.93, Estim Creat Clear Calc 57.20, Est GFR (MDRD) Af Amer 80, Est GFR (MDRD) Non-Af 66, BUN/Creatinine Ratio 17.2, Glucose 178 H, Calcium 8.5, Phosphorus 2.7 Microbiology: Microbiology 01/07/23 06:20 Nasal Secretion SARS-CoV-2 & FLU Antigen (Rapid) - Final D/C Instructions Discharge Diet: No restrictions Discharge Activity: Return to Normal Activity Call your doctor if you observe: Fever of 101 or Higher, Shortness of breath, Fainting spells and Chest pain Meaningful Use Info Meaningful Use Diagnoses (Choose all that apply): None applicable Discharge Plan Admission Admit Date/Time: 01/07/23 07:10 Attending Provider: Craig Horner Primary Care Provider: Jeanne Lagunas Discharge Orders/Prescriptions Prescriptions: New azithromycin 250 mg Tablet 500 mg PO Q24 Qty: 5 0RF prednisone 20 mg Tablet 40 mg PO DAILY@0800 Qty: 10 0RF guaifenesin [Mucus Relief ER] 600 mg Tablet Extended Release 12hr 600 mg PO BID Qty: 14 0RF Continued pravastatin 10 mg Tablet 10 mg PO DAILY trazodone 100 mg tablet 200 mg PO QHS Label Comments: TAKE 2 TABLETS BY MOUTH AT BEDTIME NEEDED FOR INSOMNIA. aspirin 81 mg tablet,delayed release (DR/EC) 81 mg PO DAILY cetirizine 10 mg tablet 10 mg PO DAILY clopidogrel 75 mg tablet 75 mg PO DAILY fluoxetine 20 mg capsule 60 mg PO DAILY Label Comments: TAKE 1 CAPSULE BY MOUTH ONCE DAILY. *TAKE WITH PROZAC 40 MG* metformin 500 mg Tablet 500 mg PO BID ipratropium-albuterol 0.5 mg-3 mg(2.5 mg base)/3 mL Solution For Nebulization 3 ml INHALATION TID levothyroxine 75 mcg Tablet 75 mcg PO DAILY losartan 25 mg Tablet 25 mg PO DAILY folic acid 1 mg Tablet 1 mg PO DAILY montelukast 10 mg Tablet 10 mg PO QHS albuterol sulfate 90 mcg/actuation HFA aerosol inhaler 2 puff INHALATION Q4H PRN (Reason: Shortness Of Breath Or Wheezing) Label Comments: INHALE 2 PUFFS BY MOUTH EVERY 4 HOURS NEEDED (ANY BRAND OK) Dulera 200-5 mcg/actuation HFA aerosol inhaler 2 inh INHALATION BID clonazepam 0.5 mg Tablet 0.5 mg PO DAILY PRN (Reason: Anxiety) albuterol sulfate 2.5 mg /3 mL (0.083 %) Solution For Nebulization 2.5 mg INHALATION Q4H PRN (Reason: copd) roflumilast [Daliresp] 250 mcg Tablet 250 mcg PO DAILY ondansetron 8 mg Tablet,Disintegrating 8 mg PO Q12H PRN (Reason: Nausea) potassium chloride 20 mEq Tablet Extended Release 20 meq PO BID cholecalciferol (vitamin D3) [Vitamin D3] 125 mcg (5,000 unit) Tablet 125 mcg PO QWEEK tizanidine 4 mg Tablet 4 mg PO Q8H PRN (Reason: Muscle Spasm) pantoprazole [Protonix] 40 mg tablet,delayed release (DR/EC) 40 mg PO BID Qty: 60 0RF gabapentin 600 mg tablet 600 mg PO TID Referrals / Follow Up: Jeanne Lagunas MD [Primary Care Provider] - Within 1 Week Disposition Disposition (needs filled in before D/C Order can be placed): Home Health Service Charges/Coding Visit Charges Inpatient E&M: 64861 Disch Hosp >30min
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
[2023-01-08 12:25] LABS: Bedside Glucose 292 mg/dL (74-106)
[2023-01-08] MEDS: Acetaminophen 325 MG Tablet 650 MG PO (12:35)
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
[2023-01-08] MEDS: FLU VACC QS2022-23(6MOS UP)/PF 60 MCG/0.5 ML SYRINGE IM (14:53)
--- NOTE | 2023-01-08 15:38 | CPS ---
Patient is being discharged and her SMI and PEP are packed up.
[2023-01-08 18:10] LABS: Bedside Glucose 159 mg/dL (74-106)
[2023-01-08] MEDS: traZODone 100 MG Tablet 200 MG PO (22:13)
[2023-01-08] MEDS: Montelukast 10 MG Tablet PO (22:13)
[2023-01-08] MEDS: Pravastatin 20 MG Tablet 10 MG PO (22:14)
[2023-01-08 23:00] LABS: Bedside Glucose 159 mg/dL (74-106)
[2023-01-09] VITALS (8 sets, daily range): BP systolic 104–116; BP diastolic 67–84; PULSE 67–82; RESP 16–20; TEMP 36.7–37.4; O2SAT 94–99
[2023-01-09] MEDS: Ipratropium/Albuterol Sulfate 3 ML AMPUL.NEB INHALATION ×3 (02:44→16:09)
[2023-01-09] MEDS: Levothyroxine 75 MCG Tablet PO (06:33)
[2023-01-09] MEDS: Gabapentin 600 MG Tablet PO ×2 (06:33→14:51)
[2023-01-09 07:05] LABS: Bedside Glucose 112 mg/dL (74-106)
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
[2023-01-09] MEDS: predniSONE 20 MG Tablet 40 MG PO (08:45)
[2023-01-09] MEDS: FLUoxetine 20 MG Capsule 60 MG PO (08:45)
[2023-01-09] MEDS: guaiFENesin 600 MG Tablet PO (08:45)
[2023-01-09] MEDS: Pantoprazole Sodium 40 MG Tablet PO (08:45)
[2023-01-09] MEDS: Potassium Chloride Oral Tablet 20 MEQ PO (08:45)
[2023-01-09] MEDS: Aspirin E.C. 81 MG Tablet PO (08:45)
[2023-01-09] MEDS: Clopidogrel Bisulfate 75 MG Tablet PO (08:46)
[2023-01-09] MEDS: Losartan Potassium 25 MG Tablet PO (08:46)
[2023-01-09] MEDS: Loratadine 10 MG Tablet PO (08:46)
[2023-01-09] MEDS: Lidocaine 5% Patch 1 PATCH TOPICAL (08:46)
[2023-01-09] MEDS: Enoxaparin 30 MG/0.3 ML Syringe SC (08:52)
[2023-01-09] MEDS: Azithromycin 250 MG Tablet 500 MG PO (08:52)
[2023-01-09] MEDS: Albuterol 2.5 MG/3 ML VIAL.NEB. INHALATION (09:16)
--- NOTE | 2023-01-09 09:16 | NURSING ---
Toileted and assisted pt to sit in chair. Needs breathing tx. This RN called [facility] and they are coming up to give breathing tx.
[2023-01-09] MEDS: Insulin Lispro 100 UNIT/ML INSULN.PEN SC ×2 (11:39→16:15)
[2023-01-09 12:00] LABS: Bedside Glucose 166 mg/dL (74-106)
[2023-01-09] MEDS: tiZANidine HCl 2 MG Tablet 4 MG PO (14:52)
[2023-01-09 16:35] LABS: Bedside Glucose 262 mg/dL (74-106)
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
== END 2023-01-09 16:47 | disposition home health service (06) | DRG 140 ==
LOC: ED 07:00 → MS3 07:34
PROVIDERS: Admitting Provider Internal Medicine; Emergency Provider Emergency Medicine; PCP Family Medicine; Visit Provider Internal Medicine
DX: J44.1 Chronic obstructive pulmonary disease with (acute) exacerbation (principal); I69.351 Hemiplegia and hemiparesis following cerebral infarction affecting right dominant side; I11.0 Hypertensive heart disease with heart failure; J96.11 Chronic respiratory failure with hypoxia; I50.32 Chronic diastolic (congestive) heart failure; E11.9 Type 2 diabetes mellitus without complications; F31.9 Bipolar disorder, unspecified; E78.5 Hyperlipidemia, unspecified; E03.9 Hypothyroidism, unspecified; F34.1 Dysthymic disorder; F17.210 Nicotine dependence, cigarettes, uncomplicated; M54.50 Low back pain, unspecified; T41.5X6A Underdosing of therapeutic gases, initial encounter; Z91.120 Patient's intentional underdosing of medication regimen due to financial hardship; Z23 Encounter for immunization; G89.29 Other chronic pain; Z20.822 Contact with and (suspected) exposure to COVID-19; Z99.81 Dependence on supplemental oxygen; Z79.82 Long term (current) use of aspirin; Z79.51 Long term (current) use of inhaled steroids; Z79.02 Long term (current) use of antithrombotics/antiplatelets; Z79.890 Hormone replacement therapy; Z79.899 Other long term (current) drug therapy
CPT/HCPCS: 36415; 36600; 70450; 71046; 80048; 82803; 82962; 84100; 84443; 84484; 85025; 87428; 93005; 94640; 94668; 97110; 97162; 97166; 97530; 99252; 99285; 99406; J7030; 90686; A4216; G0463